=== PATIENT | male | born 1955 | race African-American/Black ===

== ENCOUNTER 2018-01-05 15:05 | Inpatient (IN) | payer MEDICARE ==
[2018-01-05] MEDS ORDERED: Ondansetron ODT 4 MG TAB ONE (16:22)
[2018-01-05] MEDS ORDERED: Acetaminophen 325 MG TAB PO PRN (17:33)
[2018-01-05] MEDS ORDERED: Zolpidem Tartrate 5 MG TAB PO PRN (17:33)
[2018-01-05] MEDS ORDERED: Ondansetron ODT 4 MG TAB PO PRN (17:33)
[2018-01-05] MEDS ORDERED: HYDROcodone/Acetaminophen 10/325 mg Tablet PO PRN (17:33)
[2018-01-05] MEDS ORDERED: Ondansetron HCl/PF 4 MG/2 ML Vial IVP PRN (17:33)
[2018-01-05 17:57] VITALS: BMI 26.6
[2018-01-05] MEDS: Nicotine 14 MG PATCH TD SCH (18:25)
[2018-01-05] MEDS: Famotidine 20 MG TAB PO SCH (20:38)
[2018-01-05] MEDS: HYDROcodone/Acetaminophen 10/325 mg Tablet PO PRN (20:39)
[2018-01-05] MEDS: Carvedilol 3.125 MG TAB PO SCH (20:40)
[2018-01-05] MEDS: Dexamethasone 10 MG/ML VIAL SLOW IVP SCH (20:40)
[2018-01-06 06:55] LABS: #Lymphocytes 1.2 thou/uL (1.20-3.40); #Monocytes 0.5 thou/uL (0.11-0.59); %Basophils 0.2 % (0.0-1.0); %Eosinophils 0.2 % (0.0-10.0); %Lymphocytes 12.7 % (21.0-51.0); %Monocytes 5.3 % (0.0-10.0); %Neutrophils 81.6 % (42.0-75.0); Hemoglobin 14.3 g/dL (14.0-18.0); Mean Corpuscular HGB CONC 33.7 g/dL (32.0-36.0); Mean Corpuscular Hemoglobin 28.9 pg (27.0-31.0); Mean Corpuscular Volume 85.8 fL (78.0-98.0); Mean Platelet Volume 7.4 fL (7.4-10.4); Platelet Count 237 thou/uL (130-400); RBC Distribution Width 12.6 % (11.5-14.5); Red Blood Cell (RBC) Count 4.93 mill/uL (4.70-6.10); White Blood Cell (WBC) Count 9.8 thou/uL (4.8-10.8)
[2018-01-06 07:14] LABS: Anion Gap 13 mmol/L (10-20); BUN (Urea Nitrogen) 11 mg/dL (8.4-25.7); Calc. Creatinine Clearance 90 mL/min (70-130); Calcium 9.5 mg/dL (7.8-10.44); Carbon Dioxide 21 mmol/L (23-31); Chloride 107 mmol/L (98-107); Estimated GFR-MDRD Greater than 90; Glucose 181 mg/dL (80-115); Potassium 4.4 mmol/L (3.5-5.1); Sodium 137 mmol/L (136-145)
[2018-01-06] MEDS: Clopidogrel Bisulfate 75 MG TAB PO SCH (09:12)
[2018-01-06] MEDS: Famotidine 20 MG TAB PO SCH ×2 (09:12→21:12)
[2018-01-06] MEDS: Carvedilol 3.125 MG TAB PO SCH ×2 (09:12→21:12)
[2018-01-06] MEDS: Aspirin 325 MG TAB PO SCH (09:12)
[2018-01-06] MEDS: Lisinopril 10 MG TAB PO SCH (09:12)
[2018-01-06] MEDS: Dexamethasone 10 MG/ML VIAL SLOW IVP SCH ×2 (09:16→21:12)
--- NOTE | 2018-01-06 10:16 | CT ---
CT OF THE CHEST WITH CONTRAST: COMPARISON: 01/05/18. HISTORY: Right lung mass with likely mediastinal adenopathy. Evaluate the adenopathy further. TECHNIQUE: Multiple contiguous axial images were obtained in a CT of the chest with contrast. Coronal reformats were performed. FINDINGS: A spiculated medial right upper lobe mass is seen measuring 3.8 cm in size. There is an enlarged rig ht hilar lymph node measuring 1.5 cm in size. There are enlarged mediastinal lymph nodes. In the pr etracheal location, there is a 4.4 cm lymph node. In the subcarinal location, there is a 1.9 cm enla rged lymph node. Calcifications are seen in the right hilar region which likely represent a calcifie d right hilar lymph node. A calcified granuloma is seen in the right lung base. Emphysematous changes are seen in the lungs. No pneumothorax or pleural effusion are seen. Atelecta sis is seen in the lung bases. The visualized subdiaphragmatic structures show no acute abnormality. Calcifications in the spleen a re from prior granulomatous disease. No abnormality is seen in the right lobe of the liver and the p rior finding on CT was likely artifactual and secondary to motion. Degenerative changes are seen in the spine. The chest wall soft tissues are unremarkable. IMPRESSION: 1. Right upper lobe mass is consistent with a primary lung cancer. 2. There is right hilar and mediastinal lymphadenopathy. POS: [facility]
--- NOTE | 2018-01-06 11:30 | MRI ---
MRI OF THE BRAIN WITHOUT AND WITH CONTRAST: COMPARISON: CT brain 01/05/18. HISTORY: Intracranial metastatic disease from patient's lung cancer. TECHNIQUE: Multiplanar, multisequence MRI images were obtained of the brain without and with IV contrast. FINDINGS: There are multiple abnormal enhancing masses seen scattered throughout both cerebral and cerebellar h emispheres. Only the 2 largest lesions are appreciated on CT. The largest lesion is seen in the mid line of the posterior cranial fossa measuring 3.1 cm in size. The cerebellar lesion, bilateral front al lesions, and bilateral occipital lesions demonstrate adjacent edema. There is susceptibility roger fact within the right frontal and cerebellar regions as well as high T1 signal which likely represent s a small amount of hemorrhage within these metastatic lesions. There is no evidence of hydrocephalus at this time. The expected flow voids are present. The corpus callosum, pituitary, and craniocervical junction are unremarkable. The calvarium and overlying soft tissues are unremarkable. The visualized paranasal sinuses and mast oid air cells are well aerated. IMPRESSION: Numerous intracranial intraparenchymal metastases. The largest is in the posterior fossa and causes effacement of the 4th ventricle and cerebral aqueduct. POS: [facility]
[2018-01-06] MEDS ORDERED: ISOVUE-370 76%-LOCM 1 ML ONE (12:27)
[2018-01-06] MEDS ORDERED: Gadobenate Dimeglumine 529 MG/1 ML (20ML VIAL) ONE (12:33)
--- NOTE | 2018-01-06 13:37 | CON ---
DATE OF CONSULTATION: 01/06/2018 REASON FOR CONSULTATION: Mr. Chi is a 62-year-old gentleman who appears to have been diagnosed with lung cancer with brain metastasis. Clinically, this appears to be a stage IV, T2 N2 M1 lesion. HISTORY OF PRESENT ILLNESS: Mr. Chi states that over about the last month or month and a half, he has had bad headaches. These headaches were daily and sometimes it wake him up. Ibuprofen help some. He had some nausea but no vomiting. He also reported some generalized weakness as well as difficulty with his balance. He has no significant weight loss. Finally, he went to the emergency room for evaluation and had a CT scan of the head which showed 2 lesions in the brain with surrounding vasogenic edema. The largest measured 3.2 cm and was in the posterior fossa and causing some effacement on the fourth ventricle. The other lesion measured 1.7 cm in the right frontal lobe. He also had a CT scan of the chest without contrast. This showed a 3.7 cm lesion in the right upper lobe of the lung. There was mediastinal adenopathy. There was question of a liver lesion. However, the exam was limited by the lack of IV contrast. He was subsequently transferred to [facility] for workup and evaluation from [place]. He was started on dexamethasone. His headaches are a little better this morning. He is still having difficulty with his balance. He denies any shortness of breath. He has had a chronic nonproductive cough which he attributes to smoking. He denies any hemoptysis. He has some occasional chest pain. He also reports some back pain which he has had longstanding. This is mostly in the upper back in the shoulder region. This has been present for 15-20 years. This does come and go. He denies any new areas of pain. He has no weight loss and voices no other complaints. PAST MEDICAL HISTORY: 1. Hypertension. 2. Coronary artery disease status post stent placement in 2012 with questionable history of myocardial infarction. 3. Bone spurs. 4. He denies other medical or surgical problems. MEDICATIONS: Lisinopril, Plavix, Coreg, Lipitor, aspirin, Decadron, Pepcid, and nicotine patch. ALLERGIES: No known medical allergies. SOCIAL HISTORY: He does live in [place], [place] with his . He smokes 1 pack per day and has done so for at least 50 years. In the past, he smoked at times more than 1 pack per day. He denies any alcohol use now. He was a heavy drinker in the past. He is a retired/disabled secondary to his foot issues. FAMILY HISTORY: His mother is still living at age 85. His father at 65 from cancer, the type of which is unknown to him. There is strong family history of diabetes in his brothers and sisters. REVIEW OF SYSTEMS: Twelve system review of system was performed and was otherwise negative. PHYSICAL EXAMINATION: VITAL SIGNS: Height 5 feet 5 inches, weight 160 pounds, blood pressure is 107/ 58, pulse is 91, respirations are 20, temperature is 98.5, O2 saturation is 93% on room air. GENERAL: He is alert and oriented and in no apparent distress. He is well- developed and well-nourished. Karnofsky performance status is 70%. EYES: Pupils equal, round, react to light. Extraocular movements are intact. ENT: Oral cavity and oropharynx normal without lesion or erythema. Palate elevates symmetrically. Gingiva is intact. NECK: Supple without preauricular, submandibular, cervical, supraclavicular adenopathy. No thyromegaly. Larynx midline. LUNGS: Breathing nonlabored. Clear to auscultation and percussion. HEART: Regular rate and rhythm without murmur. No lower extremity edema. BACK: No tenderness on fist percussion of his spine. LYMPHATIC: No axillary or inguinal adenopathy. ABDOMEN: Bowel sounds present. Soft, nontender, nondistended, without mass or hepatosplenomegaly. Liver percusses to normal size. SKIN: Without rash or purpura. NEUROLOGIC: Cranial nerves II-XII grossly intact. Motor strength is 5/5 in both upper and lower extremities in all muscle groups tested. Reflexes are normal and symmetrical. Gait reveals him to be unsteady. Cerebellar point to point testing reveals some slowness and some inaccuracy on both sides. LABORATORY AND X-RAY FINDINGS: CBC revealed a white blood cell count 9800 with a hemoglobin of 14.3, hematocrit of 42.3, platelet count of 237,000. Chemistry group showed normal electrolytes. His creatinine was 0.88. His glucose was 181. RADIOLOGIC: CT scan of the head and CT scan of the chest were both personally reviewed. CT scan of the head shows 2 circumscribed lesions. One is in the posterior fossa in the midline and measures 3.2 cm with effacement of the fourth ventricle. There is no evidence of hydrocephalus. There is surrounding vasogenic edema. The other lesion is in the right frontal lobe and measured 1.7 cm with surrounding vasogenic edema. The exam is limited by lack of contrast. CT scan of the chest shows a 3.7 cm right upper lobe lung mass. There is definitely mediastinal adenopathy in the paratracheal region on the right side. There is question of liver metastasis. Again, lack of contrast limits the CT scan of the chest. ASSESSMENT: Mr. Chi is a 62-year-old gentleman who likely has a clinical stage IV, T2 N2 M1 lung carcinoma. Likely this is going to be a nonsmall cell carcinoma of the lung. He has other comorbidities including a past coronary artery disease which seems to be under good control at the present time. PLAN: I had a long discussion with Mr. Chi regarding his diagnosis, prognosis, prognostic factors, and treatment options. His was also present in the room. I explained the likely diagnosis of lung cancer having metastasized to the brain. I explained that this is a stage IV disease and is going to be very difficult to cure. We then discussed how we should manage his lung cancer. I explained that the first issue is to obtain tissue diagnosis. Pulmonary has already been consulted for possible bronchoscopy. This will help establish the diagnosis, so that we can best determine his treatment course. I do agree with the initiation of Decadron, has already been done. Hopefully, this will improve his symptoms. I would recommend that we obtain an MRI of the brain, as well as a repeat CT scan of the chest with contrast. This will help to further staging characterize the disease also. Once we have made a tissue diagnosis and have obtain the above tests, we can then determine a treatment course. I explained to Mr. Chi that we may have several options in terms of managing the tumor in the brain. Depending on the MRI of the results, we may want to consider either surgical resection of the cerebellar mass since it is causing all of his symptoms followed by radiation therapy to the brain versus just proceeding with radiation therapy to the brain. The rest of his disease would likely be managed with some form of chemotherapy. Thus recommendations for treatment will be depending on all of the results obtained above. I will continue to follow the patient with you and will make additional recommendations once the above answers are known. Radiation can be initiated at the appropriate time on an outpatient basis. Thank you for this interesting consultation. MARCELLUS
[2018-01-06] MEDS: Nicotine 14 MG PATCH TD SCH (17:36)
[2018-01-06] MEDS ORDERED: Lidocaine 4% PF 5 ML AMP NEB SCH (20:00)
[2018-01-06] MEDS: HYDROcodone/Acetaminophen 10/325 mg Tablet PO PRN (21:11)
--- NOTE | 2018-01-07 04:39 | CON ---
DATE OF CONSULTATION: 01/06/2018 SERVICE: Pulmonary Medicine. REASON FOR CONSULTATION: Pulmonary mass. HISTORY OF PRESENT ILLNESS: The patient is a 62-year-old -Mone[place] male with past medical his tory significant for a 15-gveq-dvmx history of smoking. He does not have any dyspnea on exertion shelli t limits his activity. That being said, for the last 2-3 months, he has had increasing cough. He de nies any hemoptysis. He denies any significant weight changes. That being said, he had a chest x-ra y which was abnormal. This prompted a CT scan. Because of headache that has been ongoing for the al st 2-3 weeks, he had a CT of the head. Multiple lesions were found in the brain. There was a pulmon naif mass and possible mediastinal lymphadenopathy as well. The patient is not clear about what is ca using these issues. He denies any current fevers or chills. He is not coughing up any sputum. He h as no shortness of breath. His headaches have resolved since starting on Decadron. PAST MEDICAL HISTORY: 1. Coronary artery disease. 2. Hypertension. PAST SURGICAL HISTORY: None. FAMILY HISTORY: Multiple relatives have of cancer and/or were struck with cancer. SOCIAL HISTORY: He lives in [place], [place] with his . He has cut back to 1 pack per day. He s moked for the past 40 years on an average it has been a pack and a half a day. He denies any alcohol or illicit drug use. He has no exposure to chemicals, dust, asbestos or tuberculosis that he is michele re of. ALLERGIES: No known drug allergies. MEDICATIONS: List of his inpatient medications was reviewed. No specific updates were made at this time. REVIEW OF SYSTEMS: General, head, ears, eyes, nose, throat, cardiovascular, respiratory, GI, , mus culoskeletal, neurologic and skin is negative except as mentioned in the HPI. PHYSICAL EXAMINATION: VITAL SIGNS: Afebrile, pulse 91, blood pressure 132/81, respirations 20, saturation 96% on room air. GENERAL: The patient is awake and alert, in no apparent distress. LUNGS: Decreased air entry. Slightly prolonged expiratory phase, but no wheezing or rhonchi appreci ated. HEART: Normal rate, regular. ABDOMEN: Soft, nontender, nondistended. Bowel sounds are positive. MUSCULOSKELETAL: No cyanosis or clubbing. No pitting in the bilateral lower extremities. NEUROLOGIC: Grossly nonfocal. LYMPHADENOPATHY: Evaluation of the axillary, supraclavicular regions, inguinal, and periumbilical ar eas did not demonstrate any significant nodular abnormalities there. IMAGING: CT of the chest demonstrates right upper lobe mass consistent with primary lung cancer. It appears that there is probably some endobronchial disease. There is right hilar and mediastinal lym phadenopathy present. ASSESSMENT: 1. Lung mass. 2. Mediastinal lymphadenopathy. 3. Brain masses. PLAN: We will start with bronchoscopy. I discussed the multiple different risks associated with bro nchoscopy with the patient. The biggest ones in him are going to be bleeding, pneumothorax, and mathew iation of the brain. Any one of these things could be potentially devastating causing a lack of bloo d flow to the brain and permanent damage. He understands that it is unlikely risk, but it is a possi bility given her current situation. Other ancillary risks were discussed as well. That being said, it is probably the safest approach for us to get a tissue at this time. As such, we will plan on pro ceeding with a bronchoscopy on Sunday under general anesthesia, taking care not to increase intracra nial pressure during the operation if possible. I will have the patient return to clinic early next week to follow up the results of the biopsy. Hopefully, we will be able to get the patient a tissue diagnosis, so that we can move forward with his therapeutic options. Of note, I would perform this p rocedure tomorrow morning, but unfortunately, I was requested to present for jury duty.
[2018-01-07] MEDS: Lisinopril 10 MG TAB PO SCH (08:06)
[2018-01-07] MEDS: Carvedilol 3.125 MG TAB PO SCH ×2 (08:06→21:12)
[2018-01-07] MEDS: Clopidogrel Bisulfate 75 MG TAB PO SCH (08:06)
[2018-01-07] MEDS: Famotidine 20 MG TAB PO SCH ×2 (08:06→21:12)
[2018-01-07] MEDS: Dexamethasone 10 MG/ML VIAL SLOW IVP SCH ×2 (08:07→21:12)
[2018-01-07] MEDS: Aspirin 325 MG TAB PO SCH (08:09)
--- NOTE | 2018-01-07 10:30 | PDOC.PN ---
- Subjective Encounter Start Date: 01/07/18 Encounter Start Time: 10:28 DOING WELL EXCEPT FOR SOME ANXIETY ABOUT THE BIOPSY. HEADACHE IS IMPROVED. - Objective MAR Reviewed: Yes Vital Signs & Weight: Vital Signs (12 hours) Temp Pulse Resp BP BP Pulse Ox 01/07/18 08:06 128/76 01/07/18 07:36 97.4 F L 74 18 128/76 95 Weight Weight 160 lb I&O: 01/06/18 01/07/18 01/08/18 06:59 06:59 06:59 Intake Total 500 1500 Balance 500 1500 Result Diagrams: 01/06/18 06:29 01/06/18 06:29 Radiology Reviewed by me: Yes Phys Exam - Physical Examination Constitutional: NAD HEENT: PERRLA, oral pharynx no lesions Neck: no JVD, supple Respiratory: no wheezing, no rales, no rhonchi, clear to auscultation bilateral Cardiovascular: RRR, no significant murmur, no rub Gastrointestinal: soft, non-tender, no distention, positive bowel sounds Musculoskeletal: no edema Psychiatric: normal affect, A&O x 3 Skin: normal turgor Dx/Plan (1) Lung mass Code(s): R91.8 - OTHER NONSPECIFIC ABNORMAL FINDING OF LUNG FIELD Status: Acute Plan: VERY LIKELY LUNG PRIMARY NEOPLASM. BIOPSY TOMORROW. (2) Brain metastases Code(s): C79.31 - SECONDARY MALIGNANT NEOPLASM OF BRAIN Status: Acute Plan: PLAN PENDING THE BIOPSY. SURG. VS XRT VS BOTH. DECADRON HELPING WITH HOLDEN. (3) CAD (coronary artery disease), [place] coronary artery Code(s): I25.10 - ATHSCL HEART DISEASE OF [place] CORONARY ARTERY W/O ANG PCTRS Status: Acute Plan: STABLE. CONTINUE HOME MEDS. (4) HTN (hypertension) Code(s): I10 - ESSENTIAL (PRIMARY) HYPERTENSION Status: Acute Plan: STABLE. CONTINUE WITH HOME MEDS. COREG AND ZESTRIL. (5) Tobacco abuse Code(s): Z72.0 - TOBACCO USE Status: Acute Plan: ON PATCH. - Plan * .
--- NOTE | 2018-01-07 13:53 | PRG ---
DATE OF SERVICE: 01/07/2018 SUBJECTIVE: Mr. Chi is doing better today. His headaches have resolved with the Decadron. He fe els his balance is better. He is able to walk to the bathroom by himself carefully. He has no new s ymptoms. OBJECTIVE: VITAL SIGNS: Height 5 feet 5 inches, weight 160 pounds, blood pressure 128/76, pulse is 74, respirat ions are 18, temperature is 97.4, O2 saturation is 95%. GENERAL: He is alert and oriented and in no apparent distress. Karnofsky performance status remains 70%. NECK: Supple without cervical or supraclavicular adenopathy. No thyromegaly. Larynx midline. LUNGS: Breathing nonlabored. Clear to auscultation and percussion. CARDIOVASCULAR: Heart regular rate and rhythm without murmur. EXTREMITIES: No lower extremity edema. NEUROLOGIC: Motor strength, still good and equal in all extremities. Gait was not tested. RADIOLOGIC: MRI of the brain and CT scan of the chest with contrast performed yesterday were both pe rsonally reviewed and discussed with him. MRI of the brain shows numerous contrast enhancing lesions . There is more than 10 lesions. The largest is in the cerebellum and is causing some effacement of the fourth ventricle. There is no hydrocephalus. There is surrounding vasogenic edema. CT of the chest confirms the right upper lobe lung mass with mediastinal and subcarinal adenopathy. The liver did not appear to have a lesion as was suggested by the earlier noncontrast CT scan. ASSESSMENT: Mr. Chi is a 62-year-old gentleman who has likely lung cancer with brain metastasis. This is likely going to be a nonsmall cell cancer of the lung. Clinically, this is a stage IV, T2 N 2 M1 lesion. PLAN: He is improved on dexamethasone. I will continue the dexamethasone and once he gets passes br onchoscopy, can transition him over to p.o. dexamethasone. I would treat him with 4 mg p.o. every 6 hours. This could be tapered slowly as an outpatient. We still need to obtain tissue diagnosis. He has been seen by Dr. Rick. A bronchoscopy is planned for tomorrow. Hopefully, this will yield t issue diagnosis. Because he has numerous contrast enhancing lesions, I would not favor neurosurgical intervention unless he deteriorates. I think his best treatment option is going to be with whole-br ain radiation therapy. The logistics of whole-brain radiation therapy as well as the benefits and ri sks were discussed. The simulation procedure was discussed. Side effects would include but not be l imited to skin reaction, hair loss which may be permanent, lower blood counts, fatigue, headache, maritza sea, vomiting, and small risk of damage to his normal brain which might affect mentation or memory. Time was taken to answer all of his questions regarding his treatment options. He is tentatively agr eeable to proceed. He does have transportation as an outpatient when the time comes. We will procee d with bronchoscopy tomorrow and then consider a simulation after that and will start his radiation t herapy after his tissue diagnosis is known.
[2018-01-07] MEDS: Nicotine 14 MG PATCH TD SCH (18:02)
[2018-01-07] MEDS: HYDROcodone/Acetaminophen 10/325 mg Tablet PO PRN (21:11)
[2018-01-08] MEDS: Dexamethasone 10 MG/ML VIAL SLOW IVP SCH ×2 (08:41→20:17)
[2018-01-08] MEDS: Carvedilol 3.125 MG TAB PO SCH ×2 (08:41→21:16)
[2018-01-08] MEDS ORDERED: Ondansetron HCl/PF 4 MG/2 ML Vial ONE (13:19)
[2018-01-08] MEDS ORDERED: Lidocaine 1% PF 5 ML VIAL ONE (13:19)
[2018-01-08] MEDS ORDERED: PROPOFOL 200 MG/20 ML VIAL ONE (13:19)
[2018-01-08] MEDS ORDERED: Succinylcholine Chloride 20 MG/ML 10 ml SYRINGE FS ONE (13:19)
[2018-01-08] MEDS ORDERED: Fentanyl 100 MCG/2 ML VIAL ONE (13:39)
[2018-01-08] MEDS ORDERED: Midazolam HCl 2 mg/2 ml Vial ONE (13:39)
[2018-01-08] MEDS: Clopidogrel Bisulfate 75 MG TAB PO SCH (17:54)
[2018-01-08] MEDS: Famotidine 20 MG TAB PO SCH ×2 (18:04→20:17)
[2018-01-08] MEDS: Aspirin 325 MG TAB PO SCH (18:07)
[2018-01-08] MEDS: Nicotine 14 MG PATCH TD SCH (18:07)
[2018-01-08] MEDS: Lisinopril 10 MG TAB PO SCH (18:07)
--- NOTE | 2018-01-08 18:12 | PRG ---
DATE OF SERVICE: 01/08/2018 SERVICE: Pulmonary Medicine. INTERVAL HISTORY: The patient is doing fine from a respiratory standpoint. He is breathing comforta yun. He is in his usual state of health and does not have any chest discomfort, nausea, vomiting, fe vers or chills. Otherwise, there has been no interval change to his condition. PHYSICAL EXAMINATION: VITAL SIGNS: Afebrile, pulse 71, blood pressure 158/76, respirations 16, saturation 97% on room air. GENERAL: The patient is awake, alert, in no apparent distress. LUNGS: Decent air entry bilaterally with no prolonged expiratory phase, wheezing, rhonchi or crackle s. HEART: Normal rate, regular. ABDOMEN: Soft, nontender, nondistended. Bowel sounds are positive. MUSCULOSKELETAL: No cyanosis or clubbing. No pitting in the bilateral lower extremities. NEUROLOGIC: Grossly nonfocal. LABORATORY DATA: WBC 9.8, hemoglobin 14.3, platelets 237,000. Basic metabolic profile is otherwise unremarkable. ASSESSMENT: 1. Lung mass. 2. Mediastinal lymphadenopathy. 3. Brain masses. PLAN: We will perform a bronchoscopy today. Hopefully, we can get the patient a sample this lesion so that we can figure out what it is. We will continue to follow while the patient remains in house, but from my perspective, once we collect our sample, he will be in a position where we can consider transitioning him out of the hospital.
--- NOTE | 2018-01-08 21:15 | OP ---
DATE OF SERVICE: 01/08/2018 SERVICE: Pulmonary Medicine. PROCEDURE: Fiberoptic bronchoscopy with: 1. Visual airway inspection. 2. Bronchial washing from the right upper lobe. 3. Endobronchial biopsies from the right upper lobe. PREPROCEDURE DIAGNOSIS: Pulmonary mass. POSTPROCEDURE DIAGNOSIS: Pulmonary mass. PROCEDURE SENIOR TELECOMMUNICATIONS SPECIALIST: Raffaele Rick M.D. MEDICATIONS USED: For list of medications, please refer to anesthesia documentation. PREANESTHESIA ASSESSMENT: H and P had been performed. The patient's medications and allergies were reviewed. Informed consent was obtained after discussing the risks, benefits, and rationale for perf orming the procedure as well as alternative options. DESCRIPTION OF PROCEDURE: A timeout was performed, identifying the correct procedure and patient wit h name and date of . A diagnostic fiberoptic bronchoscope was introduced through the existing e ndotracheal tube. Tracheobronchial tree inspection was carried out with clear identification of the right upper lobe, right middle lobe, right lower lobe, left upper lobe, lingula, and left lower lobe. Anatomy was normal to the segmental level with the exception of an endobronchial mass in the right upper lobe. There was an anterior and posterior segment. I am not certain where the superior segmen t stem from. That being said, in the posterior segment, the more superior bronchus was completely oc cluded by the endobronchial mass. I could not pass any instruments distal to it. Multiple biopsies were taken from this lesion. Bronchial washing was obtained from the same area. Hemostasis was veri fied and bronchoscope was subsequently removed from the patient post procedure. FINDINGS: 1. Endobronchial disease was identified causing 100% occlusion of a subsegment bronchus in the poste rior segment of the right upper lobe. 2. Secretions were thick, but minimal. SPECIMENS OBTAINED: 1. Endobronchial biopsies from the right upper lobe. 2. Bronchial washing from the right upper lobe. COMPLICATIONS: None. ESTIMATED BLOOD LOSS: Less than 5 mL. FLUOROSCOPY TIME: None. DISPOSITION: The patient will return to his floor once he meets criteria.
--- NOTE | 2018-01-08 21:59 | PDOC.PN ---
- Subjective Encounter Start Date: 01/08/18 Encounter Start Time: 19:00 Doing well after his bronch. Headache is improved. - Objective Vital Signs & Weight: Vital Signs (12 hours) Temp Pulse Resp BP BP BP Pulse Ox 01/08/18 19:36 97.6 F 92 16 124/66 94 L 01/08/18 18:09 97.9 F 85 18 121/64 94 L 01/08/18 18:07 121/64 01/08/18 16:25 97.3 F L 72 18 131/81 96 01/08/18 11:20 97.6 F 71 16 158/76 H 97 Weight Weight 160 lb I&O: 01/07/18 01/08/18 01/09/18 06:59 06:59 06:59 Intake Total 1500 1360 900 Balance 1500 1360 900 Result Diagrams: 01/06/18 06:29 01/06/18 06:29 Phys Exam - Physical Examination Neck: no JVD, supple Respiratory: no wheezing, no rales, no rhonchi, wheezing present Cardiovascular: RRR, no significant murmur Gastrointestinal: soft, non-tender, no distention Musculoskeletal: no edema Dx/Plan (1) Lung mass Code(s): R91.8 - OTHER NONSPECIFIC ABNORMAL FINDING OF LUNG FIELD Status: Acute Plan: Likely cancer. Bronch biopsy performed. (2) Brain metastases Code(s): C79.31 - SECONDARY MALIGNANT NEOPLASM OF BRAIN Status: Acute Plan: On Decadron. Will nereyda receive whole brain radiation. (3) CAD (coronary artery disease), [place] coronary artery Code(s): I25.10 - ATHSCL HEART DISEASE OF [place] CORONARY ARTERY W/O ANG PCTRS Status: Acute (4) HTN (hypertension) Code(s): I10 - ESSENTIAL (PRIMARY) HYPERTENSION Status: Acute (5) Tobacco abuse Code(s): Z72.0 - TOBACCO USE Status: Acute - Plan * Watch tonight following biopsy. * Transition to oral decadron tomorrow. * Likely discharge tomorrow.
[2018-01-09 07:26] VITALS: BP 120/73; TEMP 97.4
[2018-01-09] MEDS: Dexamethasone 10 MG/ML VIAL SLOW IVP SCH (09:33)
[2018-01-09] MEDS: Aspirin 325 MG TAB PO SCH (09:34)
[2018-01-09] MEDS: Carvedilol 3.125 MG TAB PO SCH (09:34)
[2018-01-09] MEDS: Clopidogrel Bisulfate 75 MG TAB PO SCH (09:34)
[2018-01-09] MEDS: Lisinopril 10 MG TAB PO SCH (09:34)
[2018-01-09] MEDS: Famotidine 20 MG TAB PO SCH (09:34)
--- NOTE | 2018-01-09 18:58 | PRG ---
DATE OF SERVICE: 01/09/2018 SERVICE: Pulmonary Medicine. INTERVAL HISTORY: The patient is doing fine following bronchoscopy. He does not have any complaints of fevers, chills, nausea or vomiting. He is not coughing up any blood. Otherwise, there has been no interval change to his condition. OBJECTIVE: VITAL SIGNS: Afebrile, pulse 101, blood pressure 120/73, respirations 20, saturation 96% on room air . GENERAL: The patient is awake, alert, no apparent distress. LUNGS: Excellent air entry. There is no prolonged expiratory phase or wheezing present. HEART: Normal rate, regular. ABDOMEN: Soft, nontender, nondistended. Bowel sounds are positive. MUSCULOSKELETAL: No cyanosis or clubbing. No pitting of bilateral lower extremities. NEUROLOGIC: Grossly nonfocal. ASSESSMENT: 1. Lung mass, status post endobronchial biopsy. 2. Mediastinal lymphadenopathy. 3. Brain masses. DISCUSSION AND PLAN: From my perspective, the patient is stable for transition out of the hospital p rovided that we have a plan in place. Pulmonary Critical Care will continue to follow along if he re meg in this location. I will have him return to clinic to see me in the outpatient setting within 3-5 days to follow up the results of the pathology.
--- NOTE | 2018-01-10 08:14 | DIS ---
DATE OF ADMISSION: 01/05/2018 DATE OF DISCHARGE: 01/09/2018 DISCHARGE DIAGNOSES: 1. Lung mass with significant lymphadenopathy, highly suspicious for lung cancer. 2. Brain lesions consistent with metastatic disease. 3. History of coronary artery disease. 4. History of hypertension. 5. History of smoking history. HISTORY OF PRESENT ILLNESS: This patient is a 62-year-old male with a history of tobacco abuse who h as had several weeks of worsening headaches. The patient presented to the [facility] where he had a workup including CT scan revealing what appeared to be metastatic lesions in the b rain. The patient was subsequently transferred to [facility]. HOSPITAL COURSE: The patient was admitted to the hospital, had a CT scan of the chest which revealed a spiculated lesion of 3.8 cm in the right upper lobe along with right hilar lymph node measuring 1. 5 cm about mediastinal lobes, pretracheal location is a 4.4 cm lymph node, and subcarinal area 1.9 cm lymph node, calcifications seen in the right hilar region, likely representing calcified hilar lymph node. An MRI of the brain revealed numerous intracranial and intraparenchymal metastases, the large st in the posterior fossa and causing effacement of the fourth ventricle and cerebral aqueduct. Radi ation Oncology was consulted as well as Pulmonology. Ultimately, Radiation Oncology started the de ent dexamethasone and I felt he might be a reasonable candidate for some whole brain radiation. Pulm onology took the patient for bronchoscopy and performed a biopsy. Once the biopsy was performed, the patient had been seen by Radiation Oncology. He was felt to be stable for discharge. I spoke perso rand with Dr. Fernandez and she will be getting the patient into the medical oncology clinic as well. The patient's symptoms had significantly improved with the Decadron. DISCHARGE PHYSICAL EXAMINATION: VITAL SIGNS: Temperature was 97.4, pulse was 101, blood pressure 120/73, respirations 20, O2 sat 96% on room air. GENERAL: The patient is awake, alert, and oriented. He is pleasant and cooperative. HEART: Regular rate and rhythm without murmurs. LUNGS: Clear bilaterally. ABDOMEN: Soft, nontender, nondistended. EXTREMITIES: Warm and dry. DISPOSITION: The patient will be discharged to home. He is to have a regular diet. His activity le bonnie is as tolerated. He is set up with the Radiation Oncology clinic on the . The Medical Oncol ogy Clinic will work with the patient for an appointment there. DISCHARGE MEDICATIONS: Dexamethasone 4 mg p.o. q.6 hours, lisinopril 10 mg p.o. q. day, Plavix 75 mg q. day, Coreg 3.125 mg 1 p.o. q. day, atorvastatin 40 mg 1 p.o. q. day, aspirin 325 one p.o. q. day, tramadol 50 mg p.o. q.6 hours p.r.n. pain. FOLLOWUP: The patient was encouraged to follow up with his PCP in the next few days and return to [facility] emergency department should he have any problems prior to that time.
[2018-01-11 04:17] LABS: Fungus Stain Final report (.)
== END 2018-01-09 12:47 | disposition home or self-care (01) | DRG 167 ==
LOC: ERS 15:05 → ONC 17:36
PROVIDERS: ADMIT Internal Medicine Infectious Disease; ATTEND Internal Medicine Infectious Disease
PROC: 0BBC8ZX Excision of Right Upper Lung Lobe, Via Natural or Artificial Opening Endoscopic, Diagnostic (ICD-10-PCS; principal; 2018-01-08)
PROC: 0BDC8ZX Extraction of Right Upper Lung Lobe, Via Natural or Artificial Opening Endoscopic, Diagnostic (ICD-10-PCS; 2018-01-08)
DX: C34.11 Malignant neoplasm of upper lobe, right bronchus or lung (principal); C79.31 Secondary malignant neoplasm of brain; I25.10 Atherosclerotic heart disease of native coronary artery without angina pectoris; I10 Essential (primary) hypertension; Z87.891 Personal history of nicotine dependence; R59.1 Generalized enlarged lymph nodes
CPT/HCPCS: 36415; 70553; 71260; 80048; 85025; 87070; 87102; 87116; 87205; 87206; 88112; 88305; 88313; 88341; 88342; 90471; 90732; 99285; A9579; G0009; J1100; J2250; J3010; Q0162

== ENCOUNTER 2018-01-29 06:50 | Outpatient (CLI) | payer MEDICARE ==
--- NOTE | 2018-01-29 08:56 | CT ---
CT CHEST AND ABDOMEN WITH CONTRAST: Multiple axial tomograms were obtained through the chest and abdomen with IV enhancement. INDICATION: Neoplasm of right lung. New baseline. COMPARISON: Comparison is made to CT chest 01/06/18. FINDINGS: Mass in the medial right upper lung is again noted. This mass abuts the mediastinum. AP measurement in the axial plane was recorded at 3.3 cm today. Previously, this AP dimension was recorded at 3.8 cm. There is associated mediastinal pathologic adenopathy. There is a heterogeneous mass in the par atracheal region abutting this medial right lung mass. This mediastinal component is contiguous and may represent mediastinal involvement of the lung mass. Total width in the axial plane including the mediastinal component at the same level as the AP measurement is recorded at 5.4 cm today. Previous width at the same level is unchanged at 5.4 cm. There does appear to be a separate lymph node just inferior in the paratracheal region which extends to the lucinda. This lymph node measures 4.0 cm AP dimension today. This does not appear significantly changed. There is a pathologic lymph node seen posterior to the lucinda which measures 2.0 cm width, unchanged from the prior study. There are densely calcified right hilar lymph nodes which are again noted. Lung ma are otherwise clear. There is abnormal sclerosis noted on the first vertebral body imaged on this study which appears to r epresent C7. This sclerosis appears to involve the posterior elements and is suspicious for metastas is. Images through the abdomen were obtained. The liver, spleen, and pancreas appear unremarkable. The adrenal gland is unremarkable. There is a small low-density focus in the right renal cortex superior ly which appears stable from prior exam measuring approximately 7 mm. The kidneys are otherwise unre markable. Visualized bowel loops unremarkable. Aorta is normal caliber. No adenopathy in the abdomen identifi ed. IMPRESSION: 1. Mass in the medial right upper lung which appears to extend into the mediastinum is again noted. AP dimension is slightly smaller in the axial plane, although the width including the mediastinal co mponent is unchanged. 2. The associated mediastinal adenopathy does not appear significantly changed. 3. Evidence of a sclerotic metastasis involving the C7 vertebra, incompletely evaluated. POS: [facility]
--- NOTE | 2018-01-29 11:23 | NM ---
WHOLE BODY BONE SCAN: CLINICAL HISTORY: Malignant neoplasm of upper lobe, right bronchus. TECHNIQUE: Subsequent IV administration of 33 millicuries of technetium 99m MDP IV. FINDINGS: Scintigraphic imaging of the axial and appendicular skeleton was performed, which revealed no scintig raphic evidence of osseous metastatic disease. There is mild increased scintigraphic activity at the mandibular region, which likely relates to odontogenic disease. There is mild scattered degenerativ e change involving the upper and lower extremities. IMPRESSION: No scintigraphic evidence of osseous metastatic disease. POS: [facility]
[2018-01-29] MEDS ORDERED: Iopamidol 370 76% 100 ML VIAL ONE (12:25)
== END 2018-01-29 06:51 | disposition home or self-care (01) ==
LOC: CT 06:50
PROVIDERS: ATTEND Internal Medicine Medical Oncology
DX: C34.11 Malignant neoplasm of upper lobe, right bronchus or lung (principal); R59.0 Localized enlarged lymph nodes; C79.51 Secondary malignant neoplasm of bone
CPT/HCPCS: 71260; 74160; 78306; A9503

== ENCOUNTER 2018-02-17 12:36 | Observation (INO) | payer MEDICARE ==
[~2018-02-17 12:36] MED LIST: Regadenoson 0.4 MG/5 ML SYRINGE ONE
[2018-02-17] MEDS ORDERED: ISOVUE-370 76%-LOCM 1 ML ONE (12:50)
[2018-02-17] MEDS ORDERED: Bisacodyl 5 MG TAB PO PRN (13:33)
[2018-02-17] MEDS ORDERED: Acetaminophen 325 MG TAB PO PRN (13:33)
[2018-02-17] MEDS ORDERED: Acetaminophen 650 MG Suppository PR PRN (13:33)
[2018-02-17 13:35] LABS: CKMB 0.7 ng/mL (0-6.6); Troponin I Less than 0.010 ng/mL (< 0.028)
--- NOTE | 2018-02-17 14:09 | HP ---
PR[facility] CARE [facility] [place]. CHIEF COMPLAINT: Chest pain. HISTORY OF PRESENT ILLNESS: Mr. Chi is a pleasant 62-year-old gentleman who was seen at [facility] on 02/17/2018. He has a history of metastatic lung cancer, metastasis to brain. He underwent radiation therapy for the last 2 weeks. He is scheduled to start chemotherapy tomorrow. Around 5 or 6 a.m. today, he was woken up from sleep because of chest pain. He reports that the pain is retrosternal, 6/10 in intensity, dull, nonradiating, not accompanied by shortness of breath or li ghtheadedness, but accompanied by nausea. He also reports a chronic cough. He cannot recall any agg ravating or relieving factors for the chest pain. Currently, he does not have chest pain. He denies having similar chest pain in the past. He does have a history of coronary artery disease, status post percutaneous coronary intervention with stent. REVIEW OF SYSTEMS: All other systems reviewed and found to be negative. PAST MEDICAL HISTORY: Metastatic adenocarcinoma of the lung, brain metastases, status post radiation therapy, hypertension, coronary artery disease, status post stent placement in 2012. PAST SURGICAL HISTORY: DIRECT OF REAL ESTATE with stent in 2012, bilateral foot surgery, bronchoscopy in 12/2017. SOCIAL HISTORY: Patient denies any current tobacco use, alcohol use or recreational drug use. FAMILY HISTORY: Denies any family history of premature coronary artery disease. ALLERGIES: LATEX. CURRENT MEDICATIONS: Carvedilol 3.125 mg 2 times a day, Lipitor 40 mg daily, tramadol 50 mg every 6 hours as needed, lisinopril 10 mg daily, Zofran every 6 hours as needed, levothyroxine 75 mcg daily, Compazine p.r.n., meclizine p.r.n., pantoprazole 40 mg daily. PHYSICAL EXAMINATION: GENERAL: On examination, Mr. Chi is awake and alert, not in acute distress. VITAL SIGNS: Blood pressure is 123/76, pulse 74, respiratory rate 18, and oxygen saturation 97% on r oom air. He is afebrile. EYES: No scleral icterus. No conjunctival pallor. ENT: Moist mucosal membranes, no oropharyngeal erythema or exudates. NECK: Supple, nontender. Trachea is midline. RESPIRATORY: Accessory muscles of breathing are not active. Chest wall movements are symmetric bila terally. LUNGS: Clear to auscultation without wheeze, rhonchi or crepitations. CARDIOVASCULAR: S1 and S2 are heard, regular. Peripheral pulses palpable. No carotid bruit, no per icardial rub. ABDOMEN: Soft, nontender, bowel sounds are heard, no hepatomegaly, no splenomegaly. NEUROLOGIC: Cranial nerves II-XII intact. Deep tendon reflexes 2+. MUSCULOSKELETAL: Power is 5/5 in all 4 extremities. SKIN: No rashes or subcutaneous nodules. LYMPHATIC: No cervical lymphadenopathy. PSYCHIATRIC: Normal mood, normal affect, patient is oriented to person, place, and time. DATABASE: Mr. Chi's labs and investigations were reviewed. I reviewed his electrocardiogram, whi ch does not show any ST changes to suggest an acute coronary syndrome. He is in normal sinus rhythm. I also reviewed his chest x-ray which shows right perihilar mass. No pulmonary infiltrates. He fox s a normal white count, normocytic anemia with hemoglobin of 13.5, normal platelet count, normal sodi um, normal potassium, normal creatinine, unremarkable liver profile and normal calcium. ASSESSMENT AND PLAN: Mr. Chi is a pleasant 62-year-old gentleman who was seen at [facility] on 02/17/2018. His problem list includes: 1. Chest pain: Mr. Chi presented with chest pain to the emergency room at [place], and was subs equently transferred here. His troponin I is normal. EKG is unremarkable. We will admit him to the hospital for telemetry monitoring. We will order stress test. The patient is also awaiting CT matt ogram of the chest to rule out pulmonary embolism as ordered by emergency room physician. 2. Lung cancer. Patient is scheduled to have chemotherapy tomorrow. We will discuss with Oncology Service to see what the recommendation would be. 3. Hypertension: Monitor vital signs, titrate antihypertensives as needed. 4. Dyslipidemia: Continue statin. Many thanks for allowing me to participate in your patient's care. Please feel free to contact me wi th any questions or concerns. LEVEL OF RISK: High. LEVEL OF COMPLEXITY: High.
[2018-02-17 17:57] VITALS: BMI 25.3
--- NOTE | 2018-02-17 17:58 | NM ---
MYOCARDIAL PERFUSION EVALUATION: INDICATIONS: A 62-year-old male with chest pain. RADIOPHARMACEUTICAL: Technetium 99m sestamibi 27 millicuries and 10 millicuries IV administered for stress and rest. FINDINGS: There is no significant fixed or reversible defect of the left ventricular gann. Gated imaging reve als wall motion and contractility with a calculated LVEF of 61%. IMPRESSION: 1. There is no scintigraphic evidence of significant ischemia or scar. 2. Normal left ventricular systolic function. POS: [facility]
[2018-02-17] MEDS ORDERED: Meclizine HCl 25 MG TAB PO PRN (18:53)
[2018-02-17] MEDS ORDERED: Prochlorperazine Maleate 5 MG TAB PO PRN (18:53)
--- NOTE | 2018-02-17 20:24 | CT ---
CTA CHEST WITH 3D VOLUME RENDERING: CLINICAL HISTORY: Lung cancer. Chest pain. History of heart disease. FINDINGS: Redemonstration of the patient's known malignancy, centered at the right paramediastinal region. Thi s is slightly smaller when compared to a 01/29/2018 exam and may relate to an interval response to th erapy. Correlate clinically in this regard. There is no significant filling defect in the pulmonary arteries to indicate pulmonary embolus of acu ity. There is mild scattered vascular disease. Pulmonary emphysema is present. No effusion or pneu mothorax. There is osseous degenerative change. Granulomatous calcification is seen at the spleen. There is a partially imaged hypodensity of the left kidney, demonstrated as a cyst on prior imaging. There is slight nodularity of the left adrenal gland. IMPRESSION: 1. No acute pulmonary embolus. 2. Redemonstration of malignancy at the right paramediastinal region, slightly smaller than on the 0 01/19/2018 examination, measuring approximately 5.1 x 4.2 x 3.6 cm. 3. Slight nodularity of the left adrenal gland. The possibility of a developing small mass cannot b e excluded, although it is too small for reliable assessment; therefore, imaging followup should be o btained, which may be performed as an adrenal mass protocol CT of the abdomen, or alternatively, PET/ CT. POS: [facility]
[2018-02-17] MEDS: Dexamethasone 4 MG TAB PO SCH (20:46)
[2018-02-17] MEDS: Carvedilol 3.125 MG TAB PO SCH (20:49)
[2018-02-17] MEDS ORDERED: Atorvastatin Calcium 40 MG TAB PO SCH (21:00)
[2018-02-17] MEDS ORDERED: diphenhydrAMINE 25 MG CAP PO PRN (21:28)
[2018-02-17] MEDS ORDERED: Ondansetron ODT 4 MG TAB PO PRN (22:04)
[2018-02-18 05:01] LABS: #Lymphocytes 1.2 thou/uL (1.20-3.40); #Monocytes 0.5 thou/uL (0.11-0.59); #Neutrophils 6.6 thou/uL (1.40-6.50); %Basophils 0.1 % (0.0-1.0); %Eosinophils 0.4 % (0.0-10.0); %Lymphocytes 14.7 % (21.0-51.0); %Monocytes 5.6 % (0.0-10.0); %Neutrophils 79.1 % (42.0-75.0); Hemoglobin 13.1 g/dL (14.0-18.0); Mean Corpuscular HGB CONC 33.9 g/dL (32.0-36.0); Mean Corpuscular Hemoglobin 29.7 pg (27.0-31.0); Mean Corpuscular Volume 87.4 fL (78.0-98.0); Mean Platelet Volume 6.6 fL (7.4-10.4); Platelet Count 305 thou/uL (130-400); Red Blood Cell (RBC) Count 4.41 mill/uL (4.70-6.10); White Blood Cell (WBC) Count 8.3 thou/uL (4.8-10.8)
[2018-02-18 05:20] LABS: Anion Gap 15 mmol/L (10-20); BUN (Urea Nitrogen) 11 mg/dL (8.4-25.7); Calc. Creatinine Clearance 106 mL/min (70-130); Calcium 8.8 mg/dL (7.8-10.44); Carbon Dioxide 19 mmol/L (23-31); Chloride 106 mmol/L (98-107); Estimated GFR-MDRD Greater than 90; Glucose 197 mg/dL (80-115); Potassium 3.7 mmol/L (3.5-5.1); Sodium 136 mmol/L (136-145)
[2018-02-18] MEDS ORDERED: Lisinopril 5 MG TAB PO SCH (09:00)
[2018-02-18] MEDS ORDERED: Enoxaparin Sodium 40 MG/0.4 ML SYRINGE SC SCH (09:00)
[2018-02-18] MEDS ORDERED: Aspirin 325 MG TAB PO SCH (09:00)
[2018-02-18] MEDS: Carvedilol 3.125 MG TAB PO SCH (10:01)
[2018-02-18] MEDS: Dexamethasone 4 MG TAB PO SCH (10:01)
[2018-02-18 12:39] VITALS: BP 128/66; TEMP 98.3
--- NOTE | 2018-02-18 19:21 | DIS ---
DATE OF ADMISSION: 02/17/2018 DATE OF DISCHARGE: 02/18/2018 PRIMARY CARE PROVIDER: Windy Norris. ADMITTING DIAGNOSIS: Chest pain. DISCHARGE MEDICATIONS: No change was made to his preadmission home medications as dictated on my his tory and physical note dated 01/17/2018. CONDITION OF PATIENT ON THE DAY OF DISCHARGE: Stable. I assessed Mr. Chi on the day of discharge . He denies any chest pain or shortness of breath. Vital signs are stable. S1 and S2 are heard, re gular. Lungs are clear to auscultation bilaterally. HOSPITAL COURSE: Mr. Chi is a pleasant 62-year-old gentleman who was admitted to [facility] on 02/17/[address] angiogram of the chest did not reveal any acute p ulmonary embolus. It redemonstrated malignancy at the right paramediastinal region, slightly smaller than on 01/19/2018 examination. He also had slight nodularity of the left adrenal gland. The possi bility of a developing small mass could not be excluded, although it was too small for level assessme nt. Radiologist recommends adrenal mass protocol CT of the abdomen or PET/CT. He also had a nuclear stress test, which did not show any scintigraphic evidence of significant ische graeme or scar. Left ventricular ejection fraction was 61%. His symptoms resolved during the hospitalization. He is being discharged home in a stable condition. On the day of discharge, he has white count 8300, hemoglobin 13.1, platelet count 305,000. Normal so dium, normal potassium, and normal creatinine. Many thanks for allowing me to participate in your patient's care. Please feel free to contact me wi th any questions or concerns. DISCHARGE DESTINATION: Home.
--- NOTE | 2018-03-01 09:40 | STRESS ---
Acquisition Time: 2018-02-17 15:45:40 Total Exercise Time: 00:00:01 Test Indications: CHEST PAIN Medications: Protocol: LEXISCAN Max HR: 106 BPM 66% of Pred: 159 BPM Max BP: 122/072 mmHG Max Work Load: 1.0 METS RESTING ECG: NORMAL SINUS RHYTHM SYMPTOMS: DYSPNEA ON EXERTION NORMAL BP RESPONSE ECTOPY: NONE ECG STRESS: NO SIGNIFICANT CHANGES INTERPRETATION: AWAIT NUCLEAR IMAGES FOR DEFINITIVE DIAGNOSIS Confirmed by JENNIFER CHANDLER ([id number]), order editor GARCÍA BERNABE ([id number]) on 03/01/2018 9:39:45 AM Referred By: MD Davon VELEZ Confirmed By:JENNIFER CHANDLER
--- NOTE | 2018-03-02 11:12 | EKG ---
Test Reason : EMERGENCY EXAM Blood Pressure : / mmHG Vent. Rate : 071 BPM Atrial Rate : 071 BPM P-R Int : 118 ms QRS Dur : 090 ms QT Int : 406 ms P-R-T Axes : 052 001 025 degrees QTc Int : 441 ms Normal sinus rhythm Normal ECG Confirmed by AARON TURNER DO ([id number]), scientific editor RENNY BURROUGHS ([id number]) on 03/02/2018 11:12:25 AM Referred By: Confirmed By:AARON TURNER DO
== END 2018-02-18 13:03 | disposition home or self-care (01) ==
LOC: ERS 12:36 → 2SW 13:23 → EEVIPCON 13:23
PROVIDERS: ADMIT Internal Medicine; ATTEND Internal Medicine
DX: R07.9 Chest pain, unspecified (principal); I10 Essential (primary) hypertension; I25.10 Atherosclerotic heart disease of native coronary artery without angina pectoris; E78.5 Hyperlipidemia, unspecified; Z91.040 Latex allergy status; Z79.899 Other long term (current) drug therapy
CPT/HCPCS: 71275; 78452; 80048; 82550; 82553; 84484; 85025; 93005; 93017; 94760; 96372; 99285; A9500; G0378 ×2; 36415; J1650; J2785; J8540

== ENCOUNTER 2018-02-25 09:07 | Day surgery (SDC) | payer MEDICARE ==
[2018-02-25] MEDS ORDERED: Sodium Chloride 0.9% 30 ML ONE (09:57)
[2018-02-25] MEDS ORDERED: SODIUM CHLORIDE 0.9% IVPB SCH ×3 (10:00)
[2018-02-25] MEDS ORDERED: Dexamethasone 10 MG, Ondansetron 2MG/ML MDV 10 MG in Sodium Chloride 0.9% 50 ML IVPB SCH (10:00)
[2018-02-25] MEDS ORDERED: CARBOPLATIN IVPB SCH (10:00)
[2018-02-25] MEDS ORDERED: PEMETREXED IVPB SCH ×2 (10:00)
[2018-02-25 10:32] VITALS: BP 146/82; TEMP 98.6
== END 2018-02-25 16:05 | disposition home or self-care (01) ==
LOC: ONC/OP 09:07
PROVIDERS: ATTEND Internal Medicine Medical Oncology
DX: Z51.11 Encounter for antineoplastic chemotherapy (principal); C34.11 Malignant neoplasm of upper lobe, right bronchus or lung; I25.10 Atherosclerotic heart disease of native coronary artery without angina pectoris; I10 Essential (primary) hypertension; I25.2 Old myocardial infarction; K21.9 Gastro-esophageal reflux disease without esophagitis; Z79.82 Long term (current) use of aspirin; Z79.02 Long term (current) use of antithrombotics/antiplatelets; Z79.899 Other long term (current) drug therapy; Z87.891 Personal history of nicotine dependence
CPT/HCPCS: 96367; 96411; 96413; A4216; J1100; J2405; J7050; J9045; J9305

== ENCOUNTER 2018-03-19 12:48 | Day surgery (SDC) | payer MEDICARE ==
[2018-03-19] MEDS ORDERED: Sodium Chloride 0.9% 30 ML ONE (12:57)
[2018-03-19] MEDS ORDERED: Sodium Chloride 0.9% 20 ML ONE (13:06)
[2018-03-19] MEDS ORDERED: Dexamethasone 10 MG, Ondansetron 2MG/ML MDV 10 MG, Admixture Fee 1 EACH in Sodium Chlor... IVPB SCH (13:30)
[2018-03-19] MEDS ORDERED: SODIUM CHLORIDE 0.9% IVPB SCH ×3 (13:30→13:45)
[2018-03-19] MEDS ORDERED: CARBOPLATIN IVPB SCH (13:30)
[2018-03-19] MEDS ORDERED: PEMETREXED IVPB SCH ×2 (13:30→13:45)
[2018-03-19 14:00] VITALS: BP 121/85; TEMP 98.2
== END 2018-03-19 16:17 | disposition home or self-care (01) ==
LOC: ONC/OP 12:48
PROVIDERS: ATTEND Internal Medicine Medical Oncology
DX: Z51.11 Encounter for antineoplastic chemotherapy (principal); C34.11 Malignant neoplasm of upper lobe, right bronchus or lung; Z91.040 Latex allergy status
CPT/HCPCS: 96375; 96411; 96413; A4216; J1100; J2405; J7050; J9045; J9305

== ENCOUNTER 2018-04-08 09:03 | Day surgery (SDC) | payer MEDICARE ==
[2018-04-08] MEDS ORDERED: PEMETREXED IVPB SCH ×2 (09:30→11:00)
[2018-04-08] MEDS ORDERED: CARBOplatin 650 MG in Sodium Chloride 0.9% 250 ML 250 ML IVPB SCH (09:30)
[2018-04-08] MEDS ORDERED: Cyanocobalamin 1000 MCG/ML VIAL SC SCH (09:30)
[2018-04-08] MEDS ORDERED: SODIUM CHLORIDE 0.9% IVPB SCH ×2 (09:30→11:00)
[2018-04-08] MEDS ORDERED: Ondansetron 2MG/ML MDV 10 MG in Sodium Chloride 0.9% 50 ML IVP SCH (09:30)
[2018-04-08] MEDS ORDERED: Dexamethasone 10 MG in Sodium Chloride 0.9% 50 ML IVPB SCH (09:30)
[2018-04-08] MEDS ORDERED: Pembrolizumab 200 MG in Sodium Chloride 0.9% 250 ML 250 ML IV SCH (09:30)
[2018-04-08] MEDS ORDERED: Dexamethasone 10 MG, Ondansetron 2MG/ML MDV 10 MG in Sodium Chloride 0.9% 50 ML IVPB SCH (10:45)
[2018-04-08 17:54] VITALS: BP 114/67; TEMP 98.3
== END 2018-04-08 18:08 | disposition home or self-care (01) ==
LOC: ONC/OP 09:03
PROVIDERS: ATTEND Internal Medicine Medical Oncology
DX: Z51.11 Encounter for antineoplastic chemotherapy (principal); C34.11 Malignant neoplasm of upper lobe, right bronchus or lung; Z91.040 Latex allergy status
CPT/HCPCS: 96375; 96413; 96417; J1100; J2405; J7050; J9045; J9271; J9305

== ENCOUNTER 2018-04-24 08:44 | Outpatient (CLI) | payer MEDICARE ==
--- NOTE | 2018-04-24 10:53 | CT ---
CT CHEST PERFORMED WITH INTRAVENOUS CONTRAST ENHANCEMENT: History: Malignant neoplasm of right upper lobe. Comparison: 01-29-18, CT angio chest 02-17-18 FINDINGS: There are some emphysematous lung changes present. A right upper lobe lung mass is again noted. There is associated pathologic mediastinal lymphadenopat hy. The right upper lobe mass directly abuts the right side mediastinum and directly adjacent to this is what I believe to be a right paratracheal node rather than being an actual portion of the mass. T hese two have always been measured in conjunction and do show some decrease in size. The most recent examination of 02-17-18 showed this to be 3.6 x 5.1 cm and is now 2.9 x 4.3 cm. I actually believe this is a right upper lobe lung mass adjacent to a right paratracheal node with the lymphnode measuring 2 .5 cm in maximum dimension with the lung mass seen approximately 2.7 cm. There is a right sided parae sophageal lymph node. This measures 2.1 cm in maximum dimension as compared to 2.1 cm on the previous exam. There is also some lymphadenopathy along the left anterior margin of the lucinda. This appears stable in size measuring 2.2 cm in maximum dimension. No new adenopathy is demonstrated. No significant axillary adenopathy. Visualized liver parenchyma is normal. Right and left adrenal glands are felt to be within normal lea its. Slight nodularity to the left adrenal is felt to be stable. Visualized portions of the kidneys a re normal. IMPRESSION: 1. Slight reduction in size of the right upper lobe lung mass and adjacent right paratracheal adenopa thy. The paraesophageal node is unchanged in appearance. No other interval change. POS: [facility]
[2018-04-24] MEDS ORDERED: Iopamidol 370 76% 100 ML VIAL ONE (12:52)
== END 2018-04-24 08:45 | disposition home or self-care (01) ==
LOC: BICCT 08:44 → CT 08:45
PROVIDERS: ATTEND Internal Medicine Medical Oncology
DX: C34.11 Malignant neoplasm of upper lobe, right bronchus or lung (principal); R59.0 Localized enlarged lymph nodes
CPT/HCPCS: 71260

== ENCOUNTER 2018-04-29 10:32 | Day surgery (SDC) | payer MEDICARE ==
[2018-04-29] MEDS ORDERED: Sodium Chloride 0.9% 20 ML ONE (10:38)
[2018-04-29 10:54] VITALS: BP 137/74; TEMP 98
[2018-04-29] MEDS ORDERED: Dexamethasone Sod Phosphate 10 MG, Ondansetron 2MG/ML MDV 10 MG in Sodium Chloride 0.9%... IVPB SCH (11:15)
[2018-04-29] MEDS ORDERED: Dexamethasone 10 MG, Ondansetron 2MG/ML MDV 10 MG in Sodium Chloride 0.9% 50 ML IVPB SCH (11:30)
[2018-04-29] MEDS ORDERED: SODIUM CHLORIDE 0.9% IVPB SCH ×2 (12:00)
[2018-04-29] MEDS ORDERED: Pembrolizumab 200 MG in Sodium Chloride 0.9% 250 ML 250 ML IV SCH (12:00)
[2018-04-29] MEDS ORDERED: PEMETREXED IVPB SCH (12:00)
[2018-04-29] MEDS ORDERED: CARBOPLATIN IVPB SCH (12:00)
== END 2018-04-29 14:06 | disposition home or self-care (01) ==
LOC: ONC/OP 10:32
PROVIDERS: ATTEND Internal Medicine Medical Oncology
DX: Z51.11 Encounter for antineoplastic chemotherapy (principal); C34.11 Malignant neoplasm of upper lobe, right bronchus or lung; I10 Essential (primary) hypertension; I25.10 Atherosclerotic heart disease of native coronary artery without angina pectoris; I25.2 Old myocardial infarction; K21.9 Gastro-esophageal reflux disease without esophagitis; Z87.891 Personal history of nicotine dependence; Z79.02 Long term (current) use of antithrombotics/antiplatelets; Z79.899 Other long term (current) drug therapy; Z91.040 Latex allergy status; E03.8 Other specified hypothyroidism
CPT/HCPCS: 36415; 80053; 82248; 83615; 84100; 84443; 84550; 96375; 96411; 96413; 96417; J1100; J2405; J7050; J9045; J9271; J9305

== ENCOUNTER 2018-05-21 13:39 | Day surgery (SDC) | payer MEDICARE ==
[2018-05-21] MEDS ORDERED: Dexamethasone 4 mg/ml Vial SLOW IVP SCH (14:00)
[2018-05-21] MEDS ORDERED: PEMETREXED IVPB SCH ×2 (14:00→14:15)
[2018-05-21] MEDS ORDERED: Ondansetron PF 4 MG/2 ML Vial SLOW IVP SCH (14:00)
[2018-05-21] MEDS ORDERED: SODIUM CHLORIDE 0.9% IVPB SCH ×3 (14:00→14:15)
[2018-05-21] MEDS ORDERED: Folic Acid 1 MG TAB PO SCH (14:15)
[2018-05-21] MEDS ORDERED: CARBOPLATIN IVPB SCH (14:15)
[2018-05-21] MEDS ORDERED: Pembrolizumab 200 MG in Sodium Chloride 0.9% 250 ML 250 ML IV SCH (14:15)
[2018-05-21 14:34] VITALS: BP 99/60; TEMP 98.1
== END 2018-05-21 17:16 | disposition home or self-care (01) ==
LOC: ONC/OP 13:39
PROVIDERS: ATTEND Internal Medicine Medical Oncology
DX: Z51.11 Encounter for antineoplastic chemotherapy (principal); C34.11 Malignant neoplasm of upper lobe, right bronchus or lung; I25.10 Atherosclerotic heart disease of native coronary artery without angina pectoris; I10 Essential (primary) hypertension; I25.2 Old myocardial infarction; K21.9 Gastro-esophageal reflux disease without esophagitis; Z79.02 Long term (current) use of antithrombotics/antiplatelets; Z79.899 Other long term (current) drug therapy; Z87.891 Personal history of nicotine dependence
CPT/HCPCS: 36415; 80053; 82248; 83615; 84100; 84550; 96375; 96413; 96417; J1100; J2405; J7050; J9045; J9271; J9305

== ENCOUNTER 2018-06-17 13:56 | Day surgery (SDC) | payer MEDICARE ==
[2018-06-17] MEDS ORDERED: Sodium Chloride 0.9% 20 ML ONE (14:09)
[2018-06-17 14:18] VITALS: BP 152/89; TEMP 98.6
[2018-06-17] MEDS ORDERED: SODIUM CHLORIDE 0.9% IVPB SCH ×3 (14:30→15:45)
[2018-06-17] MEDS ORDERED: Cyanocobalamin 1000 MCG/ML VIAL SC SCH (14:30)
[2018-06-17] MEDS ORDERED: Folic Acid 1 MG TAB PO SCH (14:30)
[2018-06-17] MEDS ORDERED: PEMETREXED IVPB SCH ×2 (14:30→15:45)
[2018-06-17] MEDS ORDERED: Dexamethasone 10 MG, Ondansetron 2MG/ML MDV 10 MG in Sodium Chloride 0.9% 50 ML IVPB SCH ×2 (14:30→16:30)
[2018-06-17] MEDS ORDERED: CARBOPLATIN IVPB SCH (14:30)
[2018-06-17] MEDS ORDERED: Pembrolizumab 200 MG in Sodium Chloride 0.9% 250 ML 250 ML IV SCH (14:30)
== END 2018-06-17 19:24 | disposition home or self-care (01) ==
LOC: ONC/OP 13:56
PROVIDERS: ATTEND Internal Medicine Medical Oncology
DX: Z51.11 Encounter for antineoplastic chemotherapy (principal); C34.11 Malignant neoplasm of upper lobe, right bronchus or lung; I25.10 Atherosclerotic heart disease of native coronary artery without angina pectoris; I25.2 Old myocardial infarction; K21.9 Gastro-esophageal reflux disease without esophagitis; I10 Essential (primary) hypertension; Z91.040 Latex allergy status; Z79.02 Long term (current) use of antithrombotics/antiplatelets; Z79.899 Other long term (current) drug therapy; Z87.891 Personal history of nicotine dependence
CPT/HCPCS: 36415; 80053; 82248; 83615; 84100; 84443; 84550; 96367; 96372; 96411; 96413; 96417; J1100; J2405; J3420; J7050; J9045; J9271; J9305

== ENCOUNTER 2018-07-19 14:31 | Day surgery (SDC) | payer MEDICARE ==
[2018-07-19] MEDS ORDERED: Pembrolizumab 200 MG in Sodium Chloride 0.9% 250 ML 250 ML IV SCH (14:45)
[2018-07-19 14:55] VITALS: BP 102/66; TEMP 98.5
== END 2018-07-19 16:00 | disposition home or self-care (01) ==
LOC: ONC/OP 14:31
PROVIDERS: ATTEND Internal Medicine Medical Oncology
DX: Z51.11 Encounter for antineoplastic chemotherapy (principal); C34.11 Malignant neoplasm of upper lobe, right bronchus or lung; Z91.040 Latex allergy status
CPT/HCPCS: 96413; J7050; J9271

== ENCOUNTER 2018-07-28 17:28 | Observation (INO) | payer MEDICARE ==
[2018-07-28] MEDS ORDERED: Enoxaparin Sodium 100 MG/ML SYRINGE ONE (18:51)
[2018-07-28 21:04] VITALS: BMI 23.3
[2018-07-28 22:04] LABS: Troponin I 0.207 ng/mL (< 0.028)
[2018-07-29 01:02] LABS: Troponin I 0.146 ng/mL (< 0.028)
[2018-07-29] MEDS ORDERED: Acetaminophen 325 MG TAB PO PRN (03:16)
[2018-07-29] MEDS ORDERED: Bisacodyl 10 MG SUPP PR PRN (03:16)
[2018-07-29] MEDS ORDERED: Ondansetron PF 4 MG/2 ML Vial IVP PRN (03:16)
[2018-07-29] MEDS ORDERED: Senokot S 8.6-50 MG TAB PO PRN (03:16)
[2018-07-29] MEDS ORDERED: Bisacodyl 5 MG TAB PO PRN (03:16)
[2018-07-29] MEDS ORDERED: Zolpidem Tartrate 5 MG TAB PO PRN (03:16)
[2018-07-29] MEDS ORDERED: HYDROcodone/Acetaminophen 10/325 mg Tablet PO PRN (03:16)
[2018-07-29] MEDS ORDERED: Ondansetron ODT 4 MG TAB PO PRN (03:16)
[2018-07-29] MEDS ORDERED: Calcium Carbonate 500 MG ChewTAB PO PRN (03:16)
[2018-07-29] MEDS ORDERED: Meclizine HCl 25 MG TAB PO PRN (03:20)
[2018-07-29] MEDS ORDERED: Prochlorperazine Maleate 5 MG TAB PO PRN (03:20)
[2018-07-29 04:43] LABS: #Lymphocytes 1.9 thou/uL (1.20-3.40); #Monocytes 0.8 thou/uL (0.11-0.59); %Basophils 0.4 % (0.0-1.0); %Eosinophils 0.4 % (0.0-10.0); %Lymphocytes 27.9 % (21.0-51.0); %Monocytes 12.2 % (0.0-10.0); %Neutrophils 59.1 % (42.0-75.0); Hemoglobin 11.5 g/dL (14.0-18.0); Mean Corpuscular HGB CONC 34.1 g/dL (32.0-36.0); Mean Corpuscular Hemoglobin 32.9 pg (27.0-31.0); Mean Corpuscular Volume 96.4 fL (78.0-98.0); Mean Platelet Volume 7.7 fL (7.4-10.4); Platelet Count 249 thou/uL (130-400); RBC Distribution Width 13.7 % (11.5-14.5); White Blood Cell (WBC) Count 6.8 thou/uL (4.8-10.8)
[2018-07-29 05:11] LABS: Anion Gap 16 mmol/L (10-20); BUN (Urea Nitrogen) 10 mg/dL (8.4-25.7); Calc. Creatinine Clearance 101 mL/min (70-130); Calcium 9.3 mg/dL (7.8-10.44); Carbon Dioxide 19 mmol/L (23-31); Chloride 105 mmol/L (98-107); Cholesterol 167 mg/dl (< 200 Desired); Estimated GFR-MDRD Greater than 90; Glucose 114 mg/dL (80-115); HDL Cholesterol 55 mg/dL (>60 Neg Risk); LDL Cholesterol, Calculated 90 mg/dL; Potassium 3.4 mmol/L (3.5-5.1); Sodium 137 mmol/L (136-145); Triglycerides 112 mg/dL (Less than 150)
[2018-07-29] MEDS ORDERED: Dexamethasone 4 MG TAB PO SCH (09:00)
[2018-07-29] MEDS ORDERED: Aspirin 325 mg Enteric Coated Tablet PO SCH ×2 (09:23→10:00)
[2018-07-29] MEDS: Enoxaparin Sodium 80 MG/0.8 ML SYRINGE SC SCH ×2 (10:10→20:16)
[2018-07-29] MEDS: Lisinopril 5 MG TAB PO SCH (10:13)
[2018-07-29] MEDS: Famotidine/PF 20 mg/2ml Vial SLOW IVP SCH ×2 (10:13→20:17)
[2018-07-29] MEDS: Atorvastatin Calcium 40 MG TAB PO SCH (10:13)
[2018-07-29] MEDS: Carvedilol 3.125 MG TAB PO SCH ×2 (10:13→20:15)
[2018-07-29] MEDS: Famotidine 20 MG TAB PO SCH ×2 (10:13→20:15)
--- NOTE | 2018-07-29 13:19 | CT ---
CT ANGIOGRAM THORAX WITH IV CONTRAST AND 3D RECONSTRUCTIONS: DATE: 07/29/2018. HISTORY: Elevated D-dimer, chest pain. COMPARISON: Prior study on 02/17/2018 as well as study on 04/24/2018. FINDINGS: Spiculated right suprahilar mass is again seen measuring 2.9 cm x 1.9 cm and previously measured 3.6 cm x 2.7 cm. There has been interval decrease in size of the necrotic lymph node seen in the right p aratracheal region measuring 1.3 cm in short axis dimension and on the prior exam measured approximat lisa 2.6 cm in short axis dimension. There is a posterior mediastinal lymph node seen just above the level of the lucinda adjacent to the esophagus which has decreased in size previously measuring 2.1 cm , and this now measures 1 cm in maximal dimension. A few prevascular space lymph nodes are again see n with conglomeration of lymph nodes measuring 2.5 cm in greatest dimension and previously measured 2 .3 cm. Prominent calcified right hilar lymph node is again seen as well as calcified subcarinal lymph node p resent. No filling defects are seen in the pulmonary arteries to suggest a pulmonary embolus. Vascular calcification is seen in the thoracic aorta, but the thoracic aorta is normal in caliber wit hout evidence of an aortic dissection. There is a low-density area present within the right atrium, but this is probably attributable to mixing artifact from unopacified contrast from the IVC. Minimal vascular calcification in the coronary arteries. Again noted is emphysematous changes within the lungs bilaterally with dependent atelectasis bilatera lly. A few tiny less than 4 mm pleural-based pulmonary nodules seen adjacent to the minor fissure. Calcified granulomata are seen in the spleen. IMPRESSION: 1. No CT evidence of a pulmonary embolus. 2. Area of diminished attenuation within the right atrium likely related to mixing artifact from le[place] pacified blood from the IVC. 3. Right suprahilar spiculated lung mass smaller in size compared to the prior studies, and there fox s also been interval decrease in size of the adjacent right paratracheal lymph node as well as interv al decrease in size of the posterior mediastinal lymph node at the level of the lucinda. Overall stab le prevascular space lymph nodes are present. 4. Chronic obstructive pulmonary disease. 5. Tiny pleural-based nodular densities along the minor fissure probably related to minimal nodular pleural thickening. POS: [facility]
--- NOTE | 2018-07-29 15:55 | PDOC.PN ---
- Subjective Encounter Start Date: 07/29/18 Encounter Start Time: 08:30 Subjective: Patient resting comfortably in bed. Denies any complaints. No chest pain. -: Initial pain in the upper abdomen, resolved with meds given in the ED. -: No SOB. Denies cough or hemoptysis. No lower leg pain or swelling. Patient eating/drinking without difficulties. No headaches or dizziness. Urinating and moving bowels as normal. Back to baseline as per patient. No complaints at present time. - Objective Resuscitation Status - Order Detail: 07/29/18 03:16 Resuscitation Status Routine Resuscitation Status: FULL: Full Resuscitation Vital Signs & Weight: Vital Signs (12 hours) Temp Pulse Resp BP Pulse Ox 07/29/18 11:21 98 F 74 16 105/62 99 07/29/18 10:13 60 07/29/18 07:41 98 F 60 16 115/69 97 07/29/18 04:15 98.4 F 79 16 98/61 98 Weight Weight 158 lb I&O: 07/28/18 07/29/18 07/30/18 06:59 06:59 06:59 Intake Total 240 480 Balance 240 480 Result Diagrams: 07/29/18 04:18 07/29/18 04:18 Phys Exam - Physical Examination Constitutional: NAD HEENT: PERRLA, oral pharynx no lesions Neck: supple, full ROM Respiratory: no wheezing Cardiovascular: RRR Gastrointestinal: soft, non-tender Musculoskeletal: no edema, pulses present Neurological: non-focal, normal sensation, moves all 4 limbs Psychiatric: normal affect, A&O x 3 Skin: no rash Dx/Plan - Plan cont current plan of care Awaiting Echo. Under Dr. King. -: CTPA negative for PE. -: Awaiting Oncology review. * .
--- NOTE | 2018-07-29 22:45 | CON ---
DATE OF CONSULTATION: REASON FOR CONSULT: Lung cancer. HISTORY OF PRESENT ILLNESS: Mr. 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 He had multiple brain lesions at time of diagnosis. He underwent whole-brain radiation, which was completed in January 2018. He has been getting treatment with carboplatin, Alimta, and Keytruda. He presented to the emergency room today after a bout of chest pain and nausea. He had a mildly elevated troponin and was admitted for further workup. He had a CT angio of the chest to rule out PE, it was negative for pulmonary embolism. It did show decreased size of his right hilar mass, now measuring 2.9 x 1.9, whereas previously 3.6 x 2.7. He had interval decrease in his lymphadenopathy. The patient denies any chest pain since arrival. He has no shortness of breath. No nausea, vomiting, diarrhea. No abdominal discomfort. PAST MEDICAL HISTORY: 1. Stage IV lung cancer. 2. Coronary artery disease. 3. Hypertension. 4. History of CT. 5. Acid reflex. PAST SURGICAL HISTORY: 1. Cardiac surgery. 2. Lung biopsy. ALLERGIES: NO KNOWN DRUG ALLERGIES. HOME MEDICATIONS: 1. Atorvastatin 40 mg daily. 2. Coreg 3.125 mg b.i.d. 3. Plavix 75 mg daily. 4. Lisinopril 10 mg daily. 5. Tramadol p.r.n. FAMILY HISTORY: Noncontributory. SOCIAL HISTORY: , has four children. Lives with his spouse. No alcohol, tobacco, or illicit drug use. REVIEW OF SYSTEMS: A 10-point review of systems is negative, except for noted in HPI. PHYSICAL EXAMINATION: VITAL SIGNS: Temperature is 98.0, pulse is 74, respiratory rate 16, BP is 105/62. GENERAL: Well-developed, well-nourished male, in no acute distress. HEENT: Normocephalic and atraumatic. Pupils equal and reactive to light. NECK: Supple. CV: Regular rate and rhythm. LUNGS: Clear. ABDOMEN: Soft, nontender. Bowel sounds are positive. EXTREMITIES: No clubbing, cyanosis, or edema. SKIN: No rash. HEMATOLOGICAL: No petechiae or purpura. NEUROLOGIC: Nonfocal. PSYCH: The patient is alert, oriented and appropriate. PERTINENT LABORATORY DATA AND X-RAYS: Current WBC is 6.8, hemoglobin 11.5, hematocrit 33.7, platelet count 249,000, 59% neutrophils, 28% lymphocytes. Sodium is 137, potassium 3.4, chloride 105, CO2 is 19, BUN is 10, creatinine 0.77, calcium 9.3. Troponin is 0.146. Radiology per HPI. ASSESSMENT: 1. Stage IV lung cancer, currently undergoing treatment with chemotherapy and immunotherapy. 2. Nonspecific chest pain. DISCUSSION: The patient has no evidence of pulmonary embolism. He does have evidence of good response to treatment. His next chemotherapy is scheduled for August 08 at 1 p.m. and he will see Dr. Virgen for followup. Thank you for the consult. We will sign off. Call for any needs. Job ID: [id number]
[2018-07-30] MEDS ORDERED: Potassium Chloride 20 MEQ TAB PO SCH (07:45)
[2018-07-30] MEDS ORDERED: Aspirin 325 mg Enteric Coated Tablet PO SCH (09:00)
--- NOTE | 2018-07-30 09:27 | CON ---
DATE OF CONSULTATION: HISTORY OF PRESENT ILLNESS: The patient is a 63-year-old gentleman, who presents with left upper abdominal and lower chest discomfort. The patient has a previous history of coronary artery disease, status post PTCA and stent placed in the left circumflex artery. The patient has been on medical therapy. He was in the hospital several months ago and underwent a stress test that revealed normal left systolic function with no evidence of ischemia. The patient also has a history of lung carcinoma. He is undergoing chemotherapy. The patient was in usual state of health when he again developed left upper abdominal and lower chest discomfort. He states he went to the emergency room and received aspirin, GI cocktail, and nitroglycerin with resolution of his chest discomfort. The patient reports no longer having chest discomfort. PAST MEDICAL HISTORY: 1. Coronary artery disease. 2. History of myocardial infarction. 3. Lung carcinoma with brain metastasis. 4. Hypertension. PAST SURGICAL HISTORY: SOCIAL HISTORY: The patient continues to smoke. ALLERGIES: NO KNOWN DRUG ALLERGIES. MEDICATIONS: 1. Plavix 75 daily. 2. Lipitor 40 daily. 3. Coreg 3.125 daily. 4. Lisinopril 10 daily. 5. Tramadol 50 at bedtime. REVIEW OF SYSTEMS: Ten point systems otherwise unremarkable. PHYSICAL EXAMINATION: GENERAL: Ill-appearing gentleman, in no acute distress. VITAL SIGNS: Blood pressure 115/69. NECK: No jugular distention. LUNGS: Coarse breath sounds bilaterally. HEART: Regular rate and rhythm. Normal S1, S2. ABDOMEN: Nondistended. EXTREMITIES: Showed no edema. VASCULAR: Radial pulses are 2+. LABORATORY DATA: Sodium 137, potassium 3.4, chloride 105, bicarbonate 19, BUN 10, creatinine 0.77. His glucose 114, white blood cell count 6.8, hemoglobin 11.5, hematocrit 33.7, platelets are 249. Troponin was 0.3. His EKG revealed normal sinus rhythm with a normal ECG. IMPRESSION: 1. Unstable angina/non-Q-wave myocardial infarction. 2. Metastatic lung carcinoma. 3. History of coronary artery disease, status post PTCA and stent placement. 4. Hypertension. 5. Tobacco abuse. This gentleman presents with abdominal/chest discomfort. This patient has an elevated troponin level. The patient being treated with Lovenox. We will add aspirin. The patient is on a low-dose beta-connie. I discussed the option of undergoing invasive evaluation. The patient adamantly wants to be treated only medically. We will check a D-dimer to make sure there is no evidence of a pulmonary embolus. We will follow this patient with you through his hospitalization. Job ID: [id number] [facility]
[2018-07-30] MEDS: Famotidine 20 MG TAB PO SCH (09:28)
[2018-07-30] MEDS: Atorvastatin Calcium 40 MG TAB PO SCH (09:28)
[2018-07-30] MEDS: Lisinopril 5 MG TAB PO SCH (09:28)
[2018-07-30] MEDS: Carvedilol 3.125 MG TAB PO SCH (09:28)
[2018-07-30] MEDS: Enoxaparin Sodium 80 MG/0.8 ML SYRINGE SC SCH (09:29)
[2018-07-30] MEDS: Famotidine/PF 20 mg/2ml Vial SLOW IVP SCH (09:29)
[2018-07-30 10:09] LABS: Hemoglobin 12.1 g/dL (14.0-18.0); Platelet Count 219 thou/uL (130-400)
[2018-07-30 10:50] LABS: Calc. Creatinine Clearance 97 mL/min (70-130); Estimated GFR-MDRD Greater than 90
[2018-07-30 12:20] VITALS: BP 97/75; TEMP 98.3
--- NOTE | 2018-07-30 18:04 | HP ---
CHIEF COMPLAINT: Epigastric pain. HISTORY OF PRESENT ILLNESS AND REVIEW OF SYSTEMS: This is a very pleasant 63-year-old man, who presented to the ED after being transferred from [place] with complaints of epigastric pain radiating up into his chest that began at 9:00 a.m. on 07/28/2018. The patient reports vomiting once. He underwent an initial troponin, that was negative. Due to concern from daughter, troponin was repeated and was raised at 0.389. Subsequent troponin was lower. There were transient EKG changes present, felt to be nonspecific, but subsequent EKG showed normal sinus rhythm. The patient, therefore, admitted for chest pain rule out. The patient has a background history of metastatic brain cancer and undergoing chemotherapy. He recently completed radiation therapy for brain mets. He had already been given aspirin prior to transfer. He has known cardiac disease. The patient states after given GI cocktail, he had complete improvement in symptoms. The patient denies having any associated shortness of breath or diaphoresis. Denies having any pain radiating down his arms or up his neck. No further episodes of vomiting. No further abdominal pain. No recent changes with his bowels. Denies having any urinary symptoms. No headaches or dizziness. Denies having any fevers, chills, or sweats. All other review of systems are negative. PAST MEDICAL HISTORY: 1. Metastatic lung cancer to the brain. 2. Coronary artery disease. 3. OR, treated with stent. 4. Hypothyroidism. 5. Hyperlipidemia. 6. Hypertension. 7. Radiation therapy for brain METS. 8. Peripheral vascular disease. PAST SURGICAL HISTORY: 1. Orthopedic surgery of bilateral feet. 2. Cardiac stent placement. SOCIAL HISTORY: The patient is a former smoker, quit in the last year, approximately 2-3 months ago. No heavy alcohol use or illicit drug use. ALLERGIES: NO KNOWN DRUG ALLERGIES. CURRENT MEDICATIONS: 1. Carvedilol 3.125 mg p.o. twice daily. 2. Lipitor 40 mg p.o. daily. 3. Zofran ODT every 6 hours p.r.n. 4. Levothyroxine 75 mcg p.o. daily. 5. Compazine 10 mg q.6 h. p.r.n. 6. Meclizine 25 mg. 7. Pantoprazole 40 mg daily. 8. Dexamethasone 4 mg b.i.d. 9. Lisinopril 5 mg daily. PHYSICAL EXAMINATION: GENERAL: The patient appears thin, but well developed and in no acute distress. VITAL SIGNS: Temperature 98.9, pulse is 58, respirations 16, blood pressure 128/74, and O2 saturation 100% on room air. HEENT: Normocephalic and atraumatic. Pupils are equal, round, reactive to light. Sclerae are anicteric. Oropharynx is clear. NECK: Supple. No lymphadenopathy. LUNGS: Clear to auscultation bilaterally. ABDOMEN: Soft, nontender, and nondistended. Normoactive bowel sounds present. EXTREMITIES: No clubbing, cyanosis, or edema. NEUROLOGIC: Alert and oriented x3. SKIN: Without rash or jaundice. LABORATORY DATA: Troponin 0.34, subsequent 0.207, 0.146. IMPRESSION AND PLAN: The patient is being admitted to the hospital for chest pain rule out and management of the following conditions: 1. Atypical chest pain. Echo. Cardiology consult requested. 2. Metastatic lung cancer to the brain. Oncology consultation requested and Palliative Care consultation also requested. 3. Pain, resolved. 4. Gastrointestinal prophylaxis. 5. Venous thromboembolism prophylaxis with mechanical sequential compression devices. 6. Diet, heart healthy. 7. Activity as tolerated. The patient's case was discussed with Dr. Gan, who agrees with plan of care as described above. Job ID: [id number]
--- NOTE | 2018-07-30 21:45 | DIS ---
DATE OF ADMISSION: 07/28/2018 DATE OF DISCHARGE: 07/30/2018 CONSULTING PHYSICIANS: 1. Dr. Messina of Cardiology. 2. Joy Fiore APRN of Oncology. DISCHARGE DIAGNOSES: 1. Gastroesophageal reflux disease. 2. Atypical chest pain. 3. Unstable angina/non-Q-wave myocardial infarction. 4. Metastatic lung carcinoma. 5. History of coronary artery disease, status post percutaneous transluminal coronary angioplasty and stent placement. 6. Hypertension. 7. Tobacco abuse. HOSPITAL COURSE AND REVIEW OF SYSTEMS: Mr. Chi is a very pleasant 63-year-old man, who presented with complaints of epigastric abdominal discomfort, that came suddenly on the morning of July 28, 2018, at approximately 9 a.m. He vomited once. States he felt the discomfort choke up his chest. He was transferred from [place], and upon arriving to the ED, was given a GI cocktail with immediate relief. He has had no further symptoms since then throughout his admission. Initial troponin was negative, but due to concern for adult trop, was repeated and came back raised at 0.389. Subsequent troponins were normal. Given transient EKG changes, felt to be nonspecific, but resolved to normal, he was admitted for further workup. He is known to have metastatic lung carcinoma to the brain. He recently completed chemoradiation therapy to the brain and has been undergoing chemotherapy. He was seen by Oncology during his stay. He was also seen by Dr. Messina of Cardiology. Dr. Messina had requested a D-dimer with workup for PE including a CTPA. A CTPA was done showing no evidence of pulmonary embolism; however, he was noted to have good response to treatment with a notable interval decrease in lymphadenopathy as well as a decrease in the size of the right hilar mass. Per Oncology, he is scheduled to undergo his next treatment on August 08 at 1 p.m., and will be seeing Dr. Melo for followup. He was cleared from their standpoint. Dr. Messina had discussed with the patient recommendations for catheterization; however, the patient refused and insisted on medical treatment only. Given negative workup for PE and the fact that he had continued to be asymptomatic, he was cleared from cardiac standpoint for discharge as well with plans to follow up as an outpatient. The patient's case was discussed with Dr. Gan on day of discharge, who agreed given his metastatic cancer that conservative management would be the best option for the patient and felt he was medically fit for discharge home. On the day of discharge, the patient states he feels very well. He continues to be pain free and without any complaints. He has been eating and drinking without any nausea or vomiting. Tolerating all oral intake. Denies having any headaches or dizziness. No vision changes. He has not had any cough, hemoptysis, or shortness of breath. Denies any chest pain or palpitations. No abdominal pain or cramping. Moving his bowels as normal. No urinary symptoms. He has remained afebrile. All other review of systems is negative. PHYSICAL EXAMINATION: VITAL SIGNS: Temperature 98.3, pulse 84, respirations 16, O2 saturation 100% on room air, blood pressure 97/75. HEENT: Normocephalic and atraumatic. Pupils are equal, round, and reactive to light. Sclerae are anicteric. Oropharynx is clear. NECK: Supple with no lymphadenopathy. LUNGS: Clear to auscultation bilaterally without wheezes, rales, or rhonchi. CARDIAC: Regular rate and rhythm without audible murmurs, rubs, or gallops. ABDOMEN: Soft, nontender, and nondistended. Normoactive bowel sounds. EXTREMITIES: No clubbing, cyanosis, or edema. NEUROLOGIC: Alert and oriented x3. SKIN: Without rash or jaundice. LABORATORY DATA: White blood count 6.8, hemoglobin 12.1, hematocrit 35.9. Electrolytes, unremarkable. Creatinine 0.78, eGFR greater than 90. IMAGING DATA: Chest x-ray, 07/28/2018. No acute findings. Calcified granuloma in the right perihilar region and right lung base appeared stable. Chest CTA, 07/29/2018. No CT evidence of PE. Area of diminished attenuation within the right atrium, likely related to artifact from opacified blood from IVC. Right suprahilar spiculated lung mass appeared smaller in size compared to prior studies. Interval decrease in size of adjacent right peritracheal lymph node as well as interval decrease in size of the posterior mediastinal lymph node at the level of the lucinda. Overall, stable prevascular space lymph nodes present. COPD changes noted. Tiny pleural-based nodular densities along the minor fissure, likely related to minimal nodule or pleural thickening. PROCEDURES PERFORMED: None. DISCHARGE MEDICATIONS: The patient was advised to resume all medications includin. Coreg. 2. Statin. 3. Lisinopril. 4. He was given a prescription to continue aspirin 325 mg daily. CONDITION: Stable at discharge. DIET: Heart-healthy. ACTIVITY: As tolerated. FOLLOWUP: The patient will follow up as scheduled with Dr. Melo. He will also follow up as an outpatient with Dr. Messina for continued conservative cardiac management. DISPOSITION: Cleared for discharge home on July 30, 2018. Discussed with Dr. Gan, who agrees with plan of care as described above. Job ID: [id number]
--- NOTE | 2018-08-03 13:28 | EKG ---
Test Reason : ELEVATED TROP Blood Pressure : / mmHG Vent. Rate : 063 BPM Atrial Rate : 063 BPM P-R Int : 130 ms QRS Dur : 086 ms QT Int : 422 ms P-R-T Axes : 057 000 049 degrees QTc Int : 431 ms Normal sinus rhythm Normal ECG Confirmed by DON DHALIWAL ([id number]), tape editor RENNY BURROUGHS ([id number]) on 08/03/2018 1:27:38 PM Referred By: Confirmed By:DON DHALIWAL
== END 2018-07-30 12:26 | disposition home or self-care (01) ==
LOC: ERS 17:28 → ERHOLD 19:00 → 2SW 20:17
PROVIDERS: ADMIT Family Medicine; ATTEND Family Medicine
DX: R07.89 Other chest pain (principal); K21.9 Gastro-esophageal reflux disease without esophagitis; I25.10 Atherosclerotic heart disease of native coronary artery without angina pectoris; I10 Essential (primary) hypertension; C34.11 Malignant neoplasm of upper lobe, right bronchus or lung; C79.31 Secondary malignant neoplasm of brain; I25.2 Old myocardial infarction; E03.9 Hypothyroidism, unspecified; E78.5 Hyperlipidemia, unspecified; F17.210 Nicotine dependence, cigarettes, uncomplicated; Z79.02 Long term (current) use of antithrombotics/antiplatelets; Z79.899 Other long term (current) drug therapy; Z91.040 Latex allergy status; Z95.5 Presence of coronary angioplasty implant and graft
CPT/HCPCS: 71275; 80048; 80061; 82565; 84484 ×2; 85014; 85018; 85025; 85049; 85379; 93005; 93306; 94760; 96360; 96372 ×3; 99285; G0378 ×2; 36415; J1650

== ENCOUNTER 2018-08-08 14:05 | Day surgery (SDC) | payer MEDICARE ==
[2018-08-08] MEDS ORDERED: Sodium Chloride 0.9% 20 ML ONE (14:12)
[2018-08-08] MEDS ORDERED: Dexamethasone 10 MG/ML VIAL SLOW IVP SCH (14:30)
[2018-08-08] MEDS ORDERED: Cyanocobalamin 1000 MCG/ML VIAL SC SCH (14:30)
[2018-08-08] MEDS ORDERED: Ondansetron PF 4 MG/2 ML Vial SLOW IVP SCH (14:30)
[2018-08-08] MEDS ORDERED: SODIUM CHLORIDE 0.9% IVPB SCH (15:00)
[2018-08-08] MEDS ORDERED: Pembrolizumab 200 MG in Sodium Chloride 0.9% 250 ML 250 ML IV SCH (15:00)
[2018-08-08] MEDS ORDERED: PEMETREXED IVPB SCH (15:00)
== END 2018-08-08 17:15 | disposition home or self-care (01) ==
LOC: ONC/OP 14:05
PROVIDERS: ATTEND Internal Medicine Medical Oncology
DX: Z51.12 Encounter for antineoplastic immunotherapy (principal); C34.11 Malignant neoplasm of upper lobe, right bronchus or lung; I25.10 Atherosclerotic heart disease of native coronary artery without angina pectoris; I25.2 Old myocardial infarction; I10 Essential (primary) hypertension; K21.9 Gastro-esophageal reflux disease without esophagitis; Z87.891 Personal history of nicotine dependence; Z79.899 Other long term (current) drug therapy; Z91.040 Latex allergy status
CPT/HCPCS: 80053; 82248; 83615; 84100; 84443; 84550; 96372; 96375; 96411; 96413; J1100; J2405; J3420; J7050; J9271; J9305

== ENCOUNTER 2018-08-29 01:14 | Day surgery (SDC) | payer MEDICARE ==
[2018-08-29] MEDS ORDERED: Dexamethasone 10 MG/ML VIAL SLOW IVP SCH (06:00)
[2018-08-29] MEDS ORDERED: PEMETREXED IVPB SCH (06:00)
[2018-08-29] MEDS ORDERED: Pembrolizumab 200 MG in Sodium Chloride 0.9% 250 ML 250 ML IV SCH (06:00)
[2018-08-29] MEDS ORDERED: Ondansetron PF 4 MG/2 ML Vial SLOW IVP SCH (06:00)
[2018-08-29] MEDS ORDERED: SODIUM CHLORIDE 0.9% IVPB SCH (06:00)
[2018-08-29] MEDS ORDERED: Ondansetron 2MG/ML MDV 10 MG, Dexamethasone Sod Phosphate 10 MG in Sodium Chloride 0.9%... IVPB SCH (07:00)
[2018-08-29] MEDS ORDERED: Multivit, Therapeutic 1 TAB PO SCH (09:00)
[2018-08-29] MEDS ORDERED: Folic Acid 1 MG TAB PO SCH (09:00)
[2018-08-29] MEDS ORDERED: Sodium Chloride 0.9% 20 ML ONE (13:55)
[2018-08-29 14:06] VITALS: BP 119/57; TEMP 98.4
== END 2018-08-29 16:06 | disposition home or self-care (01) ==
LOC: ONC/OP 01:14
PROVIDERS: ATTEND Internal Medicine Medical Oncology
DX: Z51.12 Encounter for antineoplastic immunotherapy (principal); C34.11 Malignant neoplasm of upper lobe, right bronchus or lung; C79.31 Secondary malignant neoplasm of brain; I25.10 Atherosclerotic heart disease of native coronary artery without angina pectoris; I10 Essential (primary) hypertension; I25.2 Old myocardial infarction; K21.9 Gastro-esophageal reflux disease without esophagitis; Z87.891 Personal history of nicotine dependence; Z91.040 Latex allergy status
CPT/HCPCS: 36415; 80053; 82248; 83615; 84100; 84550; 96375; 96411; 96413; J1100; J2405; J7050; J9271; J9305

== ENCOUNTER 2018-09-26 14:15 | Day surgery (SDC) | payer MEDICARE ==
[~2018-09-26 14:15] MED LIST changes: +Dexamethasone 10 MG/ML VIAL SLOW IVP SCH; +Folic Acid 1 MG TAB PO SCH; +Ondansetron 2MG/ML MDV 10 MG, Dexamethasone Sod Phosphate 10 MG in Sodium Chloride 0.9%... IVPB SCH; +PEMETREXED IVPB SCH; +Pembrolizumab 200 MG in Sodium Chloride 0.9% 250 ML 250 ML IV SCH; -Regadenoson 0.4 MG/5 ML SYRINGE ONE; +SODIUM CHLORIDE 0.9% IVPB SCH
[2018-09-26 14:40] VITALS: BP 106/68; TEMP 97.7
== END 2018-09-26 16:40 | disposition home or self-care (01) ==
LOC: ONC/OP 14:15
PROVIDERS: ATTEND Internal Medicine Medical Oncology
DX: Z51.11 Encounter for antineoplastic chemotherapy (principal); C34.11 Malignant neoplasm of upper lobe, right bronchus or lung; I25.10 Atherosclerotic heart disease of native coronary artery without angina pectoris; I10 Essential (primary) hypertension; I25.2 Old myocardial infarction; K21.9 Gastro-esophageal reflux disease without esophagitis; Z87.891 Personal history of nicotine dependence; Z92.3 Personal history of irradiation
CPT/HCPCS: 96375; 96411; 96413; J1100; J2405; J7050; J9271; J9305

== ENCOUNTER 2018-10-24 14:06 | Day surgery (SDC) | payer MEDICARE ==
[~2018-10-24 14:06] MED LIST changes: -Dexamethasone 10 MG/ML VIAL SLOW IVP SCH
[2018-10-24] MEDS ORDERED: Sodium Chloride 0.9% 20 ML ONE (14:07)
[2018-10-24 14:42] VITALS: BP 107/74; TEMP 98.2
[2018-10-24] MEDS ORDERED: Cyanocobalamin 1000 MCG/ML VIAL SC SCH (15:00)
== END 2018-10-24 15:37 | disposition home or self-care (01) ==
LOC: ONC/OP 14:06
PROVIDERS: ATTEND Internal Medicine Medical Oncology
DX: Z51.11 Encounter for antineoplastic chemotherapy (principal); C34.11 Malignant neoplasm of upper lobe, right bronchus or lung; Z91.040 Latex allergy status
CPT/HCPCS: 36415; 80053; 82248; 83615; 84100; 84550; 96372; 96375; 96411; 96413; J1100; J2405; J3420; J3490; J7050; J9271; J9305

== ENCOUNTER 2018-11-21 13:44 | Day surgery (SDC) | payer MEDICARE ==
[~2018-11-21 13:44] MED LIST changes: +Cyanocobalamin 1000 MCG/ML VIAL SC SCH
[2018-11-21] MEDS ORDERED: SODIUM CHLORIDE 0.9% IVPB SCH (15:11)
[2018-11-21] MEDS ORDERED: PEMETREXED IVPB SCH (15:11)
[2018-11-21 16:07] VITALS: BP 92/57; TEMP 97.7
== END 2018-11-21 16:10 | disposition home or self-care (01) ==
LOC: ONC/OP 13:44
PROVIDERS: ATTEND Internal Medicine Medical Oncology
DX: Z51.11 Encounter for antineoplastic chemotherapy (principal); C34.11 Malignant neoplasm of upper lobe, right bronchus or lung; Z91.040 Latex allergy status
CPT/HCPCS: 36415; 80053; 82248; 83615; 84100; 84550; 96375; 96411; 96413; J1100; J2405; J3490; J7050; J9271; J9305

== ENCOUNTER 2018-12-19 14:08 | Day surgery (SDC) | payer MEDICARE ==
[2018-12-19] MEDS ORDERED: Sodium Chloride 0.9% 20 ML ONE ×2 (14:15→14:41)
[2018-12-19 14:57] VITALS: BP 125/55; TEMP 97.7
== END 2018-12-19 16:28 | disposition home or self-care (01) ==
LOC: ONC/OP 14:08
PROVIDERS: ATTEND Internal Medicine Medical Oncology
DX: Z51.11 Encounter for antineoplastic chemotherapy (principal); C34.11 Malignant neoplasm of upper lobe, right bronchus or lung
CPT/HCPCS: 36415; 80053; 82248; 83615; 84100; 84550; 96411; 96413; J1100; J2405; J3490; J7050; J9271; J9305

== ENCOUNTER 2019-01-17 10:19 | Day surgery (SDC) | payer MEDICARE ==
[2019-01-17] MEDS ORDERED: Sodium Chloride 0.9% 20 ML ONE (10:59)
[2019-01-17 11:25] LABS: #Eosinphils 0.2 thou/uL (0.0-0.7); #Lymphocytes 1.3 thou/uL (1.20-3.40); #Monocytes 0.3 thou/uL (0.11-0.59); #Neutrophils 1.9 thou/uL (1.40-6.50); %Basophils 0.3 % (0.0-1.0); %Eosinophils 6.3 % (0.0-10.0); %Lymphocytes 34.8 % (21.0-51.0); %Monocytes 7.4 % (0.0-10.0); %Neutrophils 51.2 % (42.0-75.0); Hemoglobin 12.2 g/dL (14.0-18.0); Mean Corpuscular HGB CONC 32.7 g/dL (32.0-36.0); Mean Corpuscular Hemoglobin 29.4 pg (27.0-31.0); Mean Platelet Volume 7.9 fL (7.4-10.4); Platelet Count 246 thou/uL (130-400); RBC Distribution Width 15.1 % (11.5-14.5); Red Blood Cell (RBC) Count 4.17 mill/uL (4.70-6.10); White Blood Cell (WBC) Count 3.8 thou/uL (4.8-10.8)
[2019-01-17 11:40] LABS: ALT (SGPT) 13 U/L (8-55); AST (SGOT) 34 U/L (5-34); Alkaline Phosphatase 122 U/L (40-150); Anion Gap 13 mmol/L (10-20); BUN (Urea Nitrogen) Less than 4 mg/dL (8.4-25.7); Bilirubin, Total 0.7 mg/dL (0.2-1.2); Calc. Creatinine Clearance 0 mL/min (70-130); Calcium 8.3 mg/dL (7.8-10.44); Carbon Dioxide 25 mmol/L (23-31); Chloride 100 mmol/L (98-107); Estimated GFR-MDRD Greater than 90; Globulin 2.6 g/dL (2.4-3.5); Glucose 91 mg/dL (80-115); Potassium 3.7 mmol/L (3.5-5.1); Protein, Total 5.6 g/dL (5.8-8.1); Sodium 134 mmol/L (136-145); Uric Acid 3.1 mg/dL (3.5-7.2)
== END 2019-01-17 14:53 | disposition home or self-care (01) ==
LOC: ONC/OP 10:19
PROVIDERS: ATTEND Internal Medicine Medical Oncology
DX: Z51.11 Encounter for antineoplastic chemotherapy (principal); C34.11 Malignant neoplasm of upper lobe, right bronchus or lung; Z91.040 Latex allergy status
CPT/HCPCS: 71260; 80053; 83615; 84550; 85025; J1100; J2405; J3490; J7050; J9271; J9305

== ENCOUNTER 2019-01-17 10:20 | Outpatient (CLI) | payer MEDICARE ==
--- NOTE | 2019-01-17 11:32 | CT ---
Exam: Chest CT scan with IV contrast: HISTORY: Malignant neoplasm upper lobe, right bronchus or lung COMPARISON: 04/24/2018 FINDINGS: Again noted is a right upper lobe spiculated mass measuring 2.1 cm where it previously measured 2.5 c m. Right paratracheal enlarged lymph node now measures 1.6 cm where it previously measured 2.5 cm. The previously noted right paraesophageal lymph node is very poorly seen at most measuring 0.7 cm whe re it previously measured 2.1 cm. Left paratracheal lymph node shows slight decrease in size now measuring 0.9 x 2.2 cm where it previously measured 1.1 x 2.3 cm. No evidence of pleural effusion or pericardial effusion. No evidence for liver metastasis. Slight fullness in the GE junction region, possibly a small hiatal hernia. IMPRESSION: Decrease in size in the right upper lobe spiculated mass and mediastinal and right hilar adenopathy a s above. No significant new process.
[2019-01-17] MEDS ORDERED: Iopamidol 370 76% 100 ML VIAL ONE (12:17)
== END 2019-01-17 10:21 | disposition home or self-care (01) ==
LOC: CT 10:20
PROVIDERS: ATTEND Internal Medicine Medical Oncology
DX: C34.11 Malignant neoplasm of upper lobe, right bronchus or lung (principal); R91.8 Other nonspecific abnormal finding of lung field; R59.0 Localized enlarged lymph nodes
CPT/HCPCS: 71260

== ENCOUNTER 2019-01-20 11:04 | Day surgery (SDC) | payer MEDICARE ==
[2019-01-20 12:33] VITALS: BP 127/64; TEMP 98.2
== END 2019-01-20 16:32 | disposition home or self-care (01) ==
LOC: ONC/OP 11:04
PROVIDERS: ATTEND Internal Medicine Medical Oncology
DX: Z51.11 Encounter for antineoplastic chemotherapy (principal); C34.11 Malignant neoplasm of upper lobe, right bronchus or lung; Z91.040 Latex allergy status
CPT/HCPCS: 96375; 96413; 96417; J1100; J2405; J3490; J7050; J9271; J9305

== ENCOUNTER 2019-02-07 12:15 | Day surgery (SDC) | payer MEDICARE ==
[2019-02-07 12:28] VITALS: BP 109/64; TEMP 98.6
== END 2019-02-07 13:37 | disposition home or self-care (01) ==
LOC: ONC/OP 12:15
PROVIDERS: ATTEND Internal Medicine Medical Oncology
DX: Z51.11 Encounter for antineoplastic chemotherapy (principal); C34.11 Malignant neoplasm of upper lobe, right bronchus or lung; Z91.040 Latex allergy status
CPT/HCPCS: 96375; 96409; 96415; J1100; J2405; J3490; J7050; J9271; J9305

== ENCOUNTER 2019-02-10 07:54 | Outpatient (CLI) | payer MEDICARE ==
[2019-02-10] MEDS ORDERED: Gadobenate Dimeglumine 529 MG/1 ML (20ML VIAL) ONE (09:00)
--- NOTE | 2019-02-10 10:23 | MRI ---
EXAM: MRI of the brain without and with contrast HISTORY: Metastatic brain disease with headaches; lung cancer COMPARISON: 03/04/2018 TECHNIQUE: Multiplanar multisequence MR images were obtained of the brain without and with IV contras t. FINDINGS: There are scattered foci of high FLAIR signal in the subcortical and periventricular white matter, li anusha secondary to small vessel ischemic disease. There are scattered small areas of susceptibility artifact in the brain consistent with hemosiderin deposition. The largest is seen near the fourth chika tricle. Susceptibility artifact is less prominent than on the prior examination The previously seen abnormal areas of enhancement have completely resolved. No restricted diffusion. No hydronephrosis. No extra-axial fluid collection or acute intracranial hemorrhage. The expected flow voids are present. Corpus callosum, pituitary, and craniocervical junction are within normal limits. The calvarium and overlying soft tissues are unremarkable. The paranasal sinuses and mastoid air cells are well aerated. IMPRESSION: Significant improvement in intracranial metastatic disease without abnormal enhancement seen intracra nially at this time.
== END 2019-02-10 07:55 | disposition home or self-care (01) ==
LOC: SCSMRI 07:54
PROVIDERS: ATTEND Internal Medicine Medical Oncology
DX: C34.11 Malignant neoplasm of upper lobe, right bronchus or lung (principal); C79.31 Secondary malignant neoplasm of brain
CPT/HCPCS: 70553; A9577

== ENCOUNTER 2019-04-04 12:40 | Day surgery (SDC) | payer MEDICARE ==
[~2019-04-04 12:40] MED LIST changes: +Dexamethasone Sod Phosphate 10 MG, Ondansetron 2MG/ML MDV 10 MG in Sodium Chloride 0.9%... IVPB SCH; -Folic Acid 1 MG TAB PO SCH; -Ondansetron 2MG/ML MDV 10 MG, Dexamethasone Sod Phosphate 10 MG in Sodium Chloride 0.9%... IVPB SCH; -PEMETREXED IVPB SCH; -SODIUM CHLORIDE 0.9% IVPB SCH
[2019-04-04 13:03] VITALS: BP 100/55; TEMP 98.3
== END 2019-04-04 14:25 | disposition home or self-care (01) ==
LOC: ONC/OP 12:40
PROVIDERS: ATTEND Internal Medicine Medical Oncology
DX: Z51.12 Encounter for antineoplastic immunotherapy (principal); C34.11 Malignant neoplasm of upper lobe, right bronchus or lung; Z91.040 Latex allergy status
CPT/HCPCS: 96375; 96413; J1100; J2405; J7050; J9271

== ENCOUNTER 2019-05-02 11:30 | Day surgery (SDC) | payer MEDICARE ==
[~2019-05-02 11:30] MED LIST changes: +Folic Acid 1 MG TAB PO SCH; +PEMETREXED IVPB SCH; +SODIUM CHLORIDE 0.9% IVPB SCH
[2019-05-02 11:58] VITALS: BP 124/61; TEMP 98.2
== END 2019-05-02 14:08 | disposition home or self-care (01) ==
LOC: ONC/OP 11:30
PROVIDERS: ATTEND Nurse Practitioner Acute Care
DX: Z51.11 Encounter for antineoplastic chemotherapy (principal); C34.11 Malignant neoplasm of upper lobe, right bronchus or lung; Z91.040 Latex allergy status
CPT/HCPCS: 36415; 80053; 82248; 83615; 84100; 84550; 96413; J1100; J2405; J7050; J9271

== ENCOUNTER 2019-06-06 13:16 | Day surgery (SDC) | payer MEDICARE ==
[2019-06-06 13:22] VITALS: BP 142/66; TEMP 98.2
== END 2019-06-06 15:27 | disposition home or self-care (01) ==
LOC: ONC/OP 13:16
PROVIDERS: ATTEND Internal Medicine Medical Oncology
DX: Z51.12 Encounter for antineoplastic immunotherapy (principal); C34.11 Malignant neoplasm of upper lobe, right bronchus or lung; Z91.040 Latex allergy status; Z91.048 Other nonmedicinal substance allergy status
CPT/HCPCS: 96372; 96375; 96413; 96417; J1100; J2405; J3420; J3490; J7050; J9271; J9305

== ENCOUNTER 2019-06-24 10:04 | Outpatient (CLI) | payer MEDICARE ==
[2019-06-24] MEDS ORDERED: Iopamidol 370 76% 100 ML VIAL ONE (10:53)
[2019-06-24] MEDS ORDERED: Magnevist 469MG/ML 20 ML VIAL ONE (11:08)
--- NOTE | 2019-06-24 11:31 | CT ---
CT CHEST WITH CONTRAST: CT ABDOMEN WITH CONTRAST: HISTORY: Right lung cancer. Stage IV cancer. CORRELATION: None. COMPARISON: 01/17/2019 FINDINGS CHEST Mediastinum: Enlarged AP window lymph node measures 2.6 x 1.5 x 1.6 cm. Enlarged right paratracheal l ymph node measures 1.4 x 1.2 cm. Previously, the AP window lymph node measured 2.2 x 0.9 cm and the right paratracheal lymph node measured 1.7 x 1.6 cm. Aorta: Normal caliber. No periaortic fat stranding. Heart: Normal heart size. No significant pericardial fluid. Trachea and central bronchi: Patent. Pleural spaces: No significant effusion Right lung: Spiculated mass in the right upper lobe measuring 2.4 x 1.3 cm. Previously this mass sandie ured 2.1 x 1.5 cm. Stable emphysematous change in the upper lobe. Stable calcified granuloma in the right perihilar region and right lower lobe. Left lung:Stable emphysematous change in the lung apex. Pneumothorax: None. Abdomen CT: Gallbladder: Unremarkable. Portal vein: Patent. Liver: Appropriate enhancement. Spleen: Appropriate enhancement. Pancreas: Appropriate enhancement. Adrenal glands: Appropriate enhancement. Lymphadenopathy: No gastrohepatic, retrocrural or periportal lymphadenopathy. Kidneys: Stable left renal cyst measuring 1.7 x 1.7 cm. Bilaterally no obstructive uropathy. Mesentery: No mass, lymphadenopathy, free air or free fluid. Alimentary canal: Limited evaluation by the lack of oral contrast. No evidence of bowel obstruction. Normal caliber appendix. Osseous structures: No lytic or blastic lesions. IMPRESSION: 1. Essentially stable spiculated mass in the right upper lobe. 2. Stable mediastinal lymphadenopathy. 3. No new masses in the lung parenchyma. Transcribed Date/Time: 06/24/2019 12:37 PM
--- NOTE | 2019-06-24 12:10 | MRI ---
EXAM: MRI of the brain without and with contrast HISTORY: Right lung cancer. Evaluate for brain metastatic disease. COMPARISON: 02/10/2019, 03/04/2018 TECHNIQUE: Multiplanar multisequence MR images were obtained of the brain without and with IV contras t. FINDINGS: There are scattered foci of high T2/FLAIR signal in the subcortical and periventricular white matter, likely secondary to small vessel ischemic disease. No restricted diffusion. No abnormal enhancement on today's examination. No hydronephrosis. There are stable scattered areas of susceptibility artifact in the brain consistent with areas of pre vious hemosiderin deposition. The largest is seen in the midline of the posterior fossa. The expected flow voids are present. Corpus callosum, pituitary, and craniocervical junction are within normal limits. The calvarium and overlying soft tissues are unremarkable. The paranasal sinuses are well aerated. A small amount of fluid is seen in the bilateral mastoid air cells. IMPRESSION: No evidence of residual intracranial metastatic disease on today's examination.
== END 2019-06-24 10:05 | disposition home or self-care (01) ==
LOC: CT 10:04
PROVIDERS: ATTEND Internal Medicine Hematology & Oncology
DX: C34.11 Malignant neoplasm of upper lobe, right bronchus or lung (principal); C71.9 Malignant neoplasm of brain, unspecified; R59.0 Localized enlarged lymph nodes; R91.8 Other nonspecific abnormal finding of lung field
CPT/HCPCS: 70553; 71260; 74160; A9579; Q9967

== ENCOUNTER 2019-06-27 12:22 | Day surgery (SDC) | payer MEDICARE ==
[2019-06-27] MEDS ORDERED: Sodium Chloride 0.9% 20 ML ONE (12:27)
[2019-06-27 12:57] VITALS: BP 90/58; TEMP 98.6
== END 2019-06-27 15:15 | disposition home or self-care (01) ==
LOC: ONC/OP 12:22
PROVIDERS: ATTEND Internal Medicine Medical Oncology
DX: Z51.11 Encounter for antineoplastic chemotherapy (principal); C34.11 Malignant neoplasm of upper lobe, right bronchus or lung; Z91.040 Latex allergy status; Z91.048 Other nonmedicinal substance allergy status
CPT/HCPCS: 96372; 96375; 96411; 96413; J1100; J2405; J3420; J3490; J7050; J9271; J9305

== ENCOUNTER 2019-07-25 11:51 | Day surgery (SDC) | payer MEDICARE ==
[~2019-07-25 11:51] MED LIST changes: -Folic Acid 1 MG TAB PO SCH
[2019-07-25] MEDS ORDERED: Sodium Chloride 0.9% 20 ML ONE (11:57)
[2019-07-25 13:09] VITALS: BP 104/72; TEMP 98.8
== END 2019-07-25 13:41 | disposition home or self-care (01) ==
LOC: ONC/OP 11:51
PROVIDERS: ATTEND Internal Medicine Medical Oncology
DX: Z51.11 Encounter for antineoplastic chemotherapy (principal); C34.11 Malignant neoplasm of upper lobe, right bronchus or lung; Z91.040 Latex allergy status
CPT/HCPCS: 96372; 96375; 96411; 96413; J1100; J2405; J3420; J3490; J7050; J9271; J9305

== ENCOUNTER 2019-08-22 11:53 | Day surgery (SDC) | payer MEDICARE ==
[~2019-08-22 11:53] MED LIST changes: -Pembrolizumab 200 MG in Sodium Chloride 0.9% 250 ML 250 ML IV SCH
[2019-08-22 12:30] VITALS: BP 98/60; TEMP 99.1
[2019-08-22] MEDS: Pembrolizumab 200 MG in Sodium Chloride 0.9% 250 ML 250 ML IV SCH ×2 (13:52→13:53)
== END 2019-08-22 14:39 | disposition home or self-care (01) ==
LOC: ONC/OP 11:53
PROVIDERS: ATTEND Internal Medicine Medical Oncology
DX: Z51.11 Encounter for antineoplastic chemotherapy (principal); C34.11 Malignant neoplasm of upper lobe, right bronchus or lung; Z91.040 Latex allergy status
CPT/HCPCS: 96375; 96413; 96417; J1100; J2405; J3490; J7050; J9271; J9305

== ENCOUNTER 2019-09-19 12:47 | Day surgery (SDC) | payer MEDICARE ==
[~2019-09-19 12:47] MED LIST changes: -Cyanocobalamin 1000 MCG/ML VIAL SC SCH; +Dexamethasone 10 MG, Ondansetron 2MG/ML MDV 10 MG in Sodium Chloride 0.9% 50 ML IVPB SCH; +Pembrolizumab 200 MG in Sodium Chloride 0.9% 250 ML 250 ML IV SCH
[2019-09-19 17:03] VITALS: BP 94/62; TEMP 98.4
== END 2019-09-19 17:08 | disposition home or self-care (01) ==
LOC: ONC/OP 12:47
PROVIDERS: ATTEND Internal Medicine Medical Oncology
DX: Z51.11 Encounter for antineoplastic chemotherapy (principal); C34.11 Malignant neoplasm of upper lobe, right bronchus or lung; Z91.040 Latex allergy status
CPT/HCPCS: 96375; 96411; 96413; J1100; J2405; J3490; J7050; J9271; J9305

== ENCOUNTER 2019-10-17 13:13 | Day surgery (SDC) | payer MEDICARE ==
[~2019-10-17 13:13] MED LIST changes: +Cyanocobalamin 1000 MCG/ML VIAL SC SCH; -Dexamethasone 10 MG, Ondansetron 2MG/ML MDV 10 MG in Sodium Chloride 0.9% 50 ML IVPB SCH
[2019-10-17] MEDS ORDERED: Sodium Chloride 0.9% 20 ML ONE (13:27)
[2019-10-17 14:29] VITALS: TEMP 98.3
[2019-10-17 15:43] VITALS: BP 104/62
== END 2019-10-17 15:43 | disposition home or self-care (01) ==
LOC: ONC/OP 13:13
PROVIDERS: ATTEND Internal Medicine Medical Oncology
DX: Z51.11 Encounter for antineoplastic chemotherapy (principal); C34.11 Malignant neoplasm of upper lobe, right bronchus or lung; Z91.040 Latex allergy status
CPT/HCPCS: 96372; 96375; 96411; 96413; J1100; J2405; J3420; J3490; J7050; J9271; J9305

== ENCOUNTER 2019-11-14 11:21 | Day surgery (SDC) | payer MEDICARE ==
[2019-11-14 11:48] VITALS: BP 118/65; TEMP 98.8
[2019-11-14] MEDS ORDERED: Sodium Chloride 0.9% 20 ML ONE (11:49)
== END 2019-11-14 15:22 | disposition home or self-care (01) ==
LOC: ONC/OP 11:21
PROVIDERS: ATTEND Internal Medicine Medical Oncology
DX: Z51.11 Encounter for antineoplastic chemotherapy (principal); C34.11 Malignant neoplasm of upper lobe, right bronchus or lung; Z91.040 Latex allergy status
CPT/HCPCS: 96372; 96375; 96413; 96417; J1100; J2405; J3420; J3490; J7050; J9271; J9305

== ENCOUNTER 2019-12-12 10:00 | Day surgery (SDC) | payer MEDICARE ==
[~2019-12-12 10:00] MED LIST changes: +Folic Acid 1 MG TAB PO SCH
[2019-12-12 10:37] VITALS: BP 93/51; TEMP 99.1
== END 2019-12-12 12:28 | disposition home or self-care (01) ==
LOC: ONC/OP 10:00
PROVIDERS: ATTEND Internal Medicine Medical Oncology
DX: Z51.11 Encounter for antineoplastic chemotherapy (principal); C34.11 Malignant neoplasm of upper lobe, right bronchus or lung; Z91.040 Latex allergy status
CPT/HCPCS: 96372; 96375; 96411; 96413; 96417; J1100; J2405; J3420; J3490; J7050; J9271; J9305

== ENCOUNTER 2019-12-19 08:30 | Outpatient (CLI) | payer MEDICARE ==
[2019-12-19 09:12] LABS: Estimated GFR-MDRD - POC Greater than 90
--- NOTE | 2019-12-19 10:59 | CT ---
EXAM: CT chest and abdomen with IV contrast PROVIDED CLINICAL HISTORY: Lung carcinoma. Follow-up evaluation. COMPARISON: 06/24/2019 FINDINGS: CT thorax: Spiculated mass medial right upper lobe in a suprahilar location is again seen. The mass is overall s maller in size previously measuring 3 cm x 2.4 cm x 1.3 cm in greatest dimensions on prior study, and now measures 2.7 cm x 2.1 cm x 1.1 cm. No additional discrete pulmonary nodule or mass is seen. Calcified granuloma is present at the right lung base, and emphysematous changes are again seen in the lungs. No pleural effusion is identified. Calcified right hilar lymph node is present. AP window and precarinal lymph nodes on the prior exam have mildly diminished in size. The AP window lymph node measures 2.4 cm x 0.9 cm and previously measured 2.6 cm x 1.6 cm. The precarinal lymph node measures approximately 1.2 cm x 0.9 cm with prior measurements of 1.4 cm x 1.2 cm. No additional enlarged mediastinal or hilar lymph nodes are appreciated. CT ABDOMEN: Calcified granulomata are again seen in the spleen. Subcentimeter too small to characterize hypodense lesion in the right kidney with stable inferior nuvia e left renal cyst again seen. The liver, pancreas, and bilateral adrenal glands demonstrated a normal CT appearance. Dense vascular calcifications are seen in the abdominal aorta and involving the iliac arteries. Moderate amount of retained fecal material is seen throughout the colon. A few scattered colonic dive rticuli are seen. Loops of small bowel are normal in caliber. The appendix is visualized and normal in caliber. Degenerative changes are seen in the spine. No suspicious lytic or sclerotic osseous lesions are seen . IMPRESSION: 1. Slight interval decrease in size of spiculated right upper lobe pulmonary nodule as well as decrea se in size of mediastinal lymph nodes.
== END 2019-12-19 08:31 | disposition home or self-care (01) ==
LOC: SCSCT 08:30
PROVIDERS: ATTEND Internal Medicine Medical Oncology
DX: C34.90 Malignant neoplasm of unspecified part of unspecified bronchus or lung (principal); R91.1 Solitary pulmonary nodule; R59.0 Localized enlarged lymph nodes
CPT/HCPCS: 71260; 74160; 82565

== ENCOUNTER 2020-01-02 11:07 | Day surgery (SDC) | payer MEDICARE ==
[2020-01-02 11:29] VITALS: BP 128/80; TEMP 98.4
== END 2020-01-02 13:01 | disposition home or self-care (01) ==
LOC: ONC/OP 11:07
PROVIDERS: ATTEND Internal Medicine Medical Oncology
DX: Z51.11 Encounter for antineoplastic chemotherapy (principal); C34.11 Malignant neoplasm of upper lobe, right bronchus or lung; Z91.040 Latex allergy status
CPT/HCPCS: 96372; 96375; 96411; 96413; J1100; J2405; J3420; J3490; J7050; J9271; J9305

== ENCOUNTER 2020-01-30 11:14 | Day surgery (SDC) | payer MEDICARE ==
[~2020-01-30 11:14] MED LIST changes: -Cyanocobalamin 1000 MCG/ML VIAL SC SCH
[2020-01-30] MEDS ORDERED: Sodium Chloride 0.9% 20 ML ONE (11:22)
[2020-01-30 13:07] VITALS: BP 99/55
== END 2020-01-30 13:13 | disposition home or self-care (01) ==
LOC: ONC/OP 11:14
PROVIDERS: ATTEND Internal Medicine Medical Oncology
DX: Z51.11 Encounter for antineoplastic chemotherapy (principal); C34.11 Malignant neoplasm of upper lobe, right bronchus or lung; Z91.040 Latex allergy status
CPT/HCPCS: 96375; 96411; 96413; J1100; J2405; J3490; J7050; J9271; J9305

== ENCOUNTER 2020-03-26 23:01 | Inpatient (IN) | payer MEDICARE, OTHER ==
[2020-03-27] MEDS ORDERED: Dextrose 5% in Water 1,000 ML IV PRN ×2 (04:13→16:35)
[2020-03-27] MEDS ORDERED: Dextrose 50% Abboject 50 ML SYRINGE SLOW IVP PRN ×2 (04:13→16:35)
[2020-03-27] MEDS ORDERED: Meclizine HCl 25 MG TAB PO PRN (04:14)
[2020-03-27] MEDS ORDERED: Ondansetron ODT 4 MG TAB PO PRN ×2 (04:14→04:16)
[2020-03-27] MEDS ORDERED: Prochlorperazine Maleate 5 MG TAB PO PRN (04:14)
[2020-03-27] MEDS ORDERED: D5 1/2 NS w/20 mEq KCL 1,000 ML IV SCH (04:15)
[2020-03-27] MEDS ORDERED: Acetaminophen 650 MG Suppository PR PRN (04:16)
[2020-03-27] MEDS ORDERED: Senokot S 8.6-50 MG TAB PO PRN (04:16)
[2020-03-27] MEDS ORDERED: Acetaminophen 325 MG TAB PO PRN (04:16)
[2020-03-27] MEDS ORDERED: Calcium Carbonate 500 MG ChewTAB PO PRN (04:16)
[2020-03-27 05:15] LABS: #Eosinphils 0.2 thou/uL (0.0-0.7); #Lymphocytes 1.8 thou/uL (1.20-3.40); #Monocytes 0.7 thou/uL (0.11-0.59); #Neutrophils 2.4 thou/uL (1.40-6.50); %Basophils 0.6 % (0.0-1.0); %Lymphocytes 35.7 % (21.0-51.0); %Neutrophils 46.7 % (42.0-75.0); Hemoglobin 12.8 g/dL (14.0-18.0); Mean Corpuscular HGB CONC 32.2 g/dL (32.0-36.0); Mean Corpuscular Hemoglobin 29.2 pg (27.0-31.0); Mean Corpuscular Volume 90.8 fL (78.0-98.0); Mean Platelet Volume 8.1 fL (7.4-10.4); Platelet Count 253 thou/uL (130-400); RBC Distribution Width 14.7 % (11.5-14.5); Red Blood Cell (RBC) Count 4.36 mill/uL (4.70-6.10); White Blood Cell (WBC) Count 5.1 thou/uL (4.8-10.8)
[2020-03-27] MEDS: Nicotine 14 MG PATCH TD SCH ×2 (05:20→19:36)
[2020-03-27 05:35] LABS: ALT (SGPT) 12 U/L (8-55); AST (SGOT) 34 U/L (5-34); Albumin 3.7 g/dL (3.4-4.8); Alkaline Phosphatase 74 U/L (40-110); Anion Gap 18 mmol/L (10-20); BUN (Urea Nitrogen) 5 mg/dL (8.4-25.7); Calc. Creatinine Clearance 60 mL/min (70-130); Calcium 9.3 mg/dL (7.8-10.44); Carbon Dioxide 18 mmol/L (23-31); Chloride 106 mmol/L (98-107); Estimated GFR-MDRD 88; Globulin 3.3 g/dL (2.4-3.5); Glucose 122 mg/dL (80-115); Magnesium 1.2 mg/dL (1.6-2.6); Potassium 3.7 mmol/L (3.5-5.1); Sodium 138 mmol/L (136-145)
[2020-03-27 05:39] LABS: Troponin I 0.018 ng/mL (< 0.028)
[2020-03-27] MEDS ORDERED: Magnesium 2 GM/50 ML 2 GM in Premix Bag 1 BAG IVPB SCH (08:00)
[2020-03-27] MEDS: Atorvastatin Calcium 40 MG TAB PO SCH (08:36)
[2020-03-27] MEDS: Carvedilol 3.125 MG TAB PO SCH ×2 (08:36→19:35)
[2020-03-27] MEDS: Aspirin 81 mg Enteric Coated Tablet PO SCH (08:36)
[2020-03-27] MEDS: Lisinopril 10 MG TAB PO SCH (08:37)
[2020-03-27] MEDS: Dexamethasone 4 MG TAB PO SCH ×2 (08:37→19:35)
[2020-03-27] MEDS: Folic Acid 1 MG TAB PO SCH (08:37)
[2020-03-27] MEDS: Dextrose 5 % And 0.9 % NaCl 1,000 ML IV SCH ×2 (08:45→19:34)
--- NOTE | 2020-03-27 12:56 | PDOC.HHP ---
Hospitalist HPI - History of Present Illness generalized weakness History of Present Illness: The H&P is based on EMR report since , who lives with patient, could not be reached and patient is poor historian. 64yo M w/ MHx of stage 4 lung cancer with metasteses to brain (last chemo 2019, also had brain radiation - MRI 06/2019 shows no residual mets), CAD s/p stent placement, PVD, and hypothyroidism presented for generalized weakness. Per records, sister dropped off patient in the ED since he has been weak for the past week or so, therefore skipped his last chemotherapy session. Per sister , patient usually able to answer simple questions but when ED physician attempted to carry out reveiw of systems, patient was unable to answer On encounter, lying comfortably in bed. Could not perform review of systems since patient mumbles and at times answers "yes" regardless of question. ED Course: In the ED, patient found to be dry and hypoglycemia, so dextrose containing IVF were initiated and he was admitted for further management Hospitalist ROS - Review of Systems ROS unobtainable: due to mental status - Medication Medications: Active Medications Generic Name Dose Route Start Last Admin Trade Name Freq PRN Reason Stop Dose Admin Aspirin 81 mg 03/27/20 09:00 03/27/20 08:36 Ecotrin PO 81 mg DAILY GIO Administration Atorvastatin Calcium 40 mg 03/27/20 09:00 03/27/20 08:36 Lipitor PO 40 mg DAILY GIO Administration Carvedilol 3.125 mg 03/27/20 09:00 03/27/20 08:36 Coreg PO 3.125 mg BID GIO Administration Dexamethasone 4 mg 03/27/20 09:00 03/27/20 08:37 Decadron PO 4 mg Q12HR GIO Administration Folic Acid 1 mg 03/27/20 09:00 03/27/20 08:37 Folvite PO 1 mg DAILY GIO Administration Dextrose/Sodium Chloride 1,000 mls @ 100 mls/hr 03/27/20 08:00 03/27/20 08:45 D5 0.9% Ns IV 1,000 mls .Q10H GIO Administration Lisinopril 5 mg 03/27/20 09:00 03/27/20 08:37 Zestril PO 5 mg DAILY GIO Administration Nicotine 14 mg 03/27/20 04:30 03/27/20 05:20 Nicoderm Patch TD 14 mg Q24HR GIO Administration Pantoprazole Sodium 40 mg 03/27/20 09:00 03/27/20 08:36 Protonix PO 40 mg DAILY GIO Administration Sodium Chloride 10 ml 03/27/20 09:00 03/27/20 08:38 Flush - Normal Saline IVF 10 ml Q12HR GIO Administration Hospitalist History - Past Medical History Source: old records (PAST MEDICAL HISTORY: 1. Metastatic lung cancer to the brain. 2. Coronary artery disease. 3. LA, treated with stent. 4. Hypothyroidism. 5. Hyperlipidemia. 6. Hypertension. 7. Radiation therapy for brain METS. 8. Peripheral vascular disease. PAST SURGICAL HISTORY: 1. Orthopedic surgery of bilateral feet. 2. Cardiac stent placement. SOCIAL HISTORY : The patient is a former smoker, quit in the last year, approximately 2-3 months ago. No heavy alcohol use or illicit drug use. ALLERGIES: NO KNOWN DRUG ALLERGIES. CURRENT MEDICATIONS: 1. Carvedilol 3.125 mg p.o. twice daily. 2. Lipitor 40 mg p.o. daily. 3. Zofran ODT every 6 hours p.r.n. 4. Levothyroxine 75 mcg p.o. daily. 5. Compazine 10 mg q.6 h. p.r.n. 6. Meclizine 25 mg. 7. Pantoprazole 40 mg daily. 8. Dexamethasone 4 mg b.i.d. 9. Lisinopril 5 mg daily. ) - Exam General Appearance: NAD, awake alert General - other findings: emaciated Eye: PERRL ENT: normocephalic atraumatic, dry oral mucosa Neck: no JVD Heart: RRR, no murmur, no gallops, no rubs Respiratory: CTAB, no wheezes, no rales, no ronchi Gastrointestinal: soft, non-tender, non-distended, normal bowel sounds Extremities: no edema Skin: tenting Neurological: speech deficit (mumbles and repeat "yes" to most questions; baseline unknown) Neurological - other findings: 4/5 hip and elbow flexion b/l; otherwise not following commands Psychiatric - other findings: alert; oriented x 0 Hospitalist Results - Labs Result Diagrams: 03/27/20 05:06 03/27/20 05:06 Lab results: WBC 5.1 thou/uL (4.8-10.8) 03/27/20 05:06 Hgb 12.8 g/dL (14.0-18.0) L 03/27/20 05:06 Hct 39.6 % (42.0-52.0) L 03/27/20 05:06 MCV 90.8 fL (78.0-98.0) 03/27/20 05:06 Plt Count 253 thou/uL (130-400) 03/27/20 05:06 Neutrophils % 46.7 % (42.0-75.0) 03/27/20 05:06 Sodium 138 mmol/L (136-145) 03/27/20 05:06 Potassium 3.7 mmol/L (3.5-5.1) 03/27/20 05:06 Chloride 106 mmol/L (98-107) 03/27/20 05:06 Carbon Dioxide 18 mmol/L (23-31) L 03/27/20 05:06 BUN 5 mg/dL (8.4-25.7) L 03/27/20 05:06 Creatinine 1.03 mg/dL (0.7-1.3) 03/27/20 05:06 Glucose 122 mg/dL (80-115) H 03/27/20 05:06 Calcium 9.3 mg/dL (7.8-10.44) 03/27/20 05:06 Total Bilirubin 1.0 mg/dL (0.2-1.2) 03/27/20 05:06 AST 34 U/L (5-34) 03/27/20 05:06 ALT 12 U/L (8-55) 03/27/20 05:06 Alkaline Phosphatase 74 U/L (40-110) 03/27/20 05:06 Troponin I 0.018 ng/mL (< 0.028) 03/27/20 05:06 B-Natriuretic Peptide 10.8 pg/mL (0-100) 03/27/20 05:06 Serum Total Protein 7.0 g/dL (5.8-8.1) 03/27/20 05:06 Albumin 3.7 g/dL (3.4-4.8) 03/27/20 05:06 - Radiology Interpretation Chest x-ray Status: image reviewed by me Additional Comment: R perihilar calcified granuloma, stable CT scan - head Status: report reviewed by me Additional Comment: diffuse microvascular changes, nonspecific cerebellar vermin hyperdensity ( previous CT head reported posterior fossa midline density so may be unchanged) Hospitalist H&P A/P - Problem (1) Generalized weakness Code(s): R53.1 - WEAKNESS Status: Acute (2) Dysphagia Code(s): R13.10 - DYSPHAGIA, UNSPECIFIED Status: Acute (3) GERD (gastroesophageal reflux disease) Code(s): K21.9 - GASTRO-ESOPHAGEAL REFLUX DISEASE WITHOUT ESOPHAGITIS Status: Acute (4) HTN (hypertension) Code(s): I10 - ESSENTIAL (PRIMARY) HYPERTENSION Status: Acute (5) Lung mass Code(s): R91.8 - OTHER NONSPECIFIC ABNORMAL FINDING OF LUNG FIELD Status: Acute - Plan Plan: #generalized weakness #Fall #volume depletion #Starvation Ketosis -patient receiving chemo; decardron 4mg, antiemetics suggesting reduced appetite /dyspepsia; Per speech, aspiration risk -physical exam and labs consistent with volume depletion, starvation ketosis -per EMR, also had diarrhea; requires further clarification -infectious workup -ve so far -spoke with ; tearful and difficult to understand, wasn't present at time of fall; requested to ask her children, who were present, regarding fall circumstances; difficult to understand regarding oral intake since says on one hand has been having trouble eating for at least weeks, yet was eating well 3 days ago -NS/D5w -speech/swallow onboard #stage 4 right lung cancer w/ brain mets -on chemotherapy; missed last dose last week due to malaise, weakness -most recent MRI brain (06/2019) showing no residual mets -CT head nondiagnostic; no acute intracerebral or extraxial hematoma -MRI brain w/wo contrast -per , daily nursing at home has been arranged starting next week; recommended that patient goes to custodial at this point but preferes home; will involve CM #hypothyroidism per EMR, no thyroid supplementation; TSH wnl Disposition/PPx Code status unknown; will clarify with family; meanwhile full code; surrogate is GI PPx: on pantoprazole for GERD DVT PPx: Lovenox ELOS: 2 nights
[2020-03-27 14:22] LABS: SARS-CoV-2 MS2 Positive; SARS-CoV-2 N Gene Negative; SARS-CoV-2 S Gene Negative; SARS-CoV-2 by NAA Not Detected (NotDetected); SARS-CoV-2 orf1ab Negative
[2020-03-27] MEDS ORDERED: HumaLOG 300 UNITS/3 ML VIAL SC PRN (16:35)
[2020-03-27] MEDS: Heparin 5,000 UNITS/ML VIAL SC SCH (19:35)
[2020-03-28 03:49] LABS: Anion Gap 13 mmol/L (10-20); BUN (Urea Nitrogen) 4 mg/dL (8.4-25.7); Calc. Creatinine Clearance 74 mL/min (70-130); Carbon Dioxide 22 mmol/L (23-31); Chloride 106 mmol/L (98-107); Estimated GFR-MDRD Greater than 90; Glucose 152 mg/dL (80-115); Magnesium 1.4 mg/dL (1.6-2.6); Potassium 3.4 mmol/L (3.5-5.1); Sodium 138 mmol/L (136-145)
[2020-03-28] MEDS ORDERED: PEGFILGRASTIM-JMDB 6 MG/0.6 ML SYRINGE SQ SCH (07:15)
[2020-03-28] MEDS ORDERED: Magnesium 2 GM/50 ML 2 GM in Premix Bag 1 BAG IVPB SCH (08:30)
[2020-03-28] MEDS: Aspirin 81 mg Enteric Coated Tablet PO SCH (08:56)
[2020-03-28] MEDS: Potassium Chloride 20 MEQ TAB PO SCH ×2 (08:56→12:09)
[2020-03-28] MEDS: Lisinopril 10 MG TAB PO SCH (08:57)
[2020-03-28] MEDS: Atorvastatin Calcium 40 MG TAB PO SCH (08:58)
[2020-03-28] MEDS: Carvedilol 3.125 MG TAB PO SCH ×2 (08:58→19:28)
[2020-03-28] MEDS: Folic Acid 1 MG TAB PO SCH (08:58)
[2020-03-28] MEDS: Dexamethasone 4 MG TAB PO SCH ×2 (08:58→19:28)
[2020-03-28] MEDS: Heparin 5,000 UNITS/ML VIAL SC SCH ×2 (08:59→19:28)
[2020-03-28] MEDS: Dextrose 5 % And 0.9 % NaCl 1,000 ML IV SCH ×3 (09:50→23:36)
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
--- NOTE | 2020-03-28 12:32 | MRI ---
MRI BRAIN WITH AND WITHOUT CONTRAST: INDICATIONS: History of brain metastasis. Acute confusion. CORRELATION: Head CT from 03/26/2020. Prior brain MRI from 06/24/2019 and 02/10/2019. FINDINGS: The FLAIR sequence again shows diffuse white matter hyperintensity in both cerebral hemispheres, whic h appears symmetric and is stable. Graded echo images show susceptibility foci seen in the right frontal lobe and bilateral parietal lob es. These are stable and indicate prior hemosiderin deposition. Review of diffusion weighted images today show restricted diffusion in the left occipital lobe and po sterior temporal lobe, consistent with acute infarct. The post contrast images show diffuse leptomeningeal type enhancement involving the left parietal, te mporal and portions of the left occipital lobe. The FLAIR sequence shows increased sulcal signal in t hese regions as well. There is evidence of cortical edema and effacement on FLAIR sequence in the lef t occipital lobe, at the site of the restricted diffusion. The intracranial internal carotid arteries, proximal cerebral arteries and basilar artery demonstrate flow voids. The dural venous sinuses appear patent. IMPRESSION: 1. New focus of restricted diffusion in the left occipital and posterior temporal lobe, consistent wi th acute infarct, in the distribution of the left posterior cerebral artery. 2. There is abnormal leptomeningeal effacement involving left parietal, temporal and occipital lobes. The leptomeningeal enhancement is more extensive than the area of infarct. The enhancement is not ty pical of infarct related gyriform enhancement and other etiologis must be considered. Leptomeningeal spread of neoplasm, in addition to left posterior cerebral artery infarct must be cons idered given history of prior brain mets. Inflammatory processes are also considerations. Continued close followup is recommended. Suggest repeat MRI brain with and without contrast in four t o six weeks to re-evaluate evolution of the infarct. CSF evaluation may be of benefit. 3. The diffuse white matter hyperintensities appear stable. POS: AGW
[2020-03-28] MEDS ORDERED: Magnevist 469MG/ML 20 ML VIAL ONE (15:03)
[2020-03-28] MEDS: Nicotine 14 MG PATCH TD SCH (19:28)
[2020-03-29 03:50] LABS: Anion Gap 12 mmol/L (10-20); BUN (Urea Nitrogen) 6 mg/dL (8.4-25.7); Calc. Creatinine Clearance 85 mL/min (70-130); Calcium 8.5 mg/dL (7.8-10.44); Carbon Dioxide 23 mmol/L (23-31); Chloride 109 mmol/L (98-107); Estimated GFR-MDRD Greater than 90; Glucose 118 mg/dL (80-115); Magnesium 1.7 mg/dL (1.6-2.6); Potassium 3.8 mmol/L (3.5-5.1); Sodium 140 mmol/L (136-145)
[2020-03-29] MEDS ORDERED: Clopidogrel Bisulfate 300 MG TAB PO SCH (08:15)
[2020-03-29] MEDS: Dexamethasone 4 MG TAB PO SCH ×2 (08:40→20:22)
[2020-03-29] MEDS: Carvedilol 3.125 MG TAB PO SCH ×2 (08:40→20:23)
[2020-03-29] MEDS: Folic Acid 1 MG TAB PO SCH (08:40)
[2020-03-29] MEDS: Aspirin 81 mg Enteric Coated Tablet PO SCH (08:41)
[2020-03-29] MEDS: Heparin 5,000 UNITS/ML VIAL SC SCH ×3 (08:44→20:23)
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
--- NOTE | 2020-03-29 13:46 | ULT ---
BILATERAL CAROTID DUPLEX ULTRASOUND: HISTORY: Stroke TECHNIQUE: Grayscale, color-flow and spectral Doppler ultrasound imaging of the extracranial carotid artery syst ems and vertebral arteries was performed bilaterally. FINDINGS: No large amount of echogenic plaque is seen involving the common carotid or internal carotid arteries . The peak systolic velocity in the right ICA measures 70.9 cm/s. The peak systolic velocity in the ri ght CCA measures 66.5 cm/s. The peak systolic velocity in the left ICA measures 66.3 cm/s. The peak systolic velocity in the l eft CCA measures 62.7 cm/s. The right IC/CC ration is1.1. The left IC/CC ratio is 1.1. Vertebral flow: antegrade, bilaterally. . IMPRESSION: No hemodynamically significant stenosis of either cervical carotid artery
[2020-03-29] MEDS: Dextrose 5 % And 0.9 % NaCl 1,000 ML IV SCH ×2 (14:10→20:57)
[2020-03-29] MEDS ORDERED: Atorvastatin Calcium 40 MG TAB PO SCH (21:00)
--- NOTE | 2020-03-29 22:28 | CON ---
DATE OF CONSULTATION: REASON FOR CONSULT: Lung cancer. HISTORY OF PRESENT ILLNESS: Mr. 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 He did undergo whole-brain radiation and chemotherapy with carboplatin, Alimta, and Keytruda. Chemo was completed in June of 2018 and he has been on maintenance Alimta and Keytruda since July of 2018. He did undergo a CT scan this past December, which showed slight interval decrease in the size of a spiculated right upper lobe pulmonary nodule as well as the decrease in size of the mediastinal lymph nodes. He is followed by Dr. Alarcon regarding his brain lesions. However, his last MRI in June 2019, it showed no evidence of disease. He has struggled with frailty, poor appetite, and weakness for many months. He was brought to the emergency room on March 27 for weakness and altered mental status. He was found to be dehydrated and hypoglycemic. IV fluids were initiated. He underwent a brain CT , which was concerning for possible stroke. So, he was transferred to this facility and admitted. He underwent MRI of the brain with and without contrast. There was a new focus of restricted diffusion on the left occipital and posterior temporal lobe consistent with acute infarct. There was abnormal leptomeningeal effacement involving the left parietotemporal and occipital lobes, it was concerning for leptomeningeal spread of his cancer. The patient has expressive aphasia, but is able to follow simple commands. He denies any headache at this time. PAST MEDICAL HISTORY: 1. Stage 4 adenocarcinoma of the lung with brain mets. 2. Coronary artery disease. 3. Hypertension. 4. Myocardial infarction. 5. Hypothyroidism. 6. Acid reflux. PAST SURGICAL HISTORY: Cardiac stent placement. ALLERGIES: NO KNOWN DRUG ALLERGIES. HOME MEDICATIONS: 1. Atorvastatin. 2. Carvedilol. 3. Plavix. 4. Lisinopril. 5. Megace. 6. Tramadol. FAMILY HISTORY: History of multiple relatives with cancer of unknown type. SOCIAL HISTORY: He is , has 4 children. Lives with his spouse. Former social drinker. Former smoker. No illicit drug use. REVIEW OF SYSTEMS: A 10-point review of systems is negative. PHYSICAL EXAMINATION: VITAL SIGNS: Temperature is 97.7, pulse is 67, respiratory rate is 16, BP is 117/59, and he is 99% on room air. GENERAL: This is a frail male, in no acute distress. HEENT: Normocephalic and atraumatic. Pupils are equal and reactive to light. CV: Regular rate and rhythm. LUNGS: Clear. ABDOMEN: Soft and nontender. Bowel sounds are positive. EXTREMITIES: No clubbing or cyanosis. SKIN: No rash. HEMATOLOGIC: No petechiae or purpura. NEUROLOGIC: He has expressive aphasia. Appears to have no neuromuscular deficits. PERTINENT LABORATORY DATA AND X-RAYS: Current WBCs are 5.1, hemoglobin 12.8, hematocrit 39.6, platelet count 253,000, 46% neutrophils, 35% lymphocytes, and 14% monocytes. Sodium is 140, potassium is 3.8, chloride is 109, CO2 is 23, BUN is 6, creatinine is 0.73, calcium is 8.5, magnesium is 1.7, bilirubin is 1, AST is 34 , ALT is 12, alkaline phosphatase is 74. Troponin is negative. Serum total protein is 7. Albumin is 3.7, globulin is 3.3, and lipase is 6. COVID-19 negative. Radiology, per HPI plus carotid Doppler study showed no significant stenosis of the carotid arteries. ASSESSMENT: 1. Stage 4 lung cancer with history of brain mets. 2. 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 3. Expressive aphasia. 4. Acute cerebrovascular accident. DISCUSSION: The case has been discussed with Dr. Olivo. The patient has been frail for several months and missed his last chemo treatment for weakness. There have been hospice conversations in the past, but the patient has always wished to proceed with treatments. Given the new findings of possible leptomeningeal spread of cancer, acute CVA with expressive aphasia, frailty, and poor nutrition, we would recommend hospice at this time. Palliative Care team has been consulted. We will follow along with this hospitalization. Thank you for the consult. Job ID: [id number] [facility]
[2020-03-30] MEDS: Nicotine 14 MG PATCH TD SCH (05:04)
[2020-03-30] MEDS: Aspirin 81 mg Enteric Coated Tablet PO SCH (09:04)
[2020-03-30] MEDS: Heparin 5,000 UNITS/ML VIAL SC SCH ×2 (09:04→20:29)
[2020-03-30] MEDS: Dexamethasone 4 MG TAB PO SCH ×2 (09:05→20:29)
[2020-03-30] MEDS: Clopidogrel Bisulfate 75 MG TAB PO SCH (09:05)
[2020-03-30] MEDS: Folic Acid 1 MG TAB PO SCH (09:05)
[2020-03-30] MEDS: Carvedilol 3.125 MG TAB PO SCH ×2 (09:16→20:29)
[2020-03-30] MEDS: Dextrose 5 % And 0.9 % NaCl 1,000 ML IV SCH (12:24)
[2020-03-30] MEDS: HumaLOG 300 UNITS/3 ML VIAL SC PRN ×2 (13:00→22:11)
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
[2020-03-30] MEDS: Atorvastatin Calcium 40 MG TAB PO SCH (20:29)
[2020-03-31] MEDS: Dextrose 5 % And 0.9 % NaCl 1,000 ML IV SCH ×2 (02:46→21:51)
[2020-03-31] MEDS: Nicotine 14 MG PATCH TD SCH (02:46)
[2020-03-31 06:47] LABS: Anion Gap 13 mmol/L (10-20); BUN (Urea Nitrogen) 12 mg/dL (8.4-25.7); Calc. Creatinine Clearance 87 mL/min (70-130); Calcium 8.2 mg/dL (7.8-10.44); Carbon Dioxide 23 mmol/L (23-31); Chloride 106 mmol/L (98-107); Estimated GFR-MDRD Greater than 90; Glucose 119 mg/dL (80-115); Magnesium 1.8 mg/dL (1.6-2.6); Potassium 3.6 mmol/L (3.5-5.1); Sodium 138 mmol/L (136-145)
[2020-03-31] MEDS ORDERED: Potassium Phosphate 15 MMOL in Sodium Chloride 0.9% 250 ML 250 ML IVPB SCH (08:15)
[2020-03-31 09:08] LABS: Phosphorus 1.4 mg/dL (2.3-4.7)
[2020-03-31] MEDS: Dexamethasone 4 MG TAB PO SCH ×2 (09:11→21:52)
[2020-03-31] MEDS: Clopidogrel Bisulfate 75 MG TAB PO SCH (09:11)
[2020-03-31] MEDS: Aspirin 81 mg Enteric Coated Tablet PO SCH (09:11)
[2020-03-31] MEDS: Folic Acid 1 MG TAB PO SCH (09:11)
[2020-03-31] MEDS: Carvedilol 3.125 MG TAB PO SCH (10:06)
[2020-03-31 12:55] LABS: Hemoglobin 10.9 g/dL (14.0-18.0); Platelet Count 315 thou/uL (130-400)
[2020-03-31] MEDS: Heparin 5,000 UNITS/ML VIAL SC SCH ×2 (13:06→21:51)
[2020-03-31] MEDS ORDERED: Sodium Phosphate 15 MMOL in Sodium Chloride 0.9% 250 ML 250 ML IVPB SCH (15:45)
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
[2020-03-31] MEDS: Atorvastatin Calcium 40 MG TAB PO SCH (21:52)
[2020-04-01] MEDS: Nicotine 14 MG PATCH TD SCH (04:14)
[2020-04-01 05:11] LABS: Anion Gap 9 mmol/L (10-20); BUN (Urea Nitrogen) 12 mg/dL (8.4-25.7); Calc. Creatinine Clearance 91 mL/min (70-130); Carbon Dioxide 25 mmol/L (23-31); Chloride 105 mmol/L (98-107); Estimated GFR-MDRD Greater than 90; Glucose 141 mg/dL (80-115); Magnesium 1.8 mg/dL (1.6-2.6); Phosphorus 2.7 mg/dL (2.3-4.7); Potassium 3.4 mmol/L (3.5-5.1); Sodium 136 mmol/L (136-145)
[2020-04-01] MEDS ORDERED: Potassium Chloride 20 MEQ TAB PO SCH (09:16)
[2020-04-01] MEDS: Aspirin 81 mg Enteric Coated Tablet PO SCH (09:19)
[2020-04-01] MEDS: Dexamethasone 4 MG TAB PO SCH (09:19)
[2020-04-01] MEDS: Dextrose 5 % And 0.9 % NaCl 1,000 ML IV SCH (09:19)
[2020-04-01] MEDS: Folic Acid 1 MG TAB PO SCH (09:19)
[2020-04-01] MEDS: Heparin 5,000 UNITS/ML VIAL SC SCH (09:19)
[2020-04-01] MEDS: Clopidogrel Bisulfate 75 MG TAB PO SCH (09:19)
[2020-04-01] MEDS: HumaLOG 300 UNITS/3 ML VIAL SC PRN (11:44)
[2020-04-01 15:48] VITALS: BP 119/68; TEMP 97.7
--- NOTE | 2020-04-02 04:48 | PQF ---
CLINICAL DOCUMENTATION CLARIFICATION FORM: Dear : Hermelindo Barclay Date / Time: 04/02/20 7420 Please exercise your independent, professional judgment in responding to the clarification form. Clinical indicators are provided on the bottom of this form for your review Please check appropriate box(es): [ ] Encephalopathy: Etiology: [ ] Metabolic [ ] Toxic [ ] Unspecified [ ] Other (please specify) [ ] Transient Alteration of Awareness [ x ] Other diagnosis _acute ischemic_stroke_and conductive aphasia [ ] Unable to determine In addition, please specify: Present on Admission (POA): [ x ] Yes [ ] No [ ] Unable to determine Physician Signature: Date/Time: For continuity of documentation, please document condition throughout progress notes and discharge summary. Thank You. To be completed by CDI/Coding staff for physician review: Present Clinical Indicators - Signs / Symptoms / Labs Results and Location in Medical Record [X] BP 124/91, Pulse 90, Resp 16, Temp 99.0 Vital signs 03/27 [X] Glucose 122, POC Glucose 169; 129 Laboratory 03/27 [X] Generalized weakness H&P p1 03/27 Dr Barclay [X] Altered mental status H&P p1 03/27 Dr Barclay [X] Hypoglycemia H&P p1 03/27 Dr Barclay [X] Volume depletion H&P p1 03/27 Dr Barclay [X] Starvation Ketosis H&P p1 03/27 Dr Barclay Present Risk Factors Results and Location in Medical Record [X] 64 year-old Male H&P p1 03/27 Dr Barclay [X] CAD H&P p1 03/27 Dr Barclay [X] Lung cancer with brain mets H&P p1 03/27 Dr Barclay [X] HTN H&P p1 03/27 Dr Barclay [X] Acute CVA HPN p1 03/28 Dr Barclay Present Treatments Results and Location in Medical Record [X] Dextrose/Sodium Chloride 1L SEP 21 [X] D5W 1L SEP 21 [X] Insulin 5 units SEP 21 [X] IVF NS 1L SEP 21 [X] Brain MRI Imaging 03/28 Dr Martinez CDS/Fabric Worker Leader Signature: Flavia Cordon Phone #: ext [phone] Date/Time: 04/02/2020 0447 This is a permanent part of the Medical Record [facility]
--- NOTE | 2020-04-02 04:49 | PQF ---
CLINICAL DOCUMENTATION CLARIFICATION FORM: Dear : Hermelindo Barclay Date / Time: 04/02/20 6456 Please exercise your independent, professional judgment in responding to the clarification form. Clinical indicators are provided on the bottom of this form for your review Please check appropriate box(es): [ ] Protein Calorie Malnutrition: [ ] Mild [ ] Moderate [ ] Severe [ ] Other Malnutrition (please specify) [ ] Underweight without malnutrition [ ] Cachexia [ ] Other diagnosis [ x ] Unable to determine In addition, please specify: Present on Admission (POA): [ ] Yes [ ] No [ ] Unable to determine Physician Signature: Date/Time: For continuity of documentation, please document condition throughout progress notes and discharge summary. Thank You. To be completed by CDI/Coding staff for physician review: Present Clinical Indicators - Signs / Symptoms / Labs Results and Location in Medical Record [X] BP 124/91, Pulse 90, Resp 16, Temp 99.0 Vital signs 03/27 [X] Serum total protein 7.0, Albumin 3.7, Globulin 3.3, Ratio 1.1 Laboratory 03/27 [X] gGeneralized weaknessh H&P p1 03/27 Dr Barclay [X] Hypoglycemia H&P p1 03/27 Dr Barclay [X] Volume depletion H&P p1 03/27 Dr Barclay [X] Starvation Ketosis H&P p1 03/27 Dr Barclay [X] BMI 20 Nutritional assessment Dietitian Cecilia 03/27 [X] Poor appetite Nutritional assessment Dietitian Cecilia 03/27 [X] gNoted moderate temporalis muscle and severe buccal pad wasting suggestive of severe malnutrition in context of chronic illnessh Nutritional assessment Dietitian Cecilia 03/27 Present Risk Factors Results and Location in Medical Record [X] 64 year-old Male H&P p1 03/27 Dr Barclay [X] CAD H&P p1 03/27 Dr Barclay [X] Lung cancer with brain mets H&P p1 03/27 Dr Barclay [X] HTN H&P p1 03/27 Dr Barclay [X] Acute CVA HPN p1 03/28 Dr Barclay [X] Former Smoker ED Notes 03/26 [X] GERD HPN p5 03/28 Dr Barclay [X] Dysphagia HPN p5 03/28 Dr Braclay [X] Starvation Ketosis HPN p5 03/28 Dr Barclay Present Treatments Results and Location in Medical Record [X] Dietary consult Nutritional assessment Dietitian Brooks 03/27 [X] Nutritional supplements Nutritional assessment Dietitian Brooks 03/27 [X] Monitor oral intake Nutritional assessment Dietitian Brooks 03/27 [X] Monitor weight Nutritional assessment Dietitian Brooks 03/27 [X] Appetite stimulant - medication Nutritional assessment Dietitian Brooks 03/27 CDS/Direct Support Professional Signature: Flavia Cordon Phone #: ext [phone] Date/Time: 04/02/2020 0449 Moderate Malnutrition (in acute illness) ? Energy Intake: <75% of estimated energy requirement for > 7 days ? Weight Loss: 1-2%/1 week; 5%/ 1 month; 7.5%/3 months ? Other: mild body fat loss; mild muscle mass loss; mild fluid accumulation; Severe Malnutrition (in acute illness) ? Energy Intake: ? 50% of estimated energy requirement for ? 5 days ? Weight Loss: >2%/1 week; >5%/1 month; >7.5%/3 months ? Other: moderate body fat loss; moderate muscle mass loss; moderate- severe fluid accumulation; measurably reduced firebrick layer strength Moderate Malnutrition (in chronic illness) ? Energy Intake: <75% of estimated energy requirement for ?1 month ? Weight Loss: 5%/1 month; 7.5%/3 months; 10%/6 months; 20%/1 year ? Other: mild body fat loss; mild muscle mass loss; mild fluid accumulation Severe Malnutrition (in chronic illness) ? Energy Intake: ?75% of estimated energy requirement for ?1 month ? Weight Loss: >5%/1 month; >7.5%/3 months; >10%/6 months; >20%/1 year ? Other: severe body fat loss; severe muscle mass loss; severe fluid accumulation; measurably reduced firebrick layer strength This is a permanent part of the Medical Record [facility]
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
== END 2020-04-01 17:30 | DRG 65 ==
LOC: ERS 23:01 → ONC 03-27 00:14 → 2SE 03-29 15:33
PROVIDERS: ADMIT Internal Medicine; ATTEND Internal Medicine
DX: I63.9 Cerebral infarction, unspecified (principal); C34.91 Malignant neoplasm of unspecified part of right bronchus or lung; C79.31 Secondary malignant neoplasm of brain; Z20.828 Contact with and (suspected) exposure to other viral communicable diseases; E03.9 Hypothyroidism, unspecified; E16.2 Hypoglycemia, unspecified; R47.01 Aphasia; K21.9 Gastro-esophageal reflux disease without esophagitis; I10 Essential (primary) hypertension; R13.10 Dysphagia, unspecified; E86.9 Volume depletion, unspecified; E88.89 Other specified metabolic disorders; E86.0 Dehydration; T73.0XXA Starvation, initial encounter; I25.10 Atherosclerotic heart disease of native coronary artery without angina pectoris; R29.707 NIHSS score 7; R40.2363 Coma scale, best motor response, obeys commands, at hospital admission; R40.2133 Coma scale, eyes open, to sound, at hospital admission; R40.2243 Coma scale, best verbal response, confused conversation, at hospital admission; I25.2 Old myocardial infarction; Z95.5 Presence of coronary angioplasty implant and graft; Z79.899 Other long term (current) drug therapy; Z79.82 Long term (current) use of aspirin; Z87.891 Personal history of nicotine dependence
CPT/HCPCS: 36415; 36416; 70553; 80048; 80053; 83735; 83880; 84100; 84134; 84443; 84484; 85014; 85018; 85025; 85049; 87635; 93306; 93880; 99285; A9579; J1644; J3475; J3480; J7050; J8540; U0003

== ENCOUNTER 2020-05-01 20:03 | Inpatient (IN) | payer MEDICARE, OTHER ==
--- NOTE | 2020-05-01 21:50 | PDOC.FPRHP ---
- History of Present Illness Chief Complaint: SOB History of Present Illness: This is a 65 yo male with a pmh of CAD and hx of stents, stage IV lung cancer with mets to the brain, and HTN who presents to the ER from his [facility] in [place] with a cc of hypoxia and SOB. He states that these symptoms started about a week ago. He states he had progressive SOB that worsened this afternoon. He denies chest pain, fever, cough, nausea, vomiting, or constipation. He does report diarrhea earlier in the week but this has resolved. He denies any current symptoms and reports he is still having some shortness of breath. At baseline, he is wheelchair bound and will occasionally us a walker. He does not wear O2 at baseline. I attempted calling family overnight with no answer. [place]. ED Course: Vancomycin 25mg/kg Cefepime 2g 1L NS bolus - Allergies/Adverse Reactions Allergies Allergy/AdvReac Type Severity Reaction Status Date / Time Latex, Natural Rubber Allergy Verified 03/27/20 02:21 - Home Medications Medication Instructions Recorded Confirmed Type Dexamethasone 4 mg PO Q12HR 02/17/18 05/01/20 History Meclizine HCl [Antivert] 25 mg PO TID PRN 02/17/18 05/01/20 History Folic Acid 1 mg PO DAILY 03/27/20 05/01/20 History Acetaminophen [Tylenol Regular 650 mg PO Q4H PRN #28 tab 04/01/20 05/01/20 Rx Strength] Aspirin [Ecotrin Low Strength] 81 mg PO DAILY #60 tab 04/01/20 05/01/20 Rx Atorvastatin Calcium [Lipitor] 40 mg PO HS #60 tab 04/01/20 05/01/20 Rx Clopidogrel Bisulfate [Plavix] 75 mg PO DAILY #17 tab 04/01/20 05/01/20 Rx Lisinopril [Zestril] 5 mg PO DAILY #0 04/01/20 05/01/20 Rx Sennosides/Docusate Sodium 2 tab PO BID PRN #30 tab 04/01/20 05/01/20 Rx [Senokot S] - History PMHx: Stage IV lung cancer with mets to brain (on chemo), CAD s/p stents, PVD PSHx: Cardiac stents FHx: non-contributory 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 denies: fever/chills, weight/appetite/sleep changes, night sweats Eyes: denies: eye pain, vision changes ENT: denies: nasal congestion, rhinorrhea Respiratory: reports: shortness of breath, exercise intolerance. denies: cough, congestion Cardiovascular: denies: chest pain, palpitation, edema, paroxysmal nocturnal dyspnea Gastrointestinal: reports: diarrhea. denies: nausea, vomiting, constipation, abdominal pain, GI bleeding Genitourinary: reports: incontinence. denies: dysuria Skin: denies: rashes, lesions Musculoskeletal: denies: pain, tenderness, stiffness Neurological: denies: numbness, syncope Psychological: denies: anxiety, depression - Vital signs BP: 109/80 HR: 105 RR: 23 Tmax: 99.1 Pox: 96% on 6L nc Wt: 77 kg - Physical Exam Constitutional: NAD, awake, alert and oriented, other (cachetic) HEENT: normocephalic and atraumatic, PERRLA, EOMI, grossly normal hearing, other (dry mm) Neck: trachea midline, no JVD Chest: no-tender to palpation, no lesions Heart: normal S1/S2, no murmurs/rubs/gallops, other (tachycardic) Lungs: other (coarse breathsounds diffusely, diminished breath sounds on the r ight lower lobe) Abdomen: soft, non-tender, bowel sounds present Musculoskeletal: other (muscle wasting) Neurological: CN II-XII intact Skin: good turgor, capillary refill <2 seconds Heme/Lymphatic: no unusual bruising or bleeding FMR H&P: Results - Labs Result Diagrams: 05/02/20 06:25 05/02/20 06:25 Lab results: WBC 9.2 Hgb 14.1 Hct 45.7 Plt 307 D-dimer 2.52 Na 136 K 3.6 Cl 101 Bicarb 23 BUN 17 Cr. 0.68 Glucose 90 Lactic acid 1.4 Trop 0.01 BNP <10 Albumin 3.3 - EKG Interpretation EKG: Sinus tachycardia HR 111, no st elevation or depression - Radiology Interpretation CT scan - chest Status: image reviewed by me, report reviewed by me (CTA chest: No PE, Significant chagne in the lung am when compared to the 6/5/20 exam. Diffuse intersticial thickening throughout both lungs. Intersticial spread of neoplasm would be the primary consideration. Spiculated mass in the right upper lung is again seen. Right hilar mass) Chest x-ray Status: image reviewed by me, report reviewed by me (Interval development of interstitial and alveolar opacity with a reticulonodular configuration, right greater than left. Infections pneumonitis or aspiration is favored. Atypical infectious pneumonitis is a possibility) FMR H&P: A/P - Problem List (1) Lung cancer Current Visit: Yes Status: Chronic Code(s): C34.90 - MALIGNANT NEOPLASM OF UNSP PART OF UNSP BRONCHUS OR LUNG (2) Acute respiratory failure with hypoxia Current Visit: Yes Status: Acute Code(s): J96.01 - ACUTE RESPIRATORY FAILURE WITH HYPOXIA (3) COVID-19 Current Visit: Yes Status: Acute Code(s): U07.1 - COVID-19 (4) Brain metastases Current Visit: No Status: Chronic Code(s): C79.31 - SECONDARY MALIGNANT NEOPLASM OF BRAIN (5) CAD (coronary artery disease), [place] coronary artery Current Visit: No Status: Chronic Code(s): I25.10 - ATHSCL HEART DISEASE OF [place] CORONARY ARTERY W/O ANG PCTRS (6) HTN (hypertension) Current Visit: No Status: Chronic Code(s): I10 - ESSENTIAL (PRIMARY) HYPERTENSION - Plan Acute hypoxic respiratory failure 2/2 to worsening lung cancer vs. superimposed pneumonia -Admit to medical inpt - s/p Vanc and Cefepime in ED - will continue Vanc and Cefepime - Procal pending - currently on 6L NC, will continue to monitor and switch to high flow NC if needed -Will discuss with family/pt palliative care -Will consult oncology in the AM Presumptive sepsis 2/2 COVID 19 vs above Stage IV Lung cancer with mets to brain -Consult oncology in the AM -Pt continues to have conductive aphasia COVID-19 positive -Estimated Initial date of symptoms: 04/26/20 -Establishing baseline COVID labs -Will obtain ABG if pt worsens -Pt on baseline dexamethasone, s/p Solumedrol 125mg CAD s/p stents -Continue home plavix, aspirin, and atorvastatin -Consider discontinuing if pt is made palliative care PVD HTN -Will monitor Code: Full, confirmed by me. Pt decisional at the time Prophylaxis: lovenox Family: None at bedside Fluids: LR 100ml/hr Diet: Regular Disposition: DC in 4-5 days PCP: Dr. Mederos FMR H&P: Upper Level - Plan Date/Time: 05/01/20 1532 I, Barry Beaulieu DO, have evaluated this patient and agree with findings/plan as outlined by internal affairs commander resident. I examined the patient and performed the majority of the documentation of this note. Addendum - Attending - Attending Attestation Date/Time: 05/02/20 6199 I personally evaluated the patient and discussed the management with Dr. Beaulieu I agree with the History, Examination, Assessment and Plan documented above with any addition or exceptions noted below. Palliative care consultation regard Goals of Care in the setting of assumed COVID PNA and metastatic Lung Cancer.
[2020-05-01 23:20] LABS: SARS-CoV-2 NAA Rapid Test DETECTED (NotDetected)
[2020-05-02] MEDS ORDERED: methylPREDNISolone Sod Succ/PF 125 MG/2 ML VIAL IVP SCH (00:15)
[2020-05-02 00:40] LABS: Actual Bicarbonate (HCO3a) 22.3 mEq/L (22-28); Analyzer IN Cardio ER; CO2 Tension 30.1 mmHg (35.0-45.0); Calcium, Ionized (arterial) 1.16 mmol/L (1.12-1.30); Carboxyhemoglobin (COHb) 0.8 gm% (0.0-3.0); Hemoglobin (Hb) 14.4 g/dL (14.0-18.0); Potassium - ABG Lab 3.42 mmol/L (3.70-5.30); pH, Arterial 7.49 (7.35-7.45)
[2020-05-02 00:45] LABS: ALV-art Gradient 522.075 mmHg (0-20); Puncture Site R RADIAL
[2020-05-02] MEDS ORDERED: Acetaminophen 325 MG TAB PO PRN (02:02)
[2020-05-02] MEDS ORDERED: Senokot S 8.6-50 MG TAB PO PRN (02:02)
[2020-05-02] MEDS ORDERED: Meclizine HCl 25 MG TAB PO PRN (02:02)
[2020-05-02] MEDS ORDERED: Ondansetron ODT 4 MG TAB PO PRN (02:02)
[2020-05-02] MEDS ORDERED: Ondansetron PF 4 MG/2 ML Vial IVP PRN (02:02)
[2020-05-02] MEDS: Lactated Ringer's 1,000 ML IV SCH ×3 (02:24→21:12)
[2020-05-02 03:10] VITALS: BMI 27.3
[2020-05-02] MEDS: Albuterol Sulfate 2.5 mg/3 ml Neb NEB SCH ×2 (03:31→08:32)
[2020-05-02] MEDS: Vancomycin 1.5 GRAM/300 ML BAG 1.5 GM in Premix Bag 1 BAG IVPB SCH ×2 (04:07→14:47)
[2020-05-02] MEDS ORDERED: Vancomycin 1 GM in Premix Bag 1 BAG IVPB SCH (06:00)
[2020-05-02] MEDS: Cefepime 2 GM in Sodium Chloride 0.9% 100 ML IVPB SCH ×2 (06:03→17:38)
[2020-05-02 06:45] LABS: #Eosinphils 0.1 thou/uL (0.0-0.7); #Monocytes 0.2 thou/uL (0.11-0.59); #Neutrophils 9.5 thou/uL (1.40-6.50); %Basophils 0.4 % (0.0-1.0); %Eosinophils 0.6 % (0.0-10.0); %Lymphocytes 8.9 % (21.0-51.0); %Monocytes 1.7 % (0.0-10.0); %Neutrophils 88.4 % (42.0-75.0); Hemoglobin 13.3 g/dL (14.0-18.0); Mean Corpuscular HGB CONC 32.8 g/dL (32.0-36.0); Mean Corpuscular Hemoglobin 30.3 pg (27.0-31.0); Mean Corpuscular Volume 92.5 fL (78.0-98.0); Mean Platelet Volume 7.3 fL (7.4-10.4); Platelet Count 319 thou/uL (130-400); RBC Distribution Width 18.4 % (11.5-14.5); White Blood Cell (WBC) Count 10.7 thou/uL (4.8-10.8)
--- NOTE | 2020-05-02 07:03 | PDOC.FM ---
- Subjective Subjective: Patient states his breathing is better this morning than last night with high flow NC. No other concerns or complaints, a little sleepy and not very compliant with interview b/c he feels tired. - Objective MAR Reviewed: Yes Vital Signs & Weight: Vital Signs (12 hours) Temp Pulse Resp BP Pulse Ox 05/02/20 03:32 95 05/02/20 02:30 100 05/02/20 02:02 98.4 F 106 H 20 106/74 100 Weight Weight 77 kg I&O: 05/01/20 05/02/20 05/03/20 06:59 06:59 06:59 Intake Total 1400 Balance 1400 Result Diagrams: 05/02/20 06:25 05/02/20 06:25 Phys Exam - Physical Examination Constitutional: NAD nc/at no respiratory distress Cardiovascular: RRR, no significant murmur Gastrointestinal: soft, non-tender Musculoskeletal: no edema Neurological: non-focal, moves all 4 limbs Deviation from normal: blunt affect Dx/Plan - Plan Plan: #Acute hypoxic respiratory failure 2/2 to worsening lung cancer vs. superimposed pneumonia vs. covid -On HFNC 52% FiO2, 40L/min - will continue Vanc and Cefepime pending procal & bcx - Albuterol INH, steroids, lovenox, continue supportive care - Palliative on board #Presumptive sepsis 2/2 COVID 19 vs above - see above #Stage IV Lung cancer with mets to brain -Palliative on board -Patient follows with Dr. Olivo outpatient. Patient currently receiving chemo. -CT Chest: R upper lobe spiculated mass with increased size in right hilar mass. Pt improved this morning so will hold of on onc consult intpt but if doesn't improve/worsens tomorrow then consider heme/onc consult #COVID-19 positive -Estimated Initial date of symptoms: 04/26/20 -Pending COVID labs -Will obtain ABG if pt worsens -Pt on baseline dexamethasone BID, s/p Solumedrol 125mg #CAD s/p stents -Continue home plavix, aspirin, and atorvastatin -Consider discontinuing if pt is made palliative care #PVD -Stable #HTN -Will monitor Code: Full Prophylaxis: lovenox Family: None at bedside Fluids: LR 100ml/hr Diet: Regular Disposition: DC in 4-5 days PCP: Dr. Mederos Addendum - Attending - Attending Attestation Date/Time: 05/02/20 7210 I personally evaluated the patient and discussed the management with Dr. German I agree with the History, Examination, Assessment and Plan documented above with any addition or exceptions noted below. 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 Patient more animated with improved interaction and sating well with HF O2.
[2020-05-02 07:07] LABS: Anion Gap 14 mmol/L (10-20); BUN (Urea Nitrogen) 15 mg/dL (8.4-25.7); Calc. Creatinine Clearance 135 mL/min (70-130); Calcium 8.3 mg/dL (7.8-10.44); Carbon Dioxide 20 mmol/L (23-31); Chloride 104 mmol/L (98-107); Estimated GFR-MDRD Greater than 90; Glucose 90 mg/dL (80-115); Sodium 134 mmol/L (136-145)
[2020-05-02] MEDS: Aspirin 81 mg Enteric Coated Tablet PO SCH (08:31)
[2020-05-02] MEDS: Enoxaparin Sodium 40 MG/0.4 ML SYRINGE SC SCH (08:31)
[2020-05-02] MEDS: Folic Acid 1 MG TAB PO SCH (08:31)
[2020-05-02] MEDS: Lisinopril 5 MG TAB PO SCH (08:31)
[2020-05-02] MEDS: Clopidogrel Bisulfate 75 MG TAB PO SCH (08:31)
[2020-05-02] MEDS: Dexamethasone 4 MG TAB PO SCH ×2 (08:31→20:07)
[2020-05-02] MEDS ORDERED: Albuterol Sulfate 2.5 mg/3 ml Neb NEB SCH (10:30)
[2020-05-02 11:00] LABS: ALT (SGPT) 24 U/L (8-55); AST (SGOT) 26 U/L (5-34); Alkaline Phosphatase 84 U/L (40-110); Bilirubin, Direct 0.5 mg/dL (0.1-0.3); Protein, Total 6.3 g/dL (5.8-8.1)
[2020-05-02] MEDS: Albuterol 200 PUFF (6.7GM INHALER) INH SCH ×4 (14:48→22:25)
[2020-05-02] MEDS ORDERED: Magnesium 2 GM/50 ML 2 GM in Premix Bag 1 BAG IVPB SCH (18:30)
[2020-05-02] MEDS: Atorvastatin Calcium 40 MG TAB PO SCH (20:07)
[2020-05-02] MEDS ORDERED: Prevnar 13-Val Conj/PF 0.5 ML SYRINGE IM ONE (21:00)
[2020-05-02] MEDS ORDERED: FLU VACC QS2020-21(6MOS UP)/PF 60 MCG/0.5 ML SYRINGE IM ONE (21:00)
[2020-05-03] MEDS: Albuterol 200 PUFF (6.7GM INHALER) INH SCH ×6 (02:30→21:26)
[2020-05-03] MEDS: Vancomycin 1.5 GRAM/300 ML BAG 1.5 GM in Premix Bag 1 BAG IVPB SCH (03:29)
[2020-05-03 04:58] LABS: #Eosinphils 0.1 thou/uL (0.0-0.7); #Lymphocytes 0.9 thou/uL (1.20-3.40); #Monocytes 0.3 thou/uL (0.11-0.59); #Neutrophils 6.6 thou/uL (1.40-6.50); %Basophils 0.1 % (0.0-1.0); %Eosinophils 0.7 % (0.0-10.0); %Lymphocytes 11.9 % (21.0-51.0); %Monocytes 3.5 % (0.0-10.0); %Neutrophils 83.9 % (42.0-75.0); Hemoglobin 10.6 g/dL (14.0-18.0); Mean Corpuscular HGB CONC 32.4 g/dL (32.0-36.0); Mean Corpuscular Hemoglobin 29.8 pg (27.0-31.0); Mean Platelet Volume 7.3 fL (7.4-10.4); Platelet Count 318 thou/uL (130-400); Red Blood Cell (RBC) Count 3.55 mill/uL (4.70-6.10); White Blood Cell (WBC) Count 7.9 thou/uL (4.8-10.8)
[2020-05-03 05:21] LABS: Anion Gap 12 mmol/L (10-20); BUN (Urea Nitrogen) 16 mg/dL (8.4-25.7); Calc. Creatinine Clearance 143 mL/min (70-130); Calcium 8.1 mg/dL (7.8-10.44); Carbon Dioxide 21 mmol/L (23-31); Chloride 100 mmol/L (98-107); Estimated GFR-MDRD Greater than 90; Glucose 192 mg/dL (80-115); Magnesium 1.8 mg/dL (1.6-2.6); Potassium 3.6 mmol/L (3.5-5.1); Sodium 129 mmol/L (136-145)
[2020-05-03 05:24] LABS: Vancomycin, Trough 61.9 ug/mL
[2020-05-03] MEDS: Cefepime 2 GM in Sodium Chloride 0.9% 100 ML IVPB SCH ×2 (05:47→19:43)
[2020-05-03] MEDS: Lactated Ringer's 1,000 ML IV SCH ×3 (05:47→17:45)
[2020-05-03] MEDS: Dexamethasone 4 MG TAB PO SCH ×2 (08:05→21:26)
[2020-05-03] MEDS: Folic Acid 1 MG TAB PO SCH (08:05)
[2020-05-03] MEDS: Enoxaparin Sodium 40 MG/0.4 ML SYRINGE SC SCH (08:05)
[2020-05-03] MEDS: Lisinopril 5 MG TAB PO SCH (08:05)
[2020-05-03] MEDS: Aspirin 81 mg Enteric Coated Tablet PO SCH (08:05)
[2020-05-03] MEDS: Clopidogrel Bisulfate 75 MG TAB PO SCH (08:05)
--- NOTE | 2020-05-03 12:20 | PDOC.FM ---
- Subjective Subjective: Pt is doing well today. He states his respiratory status has improved. He has been undergoing treatment for his cancer but did not appear to understand palliative vs eradicate the malignancy. - Objective Vital Signs & Weight: Vital Signs (12 hours) Temp Pulse Resp BP Pulse Ox 05/03/20 08:25 100 05/03/20 08:20 97.9 F 73 20 121/72 100 05/03/20 08:05 82 05/03/20 03:50 97.4 F L 82 18 112/70 100 05/03/20 00:55 97.8 F 85 18 100/63 100 Weight Weight 77 kg I&O: 05/02/20 05/03/20 05/04/20 06:59 06:59 06:59 Intake Total 1400 1480 120 Balance 1400 1480 120 Result Diagrams: 05/03/20 04:24 05/03/20 04:24 Phys Exam - Physical Examination Constitutional: NAD HEENT: PERRLA, moist MMs Neck: no nodes, no JVD bilateral crackles Cardiovascular: RRR, no significant murmur Gastrointestinal: soft, non-tender Dx/Plan (1) Acute respiratory failure with hypoxia Code(s): J96.01 - ACUTE RESPIRATORY FAILURE WITH HYPOXIA Status: Acute (2) COVID-19 Code(s): U07.1 - COVID-19 Status: Acute (3) Lung cancer Code(s): C34.90 - MALIGNANT NEOPLASM OF UNSP PART OF UNSP BRONCHUS OR LUNG Status: Chronic (4) GERD (gastroesophageal reflux disease) Code(s): K21.9 - GASTRO-ESOPHAGEAL REFLUX DISEASE WITHOUT ESOPHAGITIS Status: Acute (5) Lung mass Code(s): R91.8 - OTHER NONSPECIFIC ABNORMAL FINDING OF LUNG FIELD Status: Acute (6) HTN (hypertension) Code(s): I10 - ESSENTIAL (PRIMARY) HYPERTENSION Status: Chronic - Plan Plan: #Acute hypoxic respiratory failure 2/2 to worsening lung cancer vs. superimposed pneumonia vs. covid -On HFNC 52% FiO2, 40L/min - will continue Vanc and Cefepime pending procal & bcx - Albuterol INH, steroids, lovenox, continue supportive care - Palliative on board - Need to discuss case with Dr. Hamm to decide if COVID medications will be initiated #Presumptive sepsis 2/2 COVID 19 vs above - see above #Stage IV Lung cancer with mets to brain -Palliative on board -Patient follows with Dr. Olivo outpatient. Patient currently receiving chemo. Will discuss case with Dr. Olivo. -CT Chest: R upper lobe spiculated mass with increased size in right hilar mass. Pt improved this morning so will hold of on onc consult intpt but if doesn't improve/worsens tomorrow then consider heme/onc consult #COVID-19 positive -Estimated Initial date of symptoms: 04/26/20 -Will obtain ABG if pt worsens -Pt on baseline dexamethasone BID, s/p Solumedrol 125mg #CAD s/p stents -Continue home plavix, aspirin, and atorvastatin -Consider discontinuing if pt is made palliative care #PVD -Stable #HTN -Will monitor Code: Full Prophylaxis: lovenox Family: None at bedside Fluids: LR 100ml/hr Diet: Regular Disposition: DC in 4-5 days PCP: Dr. Mederos
[2020-05-03 16:34] LABS: Vancomycin, Trough 14.2 ug/mL
[2020-05-03] MEDS ORDERED: Vancomycin 1.5 GRAM/300 ML BAG 1.5 GM in Premix Bag 1 BAG IVPB SCH (17:00)
[2020-05-03] MEDS: Atorvastatin Calcium 40 MG TAB PO SCH (21:26)
[2020-05-04] MEDS: Albuterol 200 PUFF (6.7GM INHALER) INH SCH ×6 (02:30→23:08)
[2020-05-04] MEDS: Vancomycin 1.5 GRAM/300 ML BAG 1.5 GM in Premix Bag 1 BAG IVPB SCH ×2 (04:00→16:03)
[2020-05-04] MEDS: Cefepime 2 GM in Sodium Chloride 0.9% 100 ML IVPB SCH ×2 (05:27→19:25)
[2020-05-04] MEDS: Lactated Ringer's 1,000 ML IV SCH ×2 (05:28→10:35)
[2020-05-04 06:07] LABS: #Lymphocytes 0.7 thou/uL (1.20-3.40); #Monocytes 0.3 thou/uL (0.11-0.59); #Neutrophils 5.8 thou/uL (1.40-6.50); %Basophils 0.1 % (0.0-1.0); %Eosinophils 0.3 % (0.0-10.0); %Lymphocytes 10.8 % (21.0-51.0); %Neutrophils 83.8 % (42.0-75.0); Hemoglobin 9.8 g/dL (14.0-18.0); Mean Corpuscular HGB CONC 32.9 g/dL (32.0-36.0); Mean Corpuscular Volume 91.1 fL (78.0-98.0); Platelet Count 325 thou/uL (130-400); RBC Distribution Width 17.2 % (11.5-14.5); Red Blood Cell (RBC) Count 3.26 mill/uL (4.70-6.10); White Blood Cell (WBC) Count 6.9 thou/uL (4.8-10.8)
[2020-05-04 06:34] LABS: Anion Gap 10 mmol/L (10-20); BUN (Urea Nitrogen) 16 mg/dL (8.4-25.7); Calc. Creatinine Clearance 148 mL/min (70-130); Calcium 8.3 mg/dL (7.8-10.44); Carbon Dioxide 24 mmol/L (23-31); Chloride 101 mmol/L (98-107); Estimated GFR-MDRD Greater than 90; Glucose 120 mg/dL (80-115); Potassium 3.7 mmol/L (3.5-5.1); Sodium 131 mmol/L (136-145)
--- NOTE | 2020-05-04 07:32 | PDOC.FM ---
- Subjective Subjective: Pt is doing well today. He has no complaints. He sees Dr. Olivo for his lung cancer. He is tolerating PO intake. Denies any pain, neurological deficits. His respiratory status is unchanged per pt. - Objective Vital Signs & Weight: Vital Signs (12 hours) Temp Pulse Resp BP Pulse Ox 05/04/20 04:00 98.6 F 72 18 109/76 96 05/03/20 20:00 98.0 F 89 19 100/59 L 96 Weight Admit Weight 77 kg Weight 77 kg I&O: 05/03/20 05/04/20 05/05/20 06:59 06:59 06:59 Intake Total 1480 480 Balance 1480 480 Result Diagrams: 05/04/20 05:51 05/04/20 05:51 Phys Exam - Physical Examination Constitutional: NAD HEENT: PERRLA, moist MMs Neck: no JVD, full ROM bilateral crackles, high flow oxygen Cardiovascular: RRR, no significant murmur Gastrointestinal: soft, non-tender Musculoskeletal: no edema, pulses present Neurological: non-focal, moves all 4 limbs Psychiatric: normal affect, A&O x 3 Dx/Plan (1) Acute respiratory failure with hypoxia Code(s): J96.01 - ACUTE RESPIRATORY FAILURE WITH HYPOXIA Status: Acute (2) COVID-19 Code(s): U07.1 - COVID-19 Status: Acute (3) Lung cancer Code(s): C34.90 - MALIGNANT NEOPLASM OF UNSP PART OF UNSP BRONCHUS OR LUNG Status: Chronic (4) GERD (gastroesophageal reflux disease) Code(s): K21.9 - GASTRO-ESOPHAGEAL REFLUX DISEASE WITHOUT ESOPHAGITIS Status: Acute (5) Lung mass Code(s): R91.8 - OTHER NONSPECIFIC ABNORMAL FINDING OF LUNG FIELD Status: Acute (6) HTN (hypertension) Code(s): I10 - ESSENTIAL (PRIMARY) HYPERTENSION Status: Chronic - Plan Plan: #Acute hypoxic respiratory failure 2/2 to worsening lung cancer vs. superimposed pneumonia vs. covid -On HFNC 52% FiO2, 40L/min - will continue Vanc and Cefepime pending bcx. Procal negative. - Albuterol INH, steroids, lovenox, continue supportive care - Palliative on board - Need to discuss case with Dr. Hamm to decide if COVID medications will be in itiated. Spoke with Dr. Fernandez who states pt was in remission and lesions had not progressed. #Presumptive sepsis 2/2 COVID 19 vs above - see above #Stage IV Lung cancer with mets to brain -Palliative on board -Patient follows with Dr. Olivo outpatient. Discussed case with Dr. Fernandez. -CT Chest: R upper lobe spiculated mass with increased size in right hilar mass. Pt improved this morning so will hold of on onc consult intpt but if doesn't improve/worsens tomorrow then consider heme/onc consult #COVID-19 positive -Estimated Initial date of symptoms: 04/26/20 -Will obtain ABG if pt worsens -Pt on baseline dexamethasone BID, s/p Solumedrol 125mg #CAD s/p stents -Continue home plavix, aspirin, and atorvastatin #PVD -Stable #HTN -Will monitor Code: Full Prophylaxis: lovenox Fluids: LR 100ml/hr Diet: Regular Disposition: Discuss COVID treatment PCP: Dr. Mederos
[2020-05-04] MEDS: Clopidogrel Bisulfate 75 MG TAB PO SCH (09:23)
[2020-05-04] MEDS: Dexamethasone 4 MG TAB PO SCH ×2 (09:23→20:46)
[2020-05-04] MEDS: Aspirin 81 mg Enteric Coated Tablet PO SCH (09:23)
[2020-05-04] MEDS: Enoxaparin Sodium 40 MG/0.4 ML SYRINGE SC SCH (09:23)
[2020-05-04] MEDS: Lisinopril 5 MG TAB PO SCH (09:24)
[2020-05-04] MEDS: Folic Acid 1 MG TAB PO SCH (09:24)
[2020-05-04 15:28] LABS: Vancomycin, Trough 17.5 ug/mL
[2020-05-04] MEDS ORDERED: Digoxin 0.5 MG/2 ML AMP SLOW IVP SCH (18:00)
[2020-05-04] MEDS ORDERED: Amiodarone 450 MG in Dextrose 5% in Water 250 ML IVPB SCH (18:00)
--- NOTE | 2020-05-04 18:16 | PDOC.EVN ---
Event Note - Event Note Event Note: Nurse notified team pt was tachycardic 120's-130's, hemodynamically stable. EKG revealed a-fib with rvr during examination and pressures were 90's/50's. Pt's sob was unchanged, denied chest pain, and AAO x 3 w/o lighheadness or dizziness. Discussed case with Dr. Donaldson and Dr. King and ultimately initiated amiodarone drip and digoxin 0.5 mg IV one time. Will transfer to telemetry. Shmuel Maldonado, DO 05/04/20 7954
[2020-05-04] MEDS ORDERED: Amiodarone 150 MG, Admixture Fee 1 EACH in Dextrose 5% in Water 100 ML IVPB SCH (20:30)
[2020-05-04] MEDS: Atorvastatin Calcium 40 MG TAB PO SCH (20:46)
[2020-05-04 20:52] LABS: ALT (SGPT) 22 U/L (8-55); AST (SGOT) 17 U/L (5-34); Albumin 2.6 g/dL (3.4-4.8); Alkaline Phosphatase 70 U/L (40-110); Bilirubin, Direct 0.2 mg/dL (0.1-0.3); Bilirubin, Total 0.3 mg/dL (0.2-1.2); Magnesium 1.5 mg/dL (1.6-2.6); Potassium 3.8 mmol/L (3.5-5.1); Protein, Total 5.3 g/dL (5.8-8.1)
[2020-05-04] MEDS ORDERED: Magnesium 2 GM/50 ML 2 GM in Premix Bag 1 BAG IVPB SCH (21:30)
[2020-05-05] MEDS: Vancomycin 1.5 GRAM/300 ML BAG 1.5 GM in Premix Bag 1 BAG IVPB SCH ×2 (03:02→15:23)
[2020-05-05] MEDS: Albuterol 200 PUFF (6.7GM INHALER) INH SCH ×6 (03:02→22:28)
[2020-05-05 04:42] LABS: #Lymphocytes 0.8 thou/uL (1.20-3.40); #Monocytes 0.5 thou/uL (0.11-0.59); #Neutrophils 5.4 thou/uL (1.40-6.50); %Basophils 0.4 % (0.0-1.0); %Eosinophils 0.2 % (0.0-10.0); %Lymphocytes 12.3 % (21.0-51.0); %Monocytes 6.9 % (0.0-10.0); %Neutrophils 80.2 % (42.0-75.0); Hemoglobin 10.8 g/dL (14.0-18.0); Mean Corpuscular HGB CONC 33.4 g/dL (32.0-36.0); Mean Corpuscular Hemoglobin 30.5 pg (27.0-31.0); Mean Corpuscular Volume 91.3 fL (78.0-98.0); Mean Platelet Volume 7.3 fL (7.4-10.4); Platelet Count 334 thou/uL (130-400); RBC Distribution Width 17.3 % (11.5-14.5); Red Blood Cell (RBC) Count 3.54 mill/uL (4.70-6.10); White Blood Cell (WBC) Count 6.7 thou/uL (4.8-10.8)
[2020-05-05 05:03] LABS: Anion Gap 10 mmol/L (10-20); BUN (Urea Nitrogen) 17 mg/dL (8.4-25.7); Calc. Creatinine Clearance 135 mL/min (70-130); Calcium 8.1 mg/dL (7.8-10.44); Carbon Dioxide 26 mmol/L (23-31); Chloride 100 mmol/L (98-107); Estimated GFR-MDRD Greater than 90; Glucose 143 mg/dL (80-115); Magnesium 1.9 mg/dL (1.6-2.6); Potassium 3.6 mmol/L (3.5-5.1); Sodium 132 mmol/L (136-145)
[2020-05-05] MEDS: Cefepime 2 GM in Sodium Chloride 0.9% 100 ML IVPB SCH ×2 (05:05→17:29)
--- NOTE | 2020-05-05 07:22 | PDOC.FM ---
- Subjective Subjective: Pt is doing well today. He has no complaints. He is sinus rhythm since 2199 on 05/04. He only required digoxin. He was titrated off of high flow and transitioned to RA. - Objective Vital Signs & Weight: Vital Signs (12 hours) Temp Pulse Pulse Resp BP BP Pulse Ox 05/05/20 03:35 97.7 F 68 18 104/55 L 97 05/05/20 00:35 100 05/04/20 23:36 97.7 F 69 20 93/57 L 100 05/04/20 22:40 97.6 F 66 18 94/59 L 100 05/04/20 22:37 97.6 F 66 18 90/57 L 100 05/04/20 22:21 98.0 F 63 18 98/60 99 05/04/20 19:47 98 05/04/20 19:26 120 H Weight Admit Weight 77 kg Weight 77 kg I&O: 05/04/20 05/05/20 05/06/20 06:59 06:59 06:59 Intake Total 480 3350 Balance 480 3350 Result Diagrams: 05/05/20 04:14 05/05/20 04:14 Phys Exam - Physical Examination Constitutional: NAD HEENT: PERRLA, moist MMs Respiratory: no wheezing bilateral crackles Cardiovascular: RRR, no significant murmur Gastrointestinal: soft, non-tender Musculoskeletal: no edema, pulses present Neurological: non-focal Psychiatric: normal affect, A&O x 3 Dx/Plan (1) Acute respiratory failure with hypoxia Code(s): J96.01 - ACUTE RESPIRATORY FAILURE WITH HYPOXIA Status: Acute (2) COVID-19 Code(s): U07.1 - COVID-19 Status: Acute (3) Lung cancer Code(s): C34.90 - MALIGNANT NEOPLASM OF UNSP PART OF UNSP BRONCHUS OR LUNG Status: Chronic (4) GERD (gastroesophageal reflux disease) Code(s): K21.9 - GASTRO-ESOPHAGEAL REFLUX DISEASE WITHOUT ESOPHAGITIS Status: Acute (5) Lung mass Code(s): R91.8 - OTHER NONSPECIFIC ABNORMAL FINDING OF LUNG FIELD Status: Acute (6) HTN (hypertension) Code(s): I10 - ESSENTIAL (PRIMARY) HYPERTENSION Status: Chronic - Plan Plan: #Acute hypoxic respiratory failure 2/2 to worsening lung cancer vs. superimposed pneumonia vs. covid - On RA this am - transitioned off of high flow - will continue Vanc and Cefepime pending bcx. Procal negative. - Albuterol INH, steroids, lovenox, continue supportive care - Palliative on board - Pt does not qualify for remdesiver. Conv Plasma administered 05/04. #Presumptive sepsis 2/2 COVID 19 vs above - see above #Stage IV Lung cancer with mets to brain -Palliative on board -Patient follows with Dr. Olivo outpatient. Discussed case with Dr. Fernandez. -CT Chest: R upper lobe spiculated mass with increased size in right hilar mass. Pt improved this morning so will hold of on onc consult intpt but if doesn't improve/worsens tomorrow then consider heme/onc consult #COVID-19 positive -Estimated Initial date of symptoms: 04/26/20 -Pt on baseline dexamethasone BID, s/p Solumedrol 125mg #A-Fib - new onset - rvr resolved with digoxin - Amiodarone held as pt converted to NSR - Cardiology consulted, appreciate recs #CAD s/p stents -Continue home plavix, aspirin, and atorvastatin #PVD -Stable #HTN -Will monitor Code: Full Prophylaxis: lovenox Fluids: SL Diet: Regular Disposition: pending cardiology recs and respiratory stability PCP: Dr. Mederos
[2020-05-05] MEDS: Enoxaparin Sodium 40 MG/0.4 ML SYRINGE SC SCH (09:23)
[2020-05-05] MEDS: Folic Acid 1 MG TAB PO SCH (09:23)
[2020-05-05] MEDS: Aspirin 81 mg Enteric Coated Tablet PO SCH (09:23)
[2020-05-05] MEDS: Lisinopril 5 MG TAB PO SCH (09:24)
[2020-05-05] MEDS: Clopidogrel Bisulfate 75 MG TAB PO SCH (09:24)
[2020-05-05] MEDS: Dexamethasone 4 MG TAB PO SCH ×2 (09:24→21:10)
[2020-05-05] MEDS: Digoxin 0.125 MG TAB PO SCH (11:03)
--- NOTE | 2020-05-05 13:39 | PQF ---
CLINICAL DOCUMENTATION CLARIFICATION FORM: Dear Dr. Dae Maldonado Date: 05/05/2020 1328 Please exercise your independent, professional judgment in responding to the clarification form. Clinical indicators are provided on the bottom of this form for your review. Please check appropriate box(es) to clarify if the following diagnosis has been ruled in our ruled out: Pneumonia [ ] Ruled in diagnosis [ ] Continue to treat [ ] Resolved [ x ] Ruled out diagnosis [ ] Improving [ ] Cannot rule out diagnosis [ ] Other diagnosis [ ] Unable to determine In addition, please specify: Present on Admission (POA): [ x ] Yes [ ] No [ ] Unable to determine For continuity of documentation, please document condition throughout progress notes and discharge summary. Thank You. To be completed by CDI/Coding staff for physician review: CLINICAL INDICATORS - SIGNS / SYMPTOMS / LABS / RESULTS AND LOCATION IN MR Pulse 115, resp 25, 96% NRB, presents for SOB, while at [place] ED it was determined the patient had pneumonia and was given Rocephin azithromycin and IV fluids and then transferred over here for further evaluation. Final DX : sepsis, Pneumonia ( ED Report/ 05/01) Acute hypoxic Respiratory failure 2/2 to worsening lung cancer vs superimposed pneumonia ( H&P/ Hernandez) 05/01 Acute hypoxic Respiratory failure 2/2 to worsening lung cancer vs superimposed pneumonia vs. Covid ( PN/German) 05/02 Acute hypoxic Respiratory failure 2/2 to worsening lung cancer vs superimposed pneumonia vs. Covid ( PN/ Maldonado) 05/03- present) RISK FACTORS / RESULTS AND LOCATION IN MR Lung cancer, Covid 19, Acute Respiratory Failure H&P/Hernandez) 05/01 Presumptive Sepsis ( PN/Erica) 05/03 TREATMENTS / RESULTS AND LOCATION IN MR Supplemental Oxygen ( 05/01-present) Vancomycin IV/ Cefepime IV. ( ED/ 05/01) Thank you! CDS Signature: Shannon Barnes RN Phone #: [phone] Date: 05/05/20 7288 This is a permanent part of the Medical Record [facility]
--- NOTE | 2020-05-05 17:16 | EKG ---
Test Reason : Blood Pressure : / mmHG Vent. Rate : 146 BPM Atrial Rate : 136 BPM P-R Int : 000 ms QRS Dur : 084 ms QT Int : 256 ms P-R-T Axes : 000 022 012 degrees QTc Int : 398 ms Atrial fibrillation with rapid ventricular response with premature ventricular or aberrantly conducte d complexes Abnormal ECG No previous ECGs available Confirmed by JENNIFER CHANDLER (2) on 05/05/2020 5:15:57 PM Referred By: SALINAS Confirmed By:JENNIFER CHANDLER
--- NOTE | 2020-05-05 17:37 | PRG ---
DATE OF SERVICE: 05/05/2020 Mr. Chi is a 65-year-old gentleman, who had a percutaneous coronary intervention nearly 8 years ago. He said he has not been having chest pain or pressure. Now, he has an extensive history of metastatic lung cancer as outlined in the chart. He did have episode of atrial fibrillation last night. He is currently on intravenous amiodarone. Continue amiodarone overnight. Reassess tomorrow. I think it is also reasonable to take him off the Plavix at this point. He has been on the Plavix nearly 8 years along with aspirin, not having any chest pain. We will check the patient again tomorrow. Job ID: [id number]
[2020-05-05] MEDS: Atorvastatin Calcium 40 MG TAB PO SCH (21:10)
[2020-05-06] MEDS: Albuterol 200 PUFF (6.7GM INHALER) INH SCH ×5 (02:30→18:31)
[2020-05-06 05:15] LABS: #Eosinphils 0.1 thou/uL (0.0-0.7); #Lymphocytes 1.2 thou/uL (1.20-3.40); #Monocytes 0.7 thou/uL (0.11-0.59); #Neutrophils 6.2 thou/uL (1.40-6.50); %Basophils 0.1 % (0.0-1.0); %Eosinophils 0.9 % (0.0-10.0); %Lymphocytes 14.5 % (21.0-51.0); %Monocytes 8.5 % (0.0-10.0); Hemoglobin 12.2 g/dL (14.0-18.0); Mean Corpuscular HGB CONC 33.2 g/dL (32.0-36.0); Mean Corpuscular Hemoglobin 30.2 pg (27.0-31.0); Mean Corpuscular Volume 91.2 fL (78.0-98.0); Mean Platelet Volume 7.3 fL (7.4-10.4); Platelet Count 354 thou/uL (130-400); RBC Distribution Width 17.7 % (11.5-14.5); Red Blood Cell (RBC) Count 4.02 mill/uL (4.70-6.10); White Blood Cell (WBC) Count 8.1 thou/uL (4.8-10.8)
[2020-05-06] MEDS: Cefepime 2 GM in Sodium Chloride 0.9% 100 ML IVPB SCH (05:20)
[2020-05-06 05:36] LABS: Anion Gap 13 mmol/L (10-20); BUN (Urea Nitrogen) 17 mg/dL (8.4-25.7); Calc. Creatinine Clearance 131 mL/min (70-130); Calcium 8.3 mg/dL (7.8-10.44); Carbon Dioxide 22 mmol/L (23-31); Chloride 100 mmol/L (98-107); Estimated GFR-MDRD Greater than 90; Glucose 185 mg/dL (80-115); Potassium 3.7 mmol/L (3.5-5.1); Sodium 131 mmol/L (136-145)
[2020-05-06 05:37] LABS: Vancomycin, Trough 15.1 ug/mL
[2020-05-06] MEDS: Vancomycin 1.5 GRAM/300 ML BAG 1.5 GM in Premix Bag 1 BAG IVPB SCH (05:58)
--- NOTE | 2020-05-06 07:12 | PDOC.FM ---
- Subjective Subjective: Pt is doing well today. He has no complications. His respiratory status is unchanged. Currently on no oxygen. He denies fever, chills, diarrhea, constipation, chest pain, SOB. - Objective Vital Signs & Weight: Vital Signs (12 hours) Temp Pulse Resp BP Pulse Ox 05/06/20 04:20 98.3 F 93 18 108/63 100 05/05/20 20:25 98.8 F 110 H 24 H 110/70 96 Weight Admit Weight 77 kg Weight 77 kg I&O: 05/05/20 05/06/20 05/07/20 06:59 06:59 06:59 Intake Total 3350 1180 Balance 3350 1180 Result Diagrams: 05/06/20 04:57 05/06/20 04:57 Phys Exam - Physical Examination Constitutional: NAD HEENT: PERRLA, moist MMs Respiratory: no wheezing bilateral crackles Cardiovascular: RRR, no significant murmur Gastrointestinal: soft, non-tender Musculoskeletal: no edema, pulses present Dx/Plan (1) Acute respiratory failure with hypoxia Code(s): J96.01 - ACUTE RESPIRATORY FAILURE WITH HYPOXIA Status: Acute (2) COVID-19 Code(s): U07.1 - COVID-19 Status: Acute (3) Lung cancer Code(s): C34.90 - MALIGNANT NEOPLASM OF UNSP PART OF UNSP BRONCHUS OR LUNG Status: Chronic (4) GERD (gastroesophageal reflux disease) Code(s): K21.9 - GASTRO-ESOPHAGEAL REFLUX DISEASE WITHOUT ESOPHAGITIS Status: Acute (5) Lung mass Code(s): R91.8 - OTHER NONSPECIFIC ABNORMAL FINDING OF LUNG FIELD Status: Acute (6) HTN (hypertension) Code(s): I10 - ESSENTIAL (PRIMARY) HYPERTENSION Status: Chronic - Plan Plan: #Acute hypoxic respiratory failure 2/2 to worsening lung cancer vs. superimposed pneumonia vs. covid - On RA this am - d/c vanc, cefepime with negative cultures, procalcitonin - Albuterol INH, steroids, lovenox, continue supportive care - Palliative on board - Pt does not qualify for remdesiver. Conv Plasma administered 05/04. #Presumptive sepsis 2/2 COVID 19 vs above - see above #Stage IV Lung cancer with mets to brain -Palliative on board -Patient follows with Dr. Olivo outpatient. Discussed case with Dr. Fernandez. -CT Chest: R upper lobe spiculated mass with increased size in right hilar mass. Pt improved this morning so will hold of on onc consult intpt but if doesn't improve/worsens tomorrow then consider heme/onc consult #COVID-19 positive -Estimated Initial date of symptoms: 04/26/20 -Pt on baseline dexamethasone BID, s/p Solumedrol 125mg #A-Fib - new onset - rvr resolved with digoxin - Amiodarone held as pt converted to NSR - Cardiology consulted, appreciate recs - start dilt PO per cardiology #CAD s/p stents -Continue home plavix, aspirin, and atorvastatin #PVD -Stable #HTN -Will monitor Code: Full Prophylaxis: lovenox Fluids: SL Diet: Regular Disposition: pending placement PCP: Dr. Mederos
[2020-05-06] MEDS: Folic Acid 1 MG TAB PO SCH (08:42)
[2020-05-06] MEDS: Enoxaparin Sodium 40 MG/0.4 ML SYRINGE SC SCH (08:42)
[2020-05-06] MEDS: Lisinopril 5 MG TAB PO SCH (08:42)
[2020-05-06] MEDS: Aspirin 81 mg Enteric Coated Tablet PO SCH (08:42)
[2020-05-06] MEDS: Digoxin 0.125 MG TAB PO SCH (08:42)
[2020-05-06] MEDS: Dexamethasone 4 MG TAB PO SCH ×2 (08:43→20:09)
[2020-05-06] MEDS: Atorvastatin Calcium 40 MG TAB PO SCH (20:09)
[2020-05-06 20:19] VITALS: BP 91/63; TEMP 98.6
--- NOTE | 2020-05-07 14:41 | DIS ---
DATE OF ADMISSION: 05/01/2020 DATE OF DISCHARGE: 05/06/2020 RESIDENT: Shmuel Maldonado DO ADMITTING ATTENDING: Sree Davis MD DISCHARGE ATTENDING: Filiberto Donaldson MD CONSULTS: Cardiology, Saadia Thapa MD. PROCEDURE: None. PRIMARY DIAGNOSES: 1. Acute hypoxic respiratory failure secondary to COVID. 2. History of metastatic stage IV lung cancer. 3. Metastatic lesions to the brain. 4. Atrial fibrillation, new onset. 5. Coronary artery disease, status post stents. 6. Peripheral vascular disease. 7. Hypertension. DISCHARGE MEDICATIONS: 1. Meclizine 25 mg p.o. t.i.d. p.r.n. vertigo. 2. Folic acid 1 mg p.o. daily. 3. Aspirin 81 mg p.o. daily. 4. Atorvastatin 40 mg p.o. at night. 5. Senokot two tabs p.o. b.i.d. 6. Tylenol 650 mg p.o. q.4 hour p.r.n. pain. 7. Lisinopril 5 mg p.o. daily. 8. Diltiazem 120 mg p.o. daily extended release. 9. Proventil 2 puffs inhaled q.4 hour wheezing. DISCONTINUED MEDICATIONS: None. 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 He was initially on high-flow oxygen with good saturations and fairly the rest of his physical exam was benign. We continued him on high-flow oxygen. Subsequently, he did go into AFib with mildly low blood pressures compared to his normal. His highest heart rate was in the 130s and 140s. He was fairly asymptomatic. At this time, he was transferred to telemetry. He was started on digoxin 0.5 mg IV one time, which actually resolved his atrial fibrillation. He returned to normal sinus rhythm. We spoke with Cardiology, who also recommended an amiodarone drip, but this was not started due to his conversion to normal sinus rhythm. He subsequently stayed in normal sinus rhythm with the digoxin. On the day of discharge, he was converted to diltiazem 120 mg extended release p.o. daily. At that time, we did not start him on anticoagulation, but this could be considered in the outpatient setting. Given his poor prognosis, we did not start it. He has had conversations with Dr. Olivo, the Oncology team. They recommended the patient go to hospice, but the patient is not willing at this time. After the subsequent move to telemetry, the patient was taken off high-flow oxygen and actually saturated well on room air. Due to his good oxygen saturations, we discharged the patient back to his facility. He did not receive Remdesivir, convalescent plasma due to his poor prognosis as well. I did touch base with Dr. Hamm regarding this. DISPOSITION: Stable. DISCHARGE INSTRUCTIONS: 1. Location: [facility]. 2. Diet: Heart-healthy. 3. Activity: Ad jessi. 4. Followup: Follow up with primary care provider within one week. Follow up with Dr. Olivo in the next 2 to 4 weeks. Job ID: [id number]
--- NOTE | 2020-05-11 06:25 | PQF ---
Dear : Filiberto Donaldson Date 05/11/20 Please exercise your independent, professional judgment in responding to the clarification form. Clinical indicators are provided on the bottom of this form for your review Can you please further clarify if Sepsis is ruled in or ruled out? Sepsis [ ] Ruled in diagnosis [ ] Continue to treat [ ] Resolved [ ] Ruled out diagnosis [ ] Improving [ ] Cannot rule out diagnosis [ ] Other diagnosis [ ] Unable to determine Physician Signature: Date/Time: For continuity of documentation, please document condition throughout progress notes and discharge summary. Thank You. To be completed by CDI/Coding staff for physician review: Present Clinical Indicators - Signs / Symptoms / Labs Results and Location in Medical Record [ x ] VS: BP: 125/91, Pulse 112, RR : 25, Temp 99.8 ED Provider pg.2 [ x ] Tachycardic ED Provider pg.2 [ x ] Sepsis ED Provider pg.3 [ x ] Acute hypoxic respiratory failure 2/2 worsening lung cancer vs superimposed pneumonia H and P pg.4 [ x ] Presumptive Sepsis 2/2 COVID19 H and P pg.5 [ x ] Presented with acute hypoxic failure 2/2 covid and potentially 2/2 worsening lung cancer DS pg.1 [ x ] WBC: 10.7, 7.9, 6.9,6.7, 8.1 Laboratory Present Risk Factors Results and Location in Medical Record [ x ] 65 years old H and P pg.1 [ x ] Lung cancer H and P pg.1 [ x ] COVID19 H and P pg.4 [ x ] Pneumonia H and P pg.4 Present Treatments Results and Location in Medical Record [ x ] IV fluids MAR [ x ] Vancomycin 1.5g IV MAR [ x ] WBC Monitoring Laboratory [ x ] Chest X ray ED Provider pg.2 CDS/Potline Monitor Signature: Celio Ordonez Phone #: ext [phone] Date 05/11/20 This is a permanent part of the Medical Record [facility]
--- NOTE | 2020-05-20 00:02 | PQF ---
Dear Fabián Hair Date 05/20/2020 Please exercise your independent, professional judgment in responding to the clarification form. Clinical indicators are provided on the bottom of this form for your review Can you please further clarify if Sepsis is ruled in or ruled out? Sepsis [ x ] Ruled in diagnosis [ ] Continue to treat [ x] Resolved [ ] Ruled out diagnosis [ ] Improving [ ] Cannot rule out diagnosis [ ] Other diagnosis [ ] Unable to determine Physician Signature: Date/Time: For continuity of documentation, please document condition throughout progress notes and discharge summary. Thank You. To be completed by CDI/Coding staff for physician review: Present Clinical Indicators - Signs / Symptoms / Labs Results and Location in Medical Record [ x ] VS: BP: 125/91, Pulse 112, RR : 25, Temp 99.8 ED Provider pg.2 [ x ] Tachycardic ED Provider pg.2 [ x ] Sepsis ED Provider pg.3 [ x ] Acute hypoxic respiratory failure 2/2 worsening lung cancer vs superimposed pneumonia H and P pg.4 [ x ] Presumptive Sepsis 2/2 COVID19 H and P pg.5 [ x ] Presented with acute hypoxic failure 2/2 covid and potentially 2/2 worsening lung cancer DS pg.1 [ x ] WBC: 10.7, 7.9, 6.9,6.7, 8.1 Laboratory Present Risk Factors Results and Location in Medical Record [ x ] 65 years old H and P pg.1 [ x ] Lung cancer H and P pg.1 [ x ] COVID19 H and P pg.4 [ x ] Pneumonia H and P pg.4 Present Treatments Results and Location in Medical Record [ x ] IV fluids MAR [ x ] Vancomycin 1.5g IV MAR [ x ] WBC Monitoring Laboratory [ x ] Chest X ray ED Provider pg.2 CDS/Pattern Keeper Signature: JennieluisCelio Phone #: ext [phone] Date 05/20/2020 This is a permanent part of the Medical Record [facility]
== END 2020-05-06 20:50 | DRG 177 ==
LOC: ERS 20:03 → T4-B 21:29 → 2SW 05-04 18:58
PROVIDERS: ADMIT Family Medicine; ATTEND Family Medicine
PROC: 8E0ZXY6 Isolation (ICD-10-PCS; principal; 2020-05-01)
DX: U07.1 COVID-19 (principal); J96.01 Acute respiratory failure with hypoxia; C34.90 Malignant neoplasm of unspecified part of unspecified bronchus or lung; C79.31 Secondary malignant neoplasm of brain; R64 Cachexia; I25.10 Atherosclerotic heart disease of native coronary artery without angina pectoris; E03.9 Hypothyroidism, unspecified; I10 Essential (primary) hypertension; E78.5 Hyperlipidemia, unspecified; E78.00 Pure hypercholesterolemia, unspecified; I73.9 Peripheral vascular disease, unspecified; K21.9 Gastro-esophageal reflux disease without esophagitis; I48.91 Unspecified atrial fibrillation; I25.2 Old myocardial infarction; Z87.891 Personal history of nicotine dependence; Z91.040 Latex allergy status; Z79.82 Long term (current) use of aspirin; Z79.899 Other long term (current) drug therapy; Z68.27 Body mass index [BMI] 27.0-27.9, adult
CPT/HCPCS: 36415; 36430; 80048; 80076; 80202; 82728; 82805; 83615; 83735; 84145; 84443; 85025; 85379; 86140; 86850; 86900; 86901; 93005; 93010; J0692; J1160; J1650; J2930; J3370; J3475; J3490; J8540; P9017; U0002